=== PATIENT | male | born 1945 | race Caucasian/White ===

== ENCOUNTER → 2016-05-20 | Outpatient (CLI) | payer MEDICARE, OTHER ==
[2016-03-27 17:46] VITALS: BP 183/106
[~2016-05-20] MED LIST: ATOR10TA PO; CARV12.5 PO; CARV12.52 PO; CARV6.252 PO; CHOL10003 PO; DICL100G7 TP; FINA5TAB4 PO; FURO40TA4 PO; GADOBUTROL 10 MMOL/10 ML VIAL IV ONE; GARL5000 PO; HYDR-963 PO; KRIL1CAP5 PO; LIDO700A4 TD; LOSA50TA6 PO; MONT10TA6 PO; MONT10TA9 PO; MULT1TAB52 PO; OMEG1CAP6 PO; OMEG500C PO; OXYC-323 PO; POTA10TA10 PO; TAMS0.4C2 PO; TIZA4TAB PO; WARF1TAB PO; WARF3TAB7 PO; WARF5TAB PO; WARF7.5T6 PO
--- NOTE | 2016-05-20 11:17 | KCIC ---
PROCEDURE MRI left wrist without contrast dated 05/20/2016. HISTORY Left wrist pain. History of rheumatoid arthritis. TECHNIQUE Routine multiplanar multisequence MR imaging of left wrist performed. The study was initially scheduled as a with and without contrast exam, however the patient refused administration of IV contrast. COMPARISON None. FINDINGS Small radiocarpal and midcarpal joint effusions with thickening and increased signal of the joint capsule. Suspect small loose bodies or debris at the radiocarpal joint space. Nodular focus inferior to the pisiform bone measures 5 millimeters. Mild degenerate changes at the proximal and mid carpal row. Moderate degenerate change of the 1st carpometacarpal joint and scaphoid trapezial joint. Thinning and surface irregularity of the articular cartilage. Probable full-thickness cartilage loss of the scaphotrapezial joint and 1st carpal metacarpal joint with near full-thickness cartilage loss at the radioscaphoid articulation. Mild subchondral edema at the distal pole of the scaphoid possible small erosion at the distal pole of the scaphoid with blunting of the ulnar styloid. Mild degenerative change of the pisotriquetral joint. There is no significant scapholunate dissociation. The volar band scapholunate ligament attachment is ill-defined. Dorsal band appears to be intact. Lunotriquetral ligament is grossly intact. There is deficiency of the central articular disc of the TFC complex with ulnar plus variance and ulnar-lunate abutment. The dorsal and volar radial ulnar ligament attachments are grossly intact. Foveal and styloid attachments are ill-defined. There is increased signal of the extensor carpi ulnaris tendon at the level of the ulnar groove. No tendon sheath fluid. Flexor and extensor tendons are otherwise intact. There is mild increased signal of the flexor tendons proximal to the carpal tunnel with mild edema in the peritendon soft tissues. Ulnar tunnel grossly intact. IMPRESSION - Thickening and increased signal of the joint capsule with small radiocarpal and midcarpal joint effusions. This is nonspecific but could be related to infectious or inflammatory synovitis, possibly related to known rheumatoid arthritis. - Proximal flexor tendinosis with mild tendinosis of the extensor carpi ulnaris. - Ill definition of the volar attachment of the scapholunate ligament complex, degeneration versus tear. There is no significant scapholunate dissociation. - Degeneration and/or tear of the TFC articular disc with ulnar-lunate abutment. There is also degeneration or tear of the foveal and styloid attachments. - Degenerative changes and chondromalacia at the carpus. There is also possible subtle erosive changes of the distal pole of the scaphoid bone and the ulnar-styloid, possibly related to inflammatory arthropathy. Electronically signed by: Fan Damian (May 20, 2016 11:15:40)
== END | disposition home or self-care (01) ==
LOC: KCIC MRI 09:10
PROVIDERS: ATTEND Plastic Surgery
DX: M25.531 Pain in right wrist (principal); M25.532 Pain in left wrist
CPT/HCPCS: 73221

== ENCOUNTER 2016-05-25 14:57 | Inpatient (IN) | payer MEDICARE, OTHER ==
[~2016-05-25] VITALS: Ht 180.3 cm; Wt 94.3 kg
[~2016-05-25 14:57] MED LIST changes: -CHOL10003 PO; -GADOBUTROL 10 MMOL/10 ML VIAL IV ONE; -WARF1TAB PO
--- NOTE | 2016-05-25 15:26 | RAD ---
EXAM: Chest one view. HISTORY: Chest pain. COMPARISON: 03/09/2016. FINDINGS: A frontal view of the chest is obtained. There are no confluent infiltrates. The lungs are expanded to the 11th posterior ribs. There is no pneumothorax or pleural effusion. The heart is not enlarged. IMPRESSION: 1. Hyperinflation. Correlate for air trapping. No confluent infiltrates.
[2016-05-25 15:57] LABS: BASO % 0 % (0-3); EOS % 1 % (0-3); HEMATOCRIT 37.8 % (39.0-53.0); HEMOGLOBIN 12.4 g/dL (13.0-17.5); LYMPH # 1.4 x10^3/uL (1.0-4.8); LYMPH % 13 % (24-48); MEAN CORPUSCULAR HEMOGLOBIN 29 pg (25-35); MEAN CORPUSCULAR HGB CONC 33 g/dL (31-37); MEAN CORPUSCULAR VOLUME 87 fL (79-100); MONO % 10 % (0-9); NEUT % 76 % (31-73); PLATELET COUNT 268 x10^3/uL (140-400); RED BLOOD COUNT 4.32 x10^6/uL (4.30-5.70); RED CELL DISTRIBUTION WIDTH 14.8 % (11.5-14.5); WHITE BLOOD COUNT 10.5 x10^3/uL (4.0-11.0)
[2016-05-25] MEDS ORDERED: LIDO:MAALOX:DONNATAL 1:1:1 15 ML SINGLE DOSE SWSW ONE (16:00)
[2016-05-25] MEDS ORDERED: IV NORMAL SALINE 1000ML BAG 1,000 ML IV SCH (16:06)
[2016-05-25 16:07] LABS: INR 2.4 (0.8-1.1); PROTHROMBIN TIME PATIENT 24.4 SEC (11.7-14.0)
[2016-05-25] MEDS ORDERED: ACETAMINOPHEN 325 MG TABLET. PO PRN (16:15)
[2016-05-25] MEDS ORDERED: NITROGLYCERIN SUBLINGUAL 0.4 MG BOTTLE OF 25. SL PRN (16:15)
[2016-05-25] MEDS ORDERED: ONDANSETRON PF 4 MG/2 ML VIAL. IV PRN (16:15)
[2016-05-25 16:18] LABS: ALBUMIN 3.4 g/dL (3.4-5.0); CALCIUM 9.3 mg/dL (8.5-10.1); CREATININE 0.8 mg/dL (0.7-1.3); DIRECT BILIRUBIN 0.4 mg/dL (0.0-0.2); GFR 95.3; POTASSIUM 3.9 mmol/L (3.5-5.1); TOTAL BILIRUBIN 0.9 mg/dL (0.2-1.0); TOTAL PROTEIN 7.8 g/dL (6.4-8.2)
--- NOTE | 2016-05-25 16:59 | RAD ---
EXAM: Right upper quadrant ultrasound. HISTORY: Right upper quadrant pain. COMPARISON: None. FINDINGS: Sonographic evaluation of the right upper quadrant was performed. The liver appears normal in parenchymal echotexture. There are no focal lesions. There is a gallstone within the gallbladder. There is no pericholecystic fluid or wall thickening. The bus monitor notes tenderness on scanning over the gallbladder. The common duct measures 10 mm. No distal obstructing lesion is identified. The visualized portions of the head and body of the pancreas reveal no abnormality. The right kidney measures 13.3 cm. Cortical thickness and echogenicity are preserved. There is no hydronephrosis. A large cyst at the right renal upper pole measures 8.5 x 7.6 cm. The inferior vena cava appears somewhat dilated in its hepatic portion. The abdominal aorta is not well seen, but no aneurysm is identified. IMPRESSION: 1. Cholelithiasis. There is no clear sonographic evidence of acute cholecystitis, but the bus monitor notes tenderness over the gallbladder. Correlate with other data to exclude acute cholecystitis. 2. Mild extrahepatic biliary dilatation without a clear distal obstructing lesion. Correlate for cholestasis. CT or MRI could further assess for obstruction if there is persistent concern. 3. Prominent inferior vena cava. Correlate for volume overload or right heart failure. 4. Large benign cyst at the right renal upper pole measuring 8.5 cm.
[2016-05-25] MEDS ORDERED: HYDROMORPHONE 2 MG/ML VIAL. IV ONE (17:15)
--- NOTE | 2016-05-25 18:37 | PHYS DOC ---
Past Medical History Past Medical History: A-Fib, Arthritis, Hypertension, Other Additional Past Medical Histor: KIDNEY DISEASE Past Surgical History: Knee Replacement, Tonsillectomy, Other Additional Past Surgical Histo: BACK, L HIP Alcohol Use: Occasionally Drug Use: None Adult General Chief Complaint Chief Complaint: GI PROBLEM HPI HPI Patient is a 71 year old gentleman who has no history significant for coronary artery disease presents to the ER today complaining of chest pain. Patient reports the pain started in his abdomen and then moved up to his chest and shoulder. Patient reports he normally goes to his chiropractor for discount discomfort. Patient describes the pain as a tightness in his chest. Patient reports pain is worsened when he sits up in bed. Patient denies any fevers shaking chills nausea vomiting diarrhea. Patient reports she does have some shortness of breath. Denies any diaphoresis. Patient reports he has a history atrial fibrillation and hypertension. Patient denies any diabetes liver or lung problems. Patient reports she has a history of stage II kidney disease. Patient has had not had any surgeries in the past. No prior MIs. Patient had a stress test in February 2016. Patient reports no prior cardiac catheter. Patient does not smoke or drink. Patient's physical exam here in the ED was significant for tenderness to palpation in his right upper quadrant. Patient has no Escalante sign. Patient's lungs were clear. Patient's heart revealed A. fib. Patient's ER workup was significant for normal labs, normal cardiac workup, ultrasound of his right upper quadrant which revealed gallstones and some mildly dilated hepatic ducts. There was no stones within docks. Review of Systems Review of Systems Constitutional: Denies fever or chills [] Eyes: Denies change in visual acuity, redness, or eye pain [] HENT: Denies nasal congestion or sore throat [] All other review of systems are negative except as documented in the history of present illness portion. Current Medications Current Medications Current Medications Medications (Trade) Dose Ordered Sig/Loretta Start Time Stop Time Status Last Admin Dose Admin Multi-Ingredient Mouthwash/Gargle (Gi Cocktail Single Dose) 15 ml 1X ONCE 05/25/16 16:00 05/25/16 16:01 DC 05/25/16 16:08 15 ML Allergies Allergies Allergies Coded Allergies Type Severity Reaction Last Updated Verified No Known Drug Allergies 03/17/16 No Physical Exam Physical Exam Constitutional: Well developed, well nourished, no acute distress, non-toxic appearance. [] HENT: Normocephalic, atraumatic, bilateral external ears normal, oropharynx moist, no oral exudates, nose normal. [] Eyes: PERRLA, EOMI, conjunctiva normal, no discharge. [] Neck: Normal range of motion, no tenderness, supple, no stridor. [] Cardiovascular:Heart rate regular rhythm, no murmur [] Lungs & Thorax: Bilateral breath sounds clear to auscultation [] Abdomen: Right upper quadrant tenderness to palpation. No Escalante sign. Skin: Warm, dry, no erythema, no rash. [] Back: No tenderness, no CVA tenderness. [] Extremities: No tenderness, no cyanosis, no clubbing, ROM intact, no edema. [] Neurologic: Alert and oriented X 3, normal motor function, normal sensory function, no focal deficits noted. [] Psychologic: Affect normal, judgement normal, mood normal. [] Current Patient Data Vital Signs Vital Signs Date Time Temp Pulse Resp B/P Pulse Ox O2 Delivery O2 Flow Rate FiO2 05/25/16 16:00 78 18 127/61 98 Room Air 05/25/16 15:07 97.8 97.8 Lab Values Laboratory Tests Test 05/25/16 15:37 White Blood Count 10.5x10^3/uL (4.0-11.0) Red Blood Count 4.32x10^6/uL (4.30-5.70) Hemoglobin 12.4g/dL (13.0-17.5) L Hematocrit 37.8% (39.0-53.0) L Mean Corpuscular Volume 87fL (79-100) Mean Corpuscular Hemoglobin 29pg (25-35) Mean Corpuscular Hemoglobin Concent 33g/dL (31-37) Red Cell Distribution Width 14.8% (11.5-14.5) H Platelet Count 268x10^3/uL (140-400) Neutrophils (%) (Auto) 76% (31-73) H Lymphocytes (%) (Auto) 13% (24-48) L Monocytes (%) (Auto) 10% (0-9) H Eosinophils (%) (Auto) 1% (0-3) Basophils (%) (Auto) 0% (0-3) Neutrophils # (Auto) 7.9x10^3uL (1.8-7.7) H Lymphocytes # (Auto) 1.4x10^3/uL (1.0-4.8) Monocytes # (Auto) 1.0x10^3/uL (0.0-1.1) Eosinophils # (Auto) 0.1x10^3/uL (0.0-0.7) Basophils # (Auto) 0.0x10^3/uL (0.0-0.2) Prothrombin Time 24.4SEC (11.7-14.0) H Prothrombin Time INR 2.4 (0.8-1.1) H Sodium Level 138mmol/L (136-145) Potassium Level 3.9mmol/L (3.5-5.1) Chloride Level 101mmol/L (98-107) Carbon Dioxide Level 30mmol/L (21-32) Anion Gap 7 (6-14) Blood Urea Nitrogen 19mg/dL (8-26) Creatinine 0.8mg/dL (0.7-1.3) Estimated GFR (Cockcroft-Gault) 95.3 Glucose Level 103mg/dL (70-99) H Calcium Level 9.3mg/dL (8.5-10.1) Total Bilirubin 0.9mg/dL (0.2-1.0) Direct Bilirubin 0.4mg/dL (0.0-0.2) H Aspartate Amino Transferase (AST) 206U/L (15-37) H Alanine Aminotransferase (ALT) 137U/L (16-63) H Alkaline Phosphatase 130U/L (46-116) H Troponin I Quantitative < 0.017ng/mL (0.000-0.055) QI-Phx-F-Type Natriuretic Peptide 851pg/mL (0-124) H Total Protein 7.8g/dL (6.4-8.2) Albumin 3.4g/dL (3.4-5.0) Lipase 168U/L (73-393) Laboratory Tests 05/25/16 15:37 Laboratory Tests 05/25/16 15:37 EKG EKG [] Radiology/Procedures Radiology/Procedures [] Course & Med Decision Making Course & Med Decision Making Pertinent Labs and Imaging studies reviewed. (See chart for details) [] Dragon Disclaimer Dragon Disclaimer This electronic medical record was generated, in whole or in part, using a voice recognition dictation system. Departure Departure Impression: Primary Impression: Atrial fibrillation Additional Impressions: Chest pain Angina pectoris Cholelithiasis Abdominal pain Disposition: ADMITTED INPATIENT Admitting Physician: Bassam Smith Condition: GUARDED Referrals: BASSAM SMITH MD (PCP) Problem Qualifiers KENDALL REYES MD May 25, 2016 18:36
[2016-05-25 19:30] VITALS: BP 152/81
[2016-05-25] MEDS ORDERED: CHOL10003 PO (19:33)
[2016-05-25] MEDS ORDERED: ATORVASTATIN CALCIUM 10 MG TABLET. PO SCH (21:00)
[2016-05-25] MEDS: TAMSULOSIN 0.4 MG CAP.ER.24H. PO SCH (21:19)
[2016-05-25] MEDS: MONTELUKAST SODIUM 10 MG TABLET. PO SCH (21:19)
[2016-05-25] MEDS: FINASTERIDE 5 MG TABLET PO SCH (21:19)
[2016-05-25] MEDS: OXYCODONE/APAP 5/325 TABLET. PO PRN (21:20)
[2016-05-25] MEDS: LOSARTAN POTASSIUM 50 MG TABLET. PO SCH (21:20)
[2016-05-25] MEDS: IV NORMAL SALINE 1000ML BAG 1,000 ML IV SCH (21:21)
[2016-05-25 22:38] VITALS: BP 151/89
[2016-05-25 23:40] VITALS: BP 147/70
[2016-05-26] VITALS (21 sets, daily range): BP systolic 151–182; BP diastolic 74–113
[2016-05-26] MEDS: OXYCODONE/APAP 5/325 TABLET. PO PRN ×5 (01:52→22:10)
[2016-05-26 03:45] LABS: HEMATOCRIT 33.7 % (39.0-53.0); RED BLOOD COUNT 3.85 x10^6/uL (4.30-5.70); RED CELL DISTRIBUTION WIDTH 14.2 % (11.5-14.5); WHITE BLOOD COUNT 5.5 x10^3/uL (4.0-11.0)
[2016-05-26 03:55] LABS: INR 1.9 (0.8-1.1); PROTHROMBIN TIME PATIENT 20.7 SEC (11.7-14.0)
[2016-05-26 04:04] LABS: ALBUMIN 3.3 g/dL (3.4-5.0); CREATININE 0.7 mg/dL (0.7-1.3); GFR 111.2; POTASSIUM 3.7 mmol/L (3.5-5.1); TOTAL BILIRUBIN 1.4 mg/dL (0.2-1.0); TOTAL PROTEIN 6.6 g/dL (6.4-8.2)
[2016-05-26] MEDS: FENTANYL PF 100 MCG/2 ML VIAL. IV PRN ×2 (04:44→08:31)
--- NOTE | 2016-05-26 06:36 | EKG ---
[facility] [address] [place] [address] Test Date: 2016-05-25 Test Time: 15:09:10 Pat Name: SHAUNA ARRIAZA Department: Room: 206 1 Gender: M Entry Specialist: : 1945 Requested By: KENDALL REYES Order Number: [id number] Reading MD: Naye Lara Measurements Intervals [place] Rate: 92 P: MS: QRS: 34 QRSD: 88 T: 37 QT: 352 QTc: 440 Interpretive Statements ATRIAL FIBRILLATION LOW LIMB LEAD VOLTAGE QRS(T) CONTOUR ABNORMALITY CONSIDER ANTEROLATERAL MYOCARDIAL DAMAGE ABNORMAL ECG RI6.01 No previous ECG available for comparison Electronically Signed On 05-30-2016 19:29:52 [employer] by Naye Lara
[2016-05-26] MEDS ORDERED: ACETAMINOPHEN 325 MG TABLET. PO PRN (07:45)
[2016-05-26] MEDS ORDERED: LORAZEPAM 0.5 MG TABLET. PO PRN (08:00)
--- NOTE | 2016-05-26 08:08 | PDOC1 ---
SLICK RUTHERFORD GEOMAGNETICIAN 05/26/16 0807: HISTORY AND PHYSICAL Chief Complaint Chief Complaint This 71 year old male has been admitted with a chief complaint of chest pain starting in RUQ abdomen, racdiating into chest and into shoulder. The chest pain is tightness that worsened when he tried to set up. He denies palpitations, rapid heart rate, and shortness of breath. He underwent MPI lexiscan in Feb 2016 with low probability for cardiac event. He has been on warfarin post TKR. His EKG in ED was SR and CE troponin negative. He underwent sonogram of the RUQ with tenderness, + cholelithiasis without signs acute cholecystitis. There was mild extrahepatic biliary dilatation without a clear distal obstructing lesion. His LFTs were significantly elevated. He has been admitted for further evaluation and treatment. Problem List Problems Medical Problems: (1) Abdominal pain Status: Acute (2) Angina pectoris Status: Acute (3) Atrial fibrillation Status: Acute (4) Chest pain Status: Acute (5) Cholelithiasis Status: Acute Past Medical History Cardiovascular: HTN, Hyperlipidemia Psych: Anxiety Musculoskeletal: low back pain (DDD LS mild spinal canal stenosis L3-L4), Osteoarthritis (R hip ), Other (bilateral wrist pain/weakness, L shoulder pain with reduced ROM) Renal/: Benign prostatic enlarg. (wiith obstructive symptoms ) Past Surgical History PSH hemilaminectomy L4-L5 Past Surgical History: Total knee replacement (Right Mar 2016), Tonsillectomy Past Family History PFH Non contributory Past Social History PSH , negative tobacco, occasion ETOH, negative illicit drugs. Review of Symptoms Review of Symptoms A 14 point ROS was completed with the following noted as positive: per HPI Other systems reviewed and negative. Medications Medications reviewed and reconciled Allergy Allergies Coded Allergies Type Severity Reaction Last Updated Verified No Known Drug Allergies 03/17/16 No Physical Exam Physical Exam General appearance - alert, anxious crying. in mod distress Mental Status - alert, oriented to person, place, and time, anxious Head - normal Chest - clear to auscultation, no wheezes, rales or rhonchi, symmetric air entry Heart - S1 and S2 normal Abdomen - soft, + tender RUQ, BS +, obese Neurological - no acute focal neurological deficit noted Musculoskeletal - R hip pain with movement, pain bilateral wrist, Pain with decreased ROM L shoulder Extremities - no pedal edema Skin - warm and dry VTE Prophylaxis Ordered VTE Prophylaxis Devices: Yes VTE Pharmacological Prophylaxi: No (currently on warfarin ) Assessment Labs Laboratory Tests Test 05/25/16 15:37 05/25/16 21:20 05/26/16 03:17 White Blood Count 10.5x10^3/uL (4.0-11.0) 5.5x10^3/uL (4.0-11.0) Red Blood Count 4.32x10^6/uL (4.30-5.70) 3.85x10^6/uL (4.30-5.70) Hemoglobin 12.4g/dL (13.0-17.5) 11.0g/dL (13.0-17.5) Hematocrit 37.8% (39.0-53.0) 33.7% (39.0-53.0) Mean Corpuscular Volume 87fL (79-100) 87fL (79-100) Mean Corpuscular Hemoglobin 29pg (25-35) 29pg (25-35) Mean Corpuscular Hemoglobin Concent 33g/dL (31-37) 33g/dL (31-37) Red Cell Distribution Width 14.8% (11.5-14.5) 14.2% (11.5-14.5) Platelet Count 268x10^3/uL (140-400) 204x10^3/uL (140-400) Neutrophils (%) (Auto) 76% (31-73) Lymphocytes (%) (Auto) 13% (24-48) Monocytes (%) (Auto) 10% (0-9) Eosinophils (%) (Auto) 1% (0-3) Basophils (%) (Auto) 0% (0-3) Neutrophils # (Auto) 7.9x10^3uL (1.8-7.7) Lymphocytes # (Auto) 1.4x10^3/uL (1.0-4.8) Monocytes # (Auto) 1.0x10^3/uL (0.0-1.1) Eosinophils # (Auto) 0.1x10^3/uL (0.0-0.7) Basophils # (Auto) 0.0x10^3/uL (0.0-0.2) Prothrombin Time 24.4SEC (11.7-14.0) 20.7SEC (11.7-14.0) Prothromb Time International Ratio 2.4 (0.8-1.1) 1.9 (0.8-1.1) Sodium Level 138mmol/L (136-145) 143mmol/L (136-145) Potassium Level 3.9mmol/L (3.5-5.1) 3.7mmol/L (3.5-5.1) Chloride Level 101mmol/L (98-107) 103mmol/L (98-107) Carbon Dioxide Level 30mmol/L (21-32) 32mmol/L (21-32) Anion Gap 7 (6-14) 8 (6-14) Blood Urea Nitrogen 19mg/dL (8-26) 19mg/dL (8-26) Creatinine 0.8mg/dL (0.7-1.3) 0.7mg/dL (0.7-1.3) Estimated GFR (Cockcroft-Gault) 95.3 111.2 Glucose Level 103mg/dL (70-99) 92mg/dL (70-99) Calcium Level 9.3mg/dL (8.5-10.1) 9.0mg/dL (8.5-10.1) Total Bilirubin 0.9mg/dL (0.2-1.0) 1.4mg/dL (0.2-1.0) Direct Bilirubin 0.4mg/dL (0.0-0.2) Aspartate Amino Transf (AST/SGOT) 206U/L (15-37) 426U/L (15-37) Alanine Aminotransferase (ALT/SGPT) 137U/L (16-63) 398U/L (16-63) Alkaline Phosphatase 130U/L (46-116) 182U/L (46-116) Troponin I Quantitative < 0.017ng/mL (0.000-0.055) < 0.017ng/mL (0.000-0.055) < 0.017ng/mL (0.000-0.055) HH-Wgc-V-Type Natriuretic Peptide 851pg/mL (0-124) Total Protein 7.8g/dL (6.4-8.2) 6.6g/dL (6.4-8.2) Albumin 3.4g/dL (3.4-5.0) 3.3g/dL (3.4-5.0) Lipase 168U/L (73-393) BUN/Creatinine Ratio 27 (6-20) Albumin/Globulin Ratio 1.0 (1.0-1.7) Laboratory Tests Test 05/25/16 15:37 05/25/16 21:20 05/26/16 03:17 White Blood Count 10.5x10^3/uL (4.0-11.0) 5.5x10^3/uL (4.0-11.0) Red Blood Count 4.32x10^6/uL (4.30-5.70) 3.85x10^6/uL (4.30-5.70) Hemoglobin 12.4g/dL (13.0-17.5) 11.0g/dL (13.0-17.5) Hematocrit 37.8% (39.0-53.0) 33.7% (39.0-53.0) Mean Corpuscular Volume 87fL (79-100) 87fL (79-100) Mean Corpuscular Hemoglobin 29pg (25-35) 29pg (25-35) Mean Corpuscular Hemoglobin Concent 33g/dL (31-37) 33g/dL (31-37) Red Cell Distribution Width 14.8% (11.5-14.5) 14.2% (11.5-14.5) Platelet Count 268x10^3/uL (140-400) 204x10^3/uL (140-400) Neutrophils (%) (Auto) 76% (31-73) Lymphocytes (%) (Auto) 13% (24-48) Monocytes (%) (Auto) 10% (0-9) Eosinophils (%) (Auto) 1% (0-3) Basophils (%) (Auto) 0% (0-3) Neutrophils # (Auto) 7.9x10^3uL (1.8-7.7) Lymphocytes # (Auto) 1.4x10^3/uL (1.0-4.8) Monocytes # (Auto) 1.0x10^3/uL (0.0-1.1) Eosinophils # (Auto) 0.1x10^3/uL (0.0-0.7) Basophils # (Auto) 0.0x10^3/uL (0.0-0.2) Prothrombin Time 24.4SEC (11.7-14.0) 20.7SEC (11.7-14.0) Prothromb Time International Ratio 2.4 (0.8-1.1) 1.9 (0.8-1.1) Sodium Level 138mmol/L (136-145) 143mmol/L (136-145) Potassium Level 3.9mmol/L (3.5-5.1) 3.7mmol/L (3.5-5.1) Chloride Level 101mmol/L (98-107) 103mmol/L (98-107) Carbon Dioxide Level 30mmol/L (21-32) 32mmol/L (21-32) Anion Gap 7 (6-14) 8 (6-14) Blood Urea Nitrogen 19mg/dL (8-26) 19mg/dL (8-26) Creatinine 0.8mg/dL (0.7-1.3) 0.7mg/dL (0.7-1.3) Estimated GFR (Cockcroft-Gault) 95.3 111.2 Glucose Level 103mg/dL (70-99) 92mg/dL (70-99) Calcium Level 9.3mg/dL (8.5-10.1) 9.0mg/dL (8.5-10.1) Total Bilirubin 0.9mg/dL (0.2-1.0) 1.4mg/dL (0.2-1.0) Direct Bilirubin 0.4mg/dL (0.0-0.2) Aspartate Amino Transf (AST/SGOT) 206U/L (15-37) 426U/L (15-37) Alanine Aminotransferase (ALT/SGPT) 137U/L (16-63) 398U/L (16-63) Alkaline Phosphatase 130U/L (46-116) 182U/L (46-116) Troponin I Quantitative < 0.017ng/mL (0.000-0.055) < 0.017ng/mL (0.000-0.055) < 0.017ng/mL (0.000-0.055) MZ-Kdy-H-Type Natriuretic Peptide 851pg/mL (0-124) Total Protein 7.8g/dL (6.4-8.2) 6.6g/dL (6.4-8.2) Albumin 3.4g/dL (3.4-5.0) 3.3g/dL (3.4-5.0) Lipase 168U/L (73-393) BUN/Creatinine Ratio 27 (6-20) Albumin/Globulin Ratio 1.0 (1.0-1.7) Plan Plan IMPRESSION: 1. acute RUQ abdominal pain cholelithiasis with transaminitis 2. chest pain r/t RUQ pain 3. malignant HTN 4. anxiety 5. hyperlipidemia 6. chronic LBP with h/o DDD LS 7. anemia chronic disease 8. anticoagulation therapy post R TKR 9. bilateral wrist pain with weakness 10. R hip pain OA 11. obstructive BPH PLAN: chest pain Rowena scan MPI 02/2016 low prob cardiac event CE negative cardiology consult secondary to cholelithiasis RUQ pain/cholelithiasis surgical consult GI consult transaminitis Admit AST 206 05/26 426 ALT 130 398 AP 130 185 Direct bili 1.4 IV NS 75cc/hr anticoagulation post TKR Admit INR 2.4 05/26 1.9 pharmacy to manage post op malignant HTN give oral meds this morning with sip water treat anxiety-Ativan 0.5mg IV q6hr prn hydralazine 10mg IV prn q6hr obstructive BPH will need resumption medications -sx are severe w/o meds DVT/GI prophylaxis SCD/Estuardo Pepcid For more details regarding further plans, please refer to the orders. BASSAM SMITH MD 05/26/16 1117: HISTORY AND PHYSICAL Plan Plan Chest pain is noncardiac. He is very anxious.D/w patient ,his and staff. INR 1.7. May need more FFP. Has some swelling of wrists.MRI d/w him. IV Ativan. LFts elevated. The patient was seen and examined by me. Chart reviewed and plan of care formulated. Discussed with, reviewed and agree with PYTHON DEVELOPER's notes, plan of care and orders with modifications as necessary. For more details regarding further plans, please refer to the orders. SLICK RUTHERFORD APRN May 26, 2016 08:07 BASSAM SMITH MD May 26, 2016 11:17
[2016-05-26] MEDS: CARVEDILOL 12.5 MG TABLET PO SCH (08:23)
[2016-05-26] MEDS: CHOLECALCIFEROL (VITAMIN D3) 1,000 UNIT TABLET PO SCH (08:34)
[2016-05-26] MEDS: MULTIVITAMIN with MINERAL TABLET. PO SCH (08:34)
[2016-05-26] MEDS ORDERED: EPA PO SCH (09:00)
[2016-05-26] MEDS ORDERED: [UNRECOGNIZED DRUG - OTHER] PO SCH (09:00)
[2016-05-26] MEDS ORDERED: ASTX PO SCH (09:00)
[2016-05-26] MEDS ORDERED: LIP PO SCH (09:00)
[2016-05-26] MEDS ORDERED: DHA PO SCH (09:00)
[2016-05-26] MEDS ORDERED: KRILL PO SCH (09:00)
[2016-05-26] MEDS ORDERED: GARLIC PO SCH (09:00)
[2016-05-26 09:02] LABS: INR 1.7 (0.8-1.1); PROTHROMBIN TIME PATIENT 18.7 SEC (11.7-14.0)
[2016-05-26] MEDS: IV NORMAL SALINE 1000ML BAG 1,000 ML IV SCH ×2 (09:07→23:55)
[2016-05-26] MEDS ORDERED: SINCALIDE 2 MCG in IV NORMAL SALINE 50ML 30 ML IV ONE (09:30)
--- NOTE | 2016-05-26 09:30 | PDOC2 ---
DIANE BUCHANAN FACULTY RESEARCH PHYSICIAN 05/26/16 0930: CARDIAC CONSULT DATE OF CONSULT Date of Consult DATE: 05/26/16 TIME: 09:23 REASON FOR CONSULT Reason for Consult: Chest pain REFERRING PHYSICIAN Referring Physician: Jovanna SOURCE Source: Chart review, Patient HISTORY OF PRESENT ILLNESS HISTORY OF PRESENT ILLNESS This is a pleasant gentleman admitted for complains of abdominal pain. Reports that this occurred yesterday afternoon after going to the bathroom. Started having diffuse abdominal pain which then went midchest then to right shoulder momentarily then dissipated and lasted about 20 minutes but her abdominal pain lingered. Denies any nausea, SOA, palpitations. He is compliant with his cardiac medications. Upon admission he was then noted with gallstones and biliary duct dilatation. Currently he is doing better. He recently had TKA on 03/2016 and also had stress test prior to that and he did very well. Denies any activity intolerance and no exertional SOA. PAST MEDICAL HISTORY Cardiovascular: AFIB, HTN, Hyperlipidemia Pulmonary: Asthma Heme/Onc: Other (chronic anticoagulation) Psych: Anxiety Musculoskeletal: low back pain (lumbar stenosis), Osteoarthritis Renal/: Chronic renal insuff (CKD2), Benign prostatic enlarg. PAST SURGICAL HISTORY Past Surgical History: Total hip replacement (left), Total knee replacement ( right (03/2016)), Tonsillectomy, Other (back surgery) FAMILY HISTORY Family History: Diabetes (father) SOCIAL HISTORY Smoke: No (quit) ALCOHOL: none Drugs: None Lives: with Family CURRENT MEDICATIONS CURRENT MEDICATIONS Current Medications Medications (Trade) Dose Ordered Sig/Loretta Route PRN Reason Start Time Stop Time Status Last Admin Dose Admin Multi-Ingredient Mouthwash/Gargle (Gi Cocktail Single Dose) 15 ml 1X ONCE SWSW 05/25/16 16:00 05/25/16 16:01 DC 05/25/16 16:08 Fentanyl Citrate (Fentanyl 2ml Vial) 50 mcg PRN Q2HR PRN IV PAIN 05/25/16 16:15 05/26/16 16:14 05/26/16 08:31 Hydromorphone HCl (Dilaudid) 1 mg 1X ONCE IV 05/25/16 17:15 05/25/16 17:16 DC 05/25/16 17:22 Atorvastatin Calcium (Lipitor) 10 mg QHS PO 05/25/16 21:00 05/26/16 07:46 DC 05/25/16 21:20 Carvedilol (Coreg) 12.5 mg DAILYWBKFT PO 05/26/16 08:00 05/26/16 08:23 Finasteride (Proscar) 5 mg QHS PO 05/25/16 21:00 05/25/16 21:19 Losartan Potassium (Cozaar) 50 mg QHS PO 05/25/16 21:00 05/25/16 21:20 Montelukast Sodium (Singulair) 10 mg HS PO 05/25/16 21:00 05/25/16 21:19 Oxycodone/ Acetaminophen (Percocet 5/325) 1 tab PRN Q4HRS PRN PO SEVERE PAIN 05/25/16 21:00 05/26/16 06:17 Tamsulosin HCl 0.8 mg 0.8 mg QHS PO 05/25/16 21:00 05/25/16 21:19 Sodium Chloride (Iv Sodium Chloride 0.9% 1000ml Bag) 1,000 ml @ 75 mls/hr [id number] IV 05/25/16 21:15 05/26/16 09:07 Lorazepam (Ativan) 0.5 mg PRN Q6HRS PRN PO ANXIETY / AGITATION 05/26/16 08:00 05/26/16 08:27 DC 05/26/16 08:22 ALLERGIES ALLERGIES: Coded Allergies: No Known Drug Allergies (Unverified , 03/17/16) ROS Review of System 14 point ROS evaluated with pertinent positives noted per HPI PHYSICAL EXAM General: Alert, Oriented X3, Cooperative, No acute distress HEENT: Atraumatic, Mucous membr. moist/pink Lungs: Other (faint bibasilar crackles) Heart: Normal S1, Normal S2, Other (AFIB; 2/6 systolic murmur to LLS border) Abdomen: Soft, No tenderness Extremities: No cyanosis, No edema Skin: No breakdown, No significant lesion Neuro: Normal speech, Sensation intact Psych/Mental Status: Mental status NL, Mood NL MUSCULOSKELETAL: Osteoarthritic changes both hands VITALS VITALS Vital Signs Date Time Temp Pulse Resp B/P Pulse Ox O2 Delivery O2 Flow Rate FiO2 05/26/16 09:04 18 99 Room Air 05/26/16 08:23 69 173/99 2/21/17 06:45 97.5 97.5 LABS Lab: Laboratory Tests Test 05/25/16 15:37 05/25/16 21:20 05/26/16 03:17 05/26/16 08:38 White Blood Count 10.5x10^3/uL (4.0-11.0) 5.5x10^3/uL (4.0-11.0) Red Blood Count 4.32x10^6/uL (4.30-5.70) 3.85x10^6/uL (4.30-5.70) Hemoglobin 12.4g/dL (13.0-17.5) 11.0g/dL (13.0-17.5) Hematocrit 37.8% (39.0-53.0) 33.7% (39.0-53.0) Mean Corpuscular Volume 87fL (79-100) 87fL (79-100) Mean Corpuscular Hemoglobin 29pg (25-35) 29pg (25-35) Mean Corpuscular Hemoglobin Concent 33g/dL (31-37) 33g/dL (31-37) Red Cell Distribution Width 14.8% (11.5-14.5) 14.2% (11.5-14.5) Platelet Count 268x10^3/uL (140-400) 204x10^3/uL (140-400) Neutrophils (%) (Auto) 76% (31-73) Lymphocytes (%) (Auto) 13% (24-48) Monocytes (%) (Auto) 10% (0-9) Eosinophils (%) (Auto) 1% (0-3) Basophils (%) (Auto) 0% (0-3) Neutrophils # (Auto) 7.9x10^3uL (1.8-7.7) Lymphocytes # (Auto) 1.4x10^3/uL (1.0-4.8) Monocytes # (Auto) 1.0x10^3/uL (0.0-1.1) Eosinophils # (Auto) 0.1x10^3/uL (0.0-0.7) Basophils # (Auto) 0.0x10^3/uL (0.0-0.2) Prothrombin Time 24.4SEC (11.7-14.0) 20.7SEC (11.7-14.0) 18.7SEC (11.7-14.0) Prothromb Time International Ratio 2.4 (0.8-1.1) 1.9 (0.8-1.1) 1.7 (0.8-1.1) Sodium Level 138mmol/L (136-145) 143mmol/L (136-145) Potassium Level 3.9mmol/L (3.5-5.1) 3.7mmol/L (3.5-5.1) Chloride Level 101mmol/L (98-107) 103mmol/L (98-107) Carbon Dioxide Level 30mmol/L (21-32) 32mmol/L (21-32) Anion Gap 7 (6-14) 8 (6-14) Blood Urea Nitrogen 19mg/dL (8-26) 19mg/dL (8-26) Creatinine 0.8mg/dL (0.7-1.3) 0.7mg/dL (0.7-1.3) Estimated GFR (Cockcroft-Gault) 95.3 111.2 Glucose Level 103mg/dL (70-99) 92mg/dL (70-99) Calcium Level 9.3mg/dL (8.5-10.1) 9.0mg/dL (8.5-10.1) Total Bilirubin 0.9mg/dL (0.2-1.0) 1.4mg/dL (0.2-1.0) Direct Bilirubin 0.4mg/dL (0.0-0.2) Aspartate Amino Transf (AST/SGOT) 206U/L (15-37) 426U/L (15-37) Alanine Aminotransferase (ALT/SGPT) 137U/L (16-63) 398U/L (16-63) Alkaline Phosphatase 130U/L (46-116) 182U/L (46-116) Troponin I Quantitative < 0.017ng/mL (0.000-0.055) < 0.017ng/mL (0.000-0.055) < 0.017ng/mL (0.000-0.055) XX-Epi-L-Type Natriuretic Peptide 851pg/mL (0-124) Total Protein 7.8g/dL (6.4-8.2) 6.6g/dL (6.4-8.2) Albumin 3.4g/dL (3.4-5.0) 3.3g/dL (3.4-5.0) Lipase 168U/L (73-393) BUN/Creatinine Ratio 27 (6-20) Albumin/Globulin Ratio 1.0 (1.0-1.7) ECHOCARDIOGRAM ECHOCARDIOGRAM <Conclusion> Normal LV systolic function and wall motion. EF 65% No significant valvular abnormalities. DATE: 12/19/14 1541 STRESS TEST STRESS TEST Conclusion 1. Regadenoson cardioisotope stress test showed diaphragmatic attenuation artifact without any evidence of ischemia or infarct. 2. Normal left ventricular systolic function with ejection fraction calculated at 69%. 3. Low risk for cardiac events. DATE: 02/21/16 1325 ASSESSMENT/PLAN ASSESSMENT/PLAN 1. Atypical CP: noncardiac. 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 Recent normal MPI 2. New finding Cholelithiasis/transaminitis/mild extrahepatic biliary dilation 3. Permanent AFIB 4. HLP/HTN Recommendations 1. General surgery following 2. Continue with coreg/losartan, start on ECASA while off warfarin 3. Coumadin on hold in anticipation of surgery, resume postop when ok with general surgery 4. Hold statin for now. Problems: UNIQUE MARQUEZ MD 05/27/16 0036: CARDIAC CONSULT ALLERGIES ALLERGIES: Coded Allergies: No Known Drug Allergies (Unverified , 03/17/16) ASSESSMENT/PLAN ASSESSMENT/PLAN Pt. seen and examined. Agree with above MANAGER FRONT note. Late entry for 05/26/2016 71 yo male well known to our practice presenting with non-cardiac cp normal cardiac exam except for irr hr labs/meds reviewed agree with above recs will follow along peripherally. Problems: DIANE BUCHANAN APRN May 26, 2016 09:30 UNIQUE MARQUEZ MD May 27, 2016 00:36
--- NOTE | 2016-05-26 11:47 | RAD ---
EXAM: Nuclear hepatobiliary scan with ejection fraction. HISTORY: Abdominal pain/nausea. TECHNIQUE: Serial static images are obtained of the liver and biliary system in a frontal projection following IV administration of 5.4 mCi of technetium-99m Choletec. After filling of the gallbladder, 2.0 mcg of sincalide were infused over 30 minutes and dynamic imaging continued over this period. The gallbladder ejection fraction was calculated. FINDINGS: There is prompt hepatic clearance of tracer from the blood pool. There is homogeneous distribution throughout the liver. There is normal filling of the gallbladder and normal emptying into the biliary system and small bowel. The gallbladder ejection fraction is 25% (normal >35%). IMPRESSION: 1. Decreased gallbladder ejection fraction suggesting biliary dyskinesia.
--- NOTE | 2016-05-26 11:48 | ACF ---
Admission Forms Criteria ATRIAL FIBRILLATION Clinical Indications for Admission to Inpatient Care (Place 'X' for any and all applicable criteria): Admission indicated for ANY ONE of the following(1)(2)(3)(4)(5) : [ ]I. Myocardial ischemia [X]II. Dyspnea or hypoxemia [ ]III. Hemodynamic instability [ ]IV. Heart failure (e.g., pulmonary edema) (7) [ ]V. New-onset (less than 48 hours) atrial fibrillation with high risk for causing complications secondary to comorbidities (eg, symptomatic heart failure ) [ ]. Altered mental status [ ]VII. Syncope [ ]VIII. Patient has implantable cardioverter defibrillator that has fired more than once within past 24hr or needs immediate adjustment of settings that cannot be done other than in inpatient setting. (8) [ ]IX. Suspected accessory pathway (e.g., Rjart-Rbxsjnrno-Wkwdc syndrome) on ECG [ ]X. Recent systemic thromboembolism (eg, stroke) [ ]XI. Medication toxicity (e.g., digitalis) causing arrhythmia(9) [ ]XII. Underlying medical condition that necessitates inpatient care (e.g., thyrotoxicosis, pneumonia) (10) [ ]XIII. Continuous ECG monitoring is required for condition causing arrhythmia (e.g., severe hyperkalemia, hypokalemia, acid-base disturbance).(11)(12)(13) [ ]XIV. Initiation of antiarrhythmic drug therapy is needed in patient at high risk of adverse effects as indicated by ANY ONE of the following: [ ]a) Significant structural heart disease (e.g., reduced ejection fraction, congenital heart disease, valvular heart disease) [ ]b) Prolonged QT interval [ ]c) Underlying sinus node or atrioventricular conduction disturbances [ ]d) Need for treatment with antiarrhythmic drugs that have significant proarrhythmic potential (e.g., dofetilide, sotalol, procainamide) [ ]e) Patient whose sinus rhythm has never been observed on ECG [ ]XV. Intolerable symptoms despite optimal outpatient treatment [ ]XVI. Elective or urgent cardioversion that cannot be performed on outpatient basis or during observation care. [A] (Use also Atrial Fibrillation: Observation Care ) as appropriate.(14) [ ]XVII.Contraindications and/or Inappropriate clinical situations for Observational Care in patients with Atrial Fibrillation, when ANY ONE of the following is required: [ ]a) Patient with High risk of cardiac embolism (e.g, patients with previous cardiac embolism, LVEF < 40%, age >75 and patients with prosthetic valve) 18 [ ]b) Patient with Moderate risk including DM patient, CAD and patient aged 65-75 18 [ ]c) Patient with any change in cardiac biomarker especially troponin should be managed as high risk in an inpatient setting 19 [ ]d) Physician judgement irrespective of ECG and other diagnostic findings 20 [ ]XVIII.General contraindications and/or Inappropriate clinical situations for Observational Care in patients with Atrial Fibrillation, when ANY ONE of the following is required: [ ]a) Prediction of prolongation of LOS based on ANY ONE of the following may be considered as a contraindication for observational care 2, 3, 4, 5, 6, 7, 8, 9, 10, 11 [ ]i) Age > 65 yrs. [ ]ii) Patient arriving by ambulance [ ]iii) Patient with high acuity [ ]iv) Patient requiring vital sign monitoring [ ]v) Patient on IV medication [ ]b) Systolic blood pressures 180mmHg 3,12 [ ]c) Patient with altered mental status including delirium and other alteration of consciousness3 [ ]d) Patient whose discharge disposition will be to a long-term home or rehabilitation home should not be managed in Emergency Department Observation Unit. CMS rule requires 3 days hospital stay before such placement.3,13 [ ]e) Patient with failure to thrive due to broad array of etiologies 3,16,17 [ ]f) Inability to ambulate 3,14 Extended stay beyond goal length of stay may be needed for (1)(25)(26): [ ]a) Unstable comorbidities [ ]b) Persistently uncontrolled atrial fibrillation or other arrhythmias [ ]c) Acute thromboembolic event (e.g., stroke, limb ischemia) [ ]d) Need for inpatient attainment of full anticoagulation The original [employer] content created by [employer] has been revised. The portions of the content which have been revised are identified through the use of italic text or in bold, and [facility] [employer] has neither reviewed nor approved the modified material. All other unmodified content is copyright [employer]. Please see references footnoted in the original [facility] [employer] edition 2016 Admission Criteria Met?: Yes IGNACIO BILLS May 26, 2016 11:48
--- NOTE | 2016-05-26 11:58 | PDOC2 ---
AGGIE PALENCIA [employer] 05/26/16 1158: CONSULT Date of Consult Date of Consult DATE: 05/26/16 TIME: 11:53 Reason for Consult Reason for Consult: abdominal pain Referring Physician Referring Physician: ER Identification/Chief Complaint Chief Complaint abdominal pain Source Source: Chart review, Patient History of Present Illness Reason for Visit: Acute onset of RUQ pain/epigastric that radiated up chest and into back. No nausea or emesis. Not aggravated by eating. No similar pain in past. Slight cramping pain with Kinevac injection, currently no pain and hungry Past Medical History Cardiovascular: AFIB, HTN, Hyperlipidemia Pulmonary: Asthma Heme/Onc: Other (chronic anticoagulation) Psych: Anxiety Musculoskeletal: low back pain (lumbar stenosis), Osteoarthritis Renal/: Chronic renal insuff, Benign prostatic enlarg. Past Surgical History Past Surgical History: Total hip replacement (left), Total knee replacement ( right (03/2016)), Tonsillectomy, Other (back surgery) Social History Quit ALCOHOL: occassional Drugs: None Lives: with Family Current Problem List Problem List Problems Medical Problems: (1) Abdominal pain Status: Acute (2) Angina pectoris Status: Acute (3) Atrial fibrillation Status: Acute (4) Chest pain Status: Acute (5) Cholelithiasis Status: Acute Current Medications Current Medications Current Medications Multi-Ingredient Mouthwash/Gargle (Gi Cocktail Single Dose) 15 ml 1X ONCE SWSW Last administered on 05/25/16 16:08; Start 05/25/16 at 16:00; Stop 05/25/16 at 16:01; Status DC Ondansetron HCl (Zofran) 4 mg PRN Q8HRS PRN IV NAUSEA/VOMITING; Start 05/25/16 at 16:15; Stop 05/26/16 at 16:14 Fentanyl Citrate 50 mcg 50 mcg PRN Q2HR PRN IV PAIN Last administered on 08:31; Start 05/25/16 at 16:15; Stop 05/26/16 at 16:14 Sodium Chloride (Iv Sodium Chloride 0.9% 1000ml Bag) 1,000 ml @ 100 mls/hr Q10H IV ; Start 05/25/16 at 16:06; Stop 05/25/16 at 21:08; Status DC Acetaminophen (Tylenol) 650 mg PRN Q4HRS PRN PO FEVER; Start 05/25/16 at 16:15 ; Stop 05/26/16 at 07:46; Status DC Nitroglycerin (Nitrostat) 0.4 mg PRN Q5MIN PRN SL CHEST PAIN; Start 05/25/16 at 16:15; Stop 05/26/16 at 16:14 Hydromorphone HCl (Dilaudid) 1 mg 1X ONCE IV Last administered on 05/25/16 17 :22; Start 05/25/16 at 17:15; Stop 05/25/16 at 17:16; Status DC Atorvastatin Calcium (Lipitor) 10 mg QHS PO Last administered on 05/25/16 21: 20; Start 05/25/16 at 21:00; Stop 05/26/16 at 07:46; Status DC Carvedilol (Coreg) 12.5 mg DAILYWBKFT PO Last administered on 05/26/16 08:23; Start 05/26/16 at 08:00 Vitamin D (Vitamin D3) 1,000 unit DAILY PO ; Start 05/26/16 at 09:00 Finasteride (Proscar) 5 mg QHS PO Last administered on 05/25/16 21:19; Start 05/25/16 at 21:00 Losartan Potassium (Cozaar) 50 mg QHS PO Last administered on 05/25/16 21:20; Start 05/25/16 at 21:00 Montelukast Sodium (Singulair) 10 mg HS PO Last administered on 05/25/16 21:19 ; Start 05/25/16 at 21:00 Oxycodone/ Acetaminophen (Percocet 5/325) 1 tab PRN Q4HRS PRN PO SEVERE PAIN Last administered on 05/26/16 11:20; Start 05/25/16 at 21:00 Tamsulosin HCl (Flomax) 0.8 mg QHS PO Last administered on 05/25/16 21:19; Start 05/25/16 at 21:00 Non-Formulary Medication 5,000 mcg DAILY PO ; Start 05/26/16 at 09:00; Status UNV Non-Formulary Medication 1 each DAILY PO ; Start 05/26/16 at 09:00; Status UNV Multivitamins/ Calcium 1 tab 1 tab DAILY PO ; Start 2/21/17 at 09:00 Sodium Chloride (Iv Sodium Chloride 0.9% 1000ml Bag) 1,000 ml @ 75 mls/hr [id number] IV Last administered on 05/26/16 09:07; Start 05/25/16 at 21:15 Acetaminophen (Tylenol) 650 mg PRN Q6HRS PRN PO FEVER; Start 05/26/16 at 07:45 Lorazepam (Ativan) 0.5 mg PRN Q6HRS PRN PO ANXIETY / AGITATION Last administered on 05/26/16 08:22; Start 05/26/16 at 08:00; Stop 05/26/16 at 08:27 ; Status DC Hydralazine HCl (Apresoline) 10 mg PRN Q4HRS PRN IVP ELEVATED BP, SEE COMMENTS ; Start 05/26/16 at 08:00 Lorazepam 0.5 mg 0.5 mg PRN Q6HRS PRN IV ANXIETY / AGITATION; Start 05/26/16 at 08:30 Sincalide/Sodium Chloride (Kinevac/Iv Sodium Chloride 0.9% 50ml) 30 ml @ 120 mls/hr 1X ONCE IV Last administered on 05/26/16 10:44; Start 05/26/16 at 09: 30; Stop 05/26/16 at 09:44; Status DC Active Scripts Active Reported Vitamin D3 (Cholecalciferol (Vitamin D3)) 1,000 Unit Tablet 1 Tab PO DAILY Percocet 5-325 Mg Tablet (Oxycodone/Acetaminophen) 1 Each Tablet 1-2 Tab PO Q4- 6HRS Garlique (Garlic) 5,000 Mcg Tablet 5,000 Mcg PO DAILY Multivitamins (Multivitamin) 1 Each Tablet 1 Tab PO DAILY Krill Oil 1,000 Mg Softgel (Krill/Om3/Dha/Epa/Om6/Lip/Astx) 1 Each Capsule 1 Each PO DAILY Lipitor (Atorvastatin Calcium) 10 Mg Tablet 1 Tab PO QHS Montelukast Sodium Tablet (Montelukast Sodium) 10 Mg Tablet 1 Tab PO HS Finasteride 5 Mg Tablet 2 Tab PO QHS Losartan Potassium 50 Mg Tablet 50 Mg PO QHS Coreg (Carvedilol) 12.5 Mg Tablet 1 Tab PO DAILY Tamsulosin Hcl 0.4 Mg Cap.er.24h 0.8 Mg PO QHS Warfarin Sodium 7.5 Mg Tablet 7.5 Mg PO HS Allergies Allergies: Coded Allergies: No Known Drug Allergies (Unverified , 03/17/16) ROS General: No: Chills, Other (fevers) PSYCHOLOGICAL ROS: No: Anxiety, Depression Eyes: No Blurry vision, No Double vision HEENT: No: Heacaches, Sore Throat Hematological and Lymphatic: YES: Bleeding Problems, No: Blood Clots Respiratory: No: Cough, Shortness of breath Cardiovascular: yes Chest Pain, No Palpitations Gastrointestinal: Yes Other (see hpi) Genitourinary: YES Retention, No Dysuria Musculoskeletal: Yes Joint Pain, Yes Joint Swelling (knee) Neurological: No Confusion, No Numbness/Tingling Skin: No Pruritus, No Rash Physical Exam General: Alert, Oriented X3, Cooperative, No acute distress HEENT: PERRLA, Mucous membr. moist/pink Lungs: Clear to auscultation, Normal air movement Heart: Regular rate, Normal S1, Normal S2, No murmurs Abdomen: Normal bowel sounds, Soft, No tenderness Extremities: No clubbing, No cyanosis Skin: No rashes, No breakdown Neuro: Normal speech, Sensation intact Psych/Mental Status: Mental status NL, Mood NL MUSCULOSKELETAL: No deformity Vitals VITALS Vital Signs Date Time Temp Pulse Resp B/P Pulse Ox O2 Delivery O2 Flow Rate FiO2 05/26/16 11:20 18 99 Room Air 05/26/16 11:00 97.5 82 157/81 97.5 Labs Labs Laboratory Tests Test 05/25/16 15:37 05/25/16 21:20 05/26/16 03:17 05/26/16 08:38 White Blood Count 10.5x10^3/uL (4.0-11.0) 5.5x10^3/uL (4.0-11.0) Red Blood Count 4.32x10^6/uL (4.30-5.70) 3.85x10^6/uL (4.30-5.70) Hemoglobin 12.4g/dL (13.0-17.5) 11.0g/dL (13.0-17.5) Hematocrit 37.8% (39.0-53.0) 33.7% (39.0-53.0) Mean Corpuscular Volume 87fL (79-100) 87fL (79-100) Mean Corpuscular Hemoglobin 29pg (25-35) 29pg (25-35) Mean Corpuscular Hemoglobin Concent 33g/dL (31-37) 33g/dL (31-37) Red Cell Distribution Width 14.8% (11.5-14.5) 14.2% (11.5-14.5) Platelet Count 268x10^3/uL (140-400) 204x10^3/uL (140-400) Neutrophils (%) (Auto) 76% (31-73) Lymphocytes (%) (Auto) 13% (24-48) Monocytes (%) (Auto) 10% (0-9) Eosinophils (%) (Auto) 1% (0-3) Basophils (%) (Auto) 0% (0-3) Neutrophils # (Auto) 7.9x10^3uL (1.8-7.7) Lymphocytes # (Auto) 1.4x10^3/uL (1.0-4.8) Monocytes # (Auto) 1.0x10^3/uL (0.0-1.1) Eosinophils # (Auto) 0.1x10^3/uL (0.0-0.7) Basophils # (Auto) 0.0x10^3/uL (0.0-0.2) Prothrombin Time 24.4SEC (11.7-14.0) 20.7SEC (11.7-14.0) 18.7SEC (11.7-14.0) Prothromb Time International Ratio 2.4 (0.8-1.1) 1.9 (0.8-1.1) 1.7 (0.8-1.1) Sodium Level 138mmol/L (136-145) 143mmol/L (136-145) Potassium Level 3.9mmol/L (3.5-5.1) 3.7mmol/L (3.5-5.1) Chloride Level 101mmol/L (98-107) 103mmol/L (98-107) Carbon Dioxide Level 30mmol/L (21-32) 32mmol/L (21-32) Anion Gap 7 (6-14) 8 (6-14) Blood Urea Nitrogen 19mg/dL (8-26) 19mg/dL (8-26) Creatinine 0.8mg/dL (0.7-1.3) 0.7mg/dL (0.7-1.3) Estimated GFR (Cockcroft-Gault) 95.3 111.2 Glucose Level 103mg/dL (70-99) 92mg/dL (70-99) Calcium Level 9.3mg/dL (8.5-10.1) 9.0mg/dL (8.5-10.1) Total Bilirubin 0.9mg/dL (0.2-1.0) 1.4mg/dL (0.2-1.0) Direct Bilirubin 0.4mg/dL (0.0-0.2) Aspartate Amino Transf (AST/SGOT) 206U/L (15-37) 426U/L (15-37) Alanine Aminotransferase (ALT/SGPT) 137U/L (16-63) 398U/L (16-63) Alkaline Phosphatase 130U/L (46-116) 182U/L (46-116) Troponin I Quantitative < 0.017ng/mL (0.000-0.055) < 0.017ng/mL (0.000-0.055) < 0.017ng/mL (0.000-0.055) ZO-Lxb-E-Type Natriuretic Peptide 851pg/mL (0-124) Total Protein 7.8g/dL (6.4-8.2) 6.6g/dL (6.4-8.2) Albumin 3.4g/dL (3.4-5.0) 3.3g/dL (3.4-5.0) Lipase 168U/L (73-393) BUN/Creatinine Ratio 27 (6-20) Albumin/Globulin Ratio 1.0 (1.0-1.7) Laboratory Tests Test 05/25/16 15:37 05/25/16 21:20 05/26/16 03:17 05/26/16 08:38 White Blood Count 10.5x10^3/uL (4.0-11.0) 5.5x10^3/uL (4.0-11.0) Red Blood Count 4.32x10^6/uL (4.30-5.70) 3.85x10^6/uL (4.30-5.70) Hemoglobin 12.4g/dL (13.0-17.5) 11.0g/dL (13.0-17.5) Hematocrit 37.8% (39.0-53.0) 33.7% (39.0-53.0) Mean Corpuscular Volume 87fL (79-100) 87fL (79-100) Mean Corpuscular Hemoglobin 29pg (25-35) 29pg (25-35) Mean Corpuscular Hemoglobin Concent 33g/dL (31-37) 33g/dL (31-37) Red Cell Distribution Width 14.8% (11.5-14.5) 14.2% (11.5-14.5) Platelet Count 268x10^3/uL (140-400) 204x10^3/uL (140-400) Neutrophils (%) (Auto) 76% (31-73) Lymphocytes (%) (Auto) 13% (24-48) Monocytes (%) (Auto) 10% (0-9) Eosinophils (%) (Auto) 1% (0-3) Basophils (%) (Auto) 0% (0-3) Neutrophils # (Auto) 7.9x10^3uL (1.8-7.7) Lymphocytes # (Auto) 1.4x10^3/uL (1.0-4.8) Monocytes # (Auto) 1.0x10^3/uL (0.0-1.1) Eosinophils # (Auto) 0.1x10^3/uL (0.0-0.7) Basophils # (Auto) 0.0x10^3/uL (0.0-0.2) Prothrombin Time 24.4SEC (11.7-14.0) 20.7SEC (11.7-14.0) 18.7SEC (11.7-14.0) Prothromb Time International Ratio 2.4 (0.8-1.1) 1.9 (0.8-1.1) 1.7 (0.8-1.1) Sodium Level 138mmol/L (136-145) 143mmol/L (136-145) Potassium Level 3.9mmol/L (3.5-5.1) 3.7mmol/L (3.5-5.1) Chloride Level 101mmol/L (98-107) 103mmol/L (98-107) Carbon Dioxide Level 30mmol/L (21-32) 32mmol/L (21-32) Anion Gap 7 (6-14) 8 (6-14) Blood Urea Nitrogen 19mg/dL (8-26) 19mg/dL (8-26) Creatinine 0.8mg/dL (0.7-1.3) 0.7mg/dL (0.7-1.3) Estimated GFR (Cockcroft-Gault) 95.3 111.2 Glucose Level 103mg/dL (70-99) 92mg/dL (70-99) Calcium Level 9.3mg/dL (8.5-10.1) 9.0mg/dL (8.5-10.1) Total Bilirubin 0.9mg/dL (0.2-1.0) 1.4mg/dL (0.2-1.0) Direct Bilirubin 0.4mg/dL (0.0-0.2) Aspartate Amino Transf (AST/SGOT) 206U/L (15-37) 426U/L (15-37) Alanine Aminotransferase (ALT/SGPT) 137U/L (16-63) 398U/L (16-63) Alkaline Phosphatase 130U/L (46-116) 182U/L (46-116) Troponin I Quantitative < 0.017ng/mL (0.000-0.055) < 0.017ng/mL (0.000-0.055) < 0.017ng/mL (0.000-0.055) PQ-Syr-V-Type Natriuretic Peptide 851pg/mL (0-124) Total Protein 7.8g/dL (6.4-8.2) 6.6g/dL (6.4-8.2) Albumin 3.4g/dL (3.4-5.0) 3.3g/dL (3.4-5.0) Lipase 168U/L (73-393) BUN/Creatinine Ratio 27 (6-20) Albumin/Globulin Ratio 1.0 (1.0-1.7) Assessment/Plan Assessment/Plan abdominal pain, atypical chest pain biliary dyskinesia on HIDA, normal filling of biliary system into small bowel coagulopathy, INR now 1.7--needs to be closer to 1 LFTS and bili up today--GI consulted will review with AYAAN Thompson MD 05/26/16 2398: CONSULT Allergies Allergies: Coded Allergies: No Known Drug Allergies (Unverified , 03/17/16) Assessment/Plan Assessment/Plan Pt seen and examined independently by myself; 71 year old male who reported the the hospital due to upper abdominal and lower chest pain. The pain radiated to the RUQ with associated nausea. His initial ER evaluation showed some increase in his LFTs and gallstones. He has a history of Afib and takes coumadin. PMH/PSH/SH/ROS as above, exam: alert, oriented, cooperative, no acute distress, no scleral icterus, lungs clear, heart RR and R, abdomen soft, states he's nontender with palpation currently, prior pain in RUQ, no masses, ext neg for edema or deformity. Sono/PIPIDA reviewed. A/P) Abdominal pain, gallstones, no cystic obstruction, but low EF and abnormal LFTs. Discussed with Dr Reagan; will plan for lap lisset in AM with grams. AGGIE PALENCIA APRN May 26, 2016 11:58 AYAAN HOU MD May 26, 2016 16:25
--- NOTE | 2016-05-26 12:23 | PDOC2 ---
GI CONSULT Reason For Consult: Abd pain, elevated LFTs HPI: HPI: 71 y/o male who reports sudden onset of periumbilical pain yesterday at 1:30 p.m. w/o precipitating events. Pain gradually spread to upper abdomen and chest , prompting ER eval. Lab significant for Hgb 12.4 (now 11), INR 2.4 (now 1.9), bili 0.9 (now 1.4), AST 206 (now 426), ALT 137 (now 398), Alk Phos 130 (now 182) , BNP 851, lipase 168, negative troponins. Abd US showed cholelithiasis w/ tenderness over gallbladder and mild extrahepatic biliary dilatation without a clear distal obstructing lesion. HIDA showed normal filling/emptying w/ EF of 25 %; he had pain w/ Kinevac. Currently, he is pain free. He ate dinner last night w/o issue. No n/v, diarrhea, hematochezia, melena. Some constipation attributed to pain meds w/ recent surgeries; uses Miralax and Dulcolax PRN. H/ o heartburn now only occasionally bothersome, but previously (before retired) was bothersome daily. Perhaps previous EGD years ago. Has had three colonoscopies w/ polyps, says he was due for screening exam in 11/2015. He has a lot of questions. Followed by surgery and cardiology. PMH: PMH: A Fib, CKD, HTN, HLD, GERD, colon polyps, arthritis, BPH, anxiety/depression, right knee surgery, left hip surgery, back surgery, tonsillectomy FH: Family History: Cancer (pancreatic cancer - uncle), DM Social History: Smoke: Quit ALCOHOL: occassional Drugs: None ROS: GEN: Denies fevers, chills, sweats HEENT: Denies blurred vision, sore throat CV: chest pain (resolved) RESP: Denies shortness of air, cough GI: Per HPI : Denies hematuria, dysuria ENDO: Denies weight changes NEURO: Denies confusion, dizziness MSK: left shoulder pain SKIN: Denies jaundice, pruritus VItals: Vitals: Vital Signs Date Time Temp Pulse Resp B/P Pulse Ox O2 Delivery O2 Flow Rate FiO2 05/26/16 11:20 18 99 Room Air 05/26/16 11:00 97.5 82 157/81 97.5 Labs: Labs: Laboratory Tests Test 05/25/16 15:37 05/25/16 21:20 05/26/16 03:17 05/26/16 08:38 White Blood Count 10.5x10^3/uL (4.0-11.0) 5.5x10^3/uL (4.0-11.0) Red Blood Count 4.32x10^6/uL (4.30-5.70) 3.85x10^6/uL (4.30-5.70) Hemoglobin 12.4g/dL (13.0-17.5) 11.0g/dL (13.0-17.5) Hematocrit 37.8% (39.0-53.0) 33.7% (39.0-53.0) Mean Corpuscular Volume 87fL (79-100) 87fL (79-100) Mean Corpuscular Hemoglobin 29pg (25-35) 29pg (25-35) Mean Corpuscular Hemoglobin Concent 33g/dL (31-37) 33g/dL (31-37) Red Cell Distribution Width 14.8% (11.5-14.5) 14.2% (11.5-14.5) Platelet Count 268x10^3/uL (140-400) 204x10^3/uL (140-400) Neutrophils (%) (Auto) 76% (31-73) Lymphocytes (%) (Auto) 13% (24-48) Monocytes (%) (Auto) 10% (0-9) Eosinophils (%) (Auto) 1% (0-3) Basophils (%) (Auto) 0% (0-3) Neutrophils # (Auto) 7.9x10^3uL (1.8-7.7) Lymphocytes # (Auto) 1.4x10^3/uL (1.0-4.8) Monocytes # (Auto) 1.0x10^3/uL (0.0-1.1) Eosinophils # (Auto) 0.1x10^3/uL (0.0-0.7) Basophils # (Auto) 0.0x10^3/uL (0.0-0.2) Prothrombin Time 24.4SEC (11.7-14.0) 20.7SEC (11.7-14.0) 18.7SEC (11.7-14.0) Prothromb Time International Ratio 2.4 (0.8-1.1) 1.9 (0.8-1.1) 1.7 (0.8-1.1) Sodium Level 138mmol/L (136-145) 143mmol/L (136-145) Potassium Level 3.9mmol/L (3.5-5.1) 3.7mmol/L (3.5-5.1) Chloride Level 101mmol/L (98-107) 103mmol/L (98-107) Carbon Dioxide Level 30mmol/L (21-32) 32mmol/L (21-32) Anion Gap 7 (6-14) 8 (6-14) Blood Urea Nitrogen 19mg/dL (8-26) 19mg/dL (8-26) Creatinine 0.8mg/dL (0.7-1.3) 0.7mg/dL (0.7-1.3) Estimated GFR (Cockcroft-Gault) 95.3 111.2 Glucose Level 103mg/dL (70-99) 92mg/dL (70-99) Calcium Level 9.3mg/dL (8.5-10.1) 9.0mg/dL (8.5-10.1) Total Bilirubin 0.9mg/dL (0.2-1.0) 1.4mg/dL (0.2-1.0) Direct Bilirubin 0.4mg/dL (0.0-0.2) Aspartate Amino Transf (AST/SGOT) 206U/L (15-37) 426U/L (15-37) Alanine Aminotransferase (ALT/SGPT) 137U/L (16-63) 398U/L (16-63) Alkaline Phosphatase 130U/L (46-116) 182U/L (46-116) Troponin I Quantitative < 0.017ng/mL (0.000-0.055) < 0.017ng/mL (0.000-0.055) < 0.017ng/mL (0.000-0.055) DV-Gki-F-Type Natriuretic Peptide 851pg/mL (0-124) Total Protein 7.8g/dL (6.4-8.2) 6.6g/dL (6.4-8.2) Albumin 3.4g/dL (3.4-5.0) 3.3g/dL (3.4-5.0) Lipase 168U/L (73-393) BUN/Creatinine Ratio 27 (6-20) Albumin/Globulin Ratio 1.0 (1.0-1.7) Allergies: Coded Allergies: No Known Drug Allergies (Unverified , 03/17/16) Medications: Current Medications Medications (Trade) Dose Ordered Sig/Loertta Route PRN Reason Start Time Stop Time Status Last Admin Dose Admin Multi-Ingredient Mouthwash/Gargle (Gi Cocktail Single Dose) 15 ml 1X ONCE SWSW 05/25/16 16:00 05/25/16 16:01 DC 05/25/16 16:08 Fentanyl Citrate (Fentanyl 2ml Vial) 50 mcg PRN Q2HR PRN IV PAIN 05/25/16 16:15 05/26/16 16:14 05/26/16 08:31 Hydromorphone HCl (Dilaudid) 1 mg 1X ONCE IV 05/25/16 17:15 05/25/16 17:16 DC 05/25/16 17:22 Atorvastatin Calcium (Lipitor) 10 mg QHS PO 05/25/16 21:00 05/26/16 07:46 DC 05/25/16 21:20 Carvedilol (Coreg) 12.5 mg DAILYWBKFT PO 05/26/16 08:00 05/26/16 08:23 Finasteride (Proscar) 5 mg QHS PO 05/25/16 21:00 05/25/16 21:19 Losartan Potassium (Cozaar) 50 mg QHS PO 05/25/16 21:00 05/25/16 21:20 Montelukast Sodium (Singulair) 10 mg HS PO 05/25/16 21:00 05/25/16 21:19 Oxycodone/ Acetaminophen (Percocet 5/325) 1 tab PRN Q4HRS PRN PO SEVERE PAIN 05/25/16 21:00 05/26/16 11:20 Tamsulosin HCl 0.8 mg 0.8 mg QHS PO 05/25/16 21:00 05/25/16 21:19 Sodium Chloride (Iv Sodium Chloride 0.9% 1000ml Bag) 1,000 ml @ 75 mls/hr [id number] IV 05/25/16 21:15 05/26/16 09:07 Lorazepam 0.5 mg 0.5 mg PRN Q6HRS PRN PO ANXIETY / AGITATION 05/26/16 08:00 05/26/16 08:27 DC 05/26/16 08:22 Sincalide/Sodium Chloride (Kinevac/Iv Sodium Chloride 0.9% 50ml) 30 ml @ 120 mls/hr 1X ONCE IV 05/26/16 09:30 05/26/16 09:44 DC 05/26/16 10:44 Imaging: Imaging: CXR IMPRESSION: 1. Hyperinflation. Correlate for air trapping. No confluent infiltrates. Abd US IMPRESSION: 1. Cholelithiasis. There is no clear sonographic evidence of acute cholecystitis , but the corporate analyst notes tenderness over the gallbladder.Correlate with other data to exclude acute cholecystitis. 2. Mild extrahepatic biliary dilatation without a clear distal obstructing lesion. Correlate for cholestasis. CT or MRI could further assess for obstruction if there is persistent concern. 3. Prominent inferior vena cava. Correlate for volume overload or right heart failure. 4. Large benign cyst at the right renal upper pole measuring 8.5 cm. HIDA FINDINGS: There is prompt hepatic clearance of tracer from the blood pool. There is homogeneous distribution throughout the liver. There is normal filling of the gallbladder and normal emptying into the biliary system and small bowel. The gallbladder ejection fraction is 25% (normal >35%). IMPRESSION: 1. Decreased gallbladder ejection fraction suggesting biliary dyskinesia. PE: GEN: NAD, up to chair HEENT: Atraumatic, PERRL LUNGS: CTAB anteriorly HEART: irregularly irregular ABD: NABS, S/ND/NT EXTREMITY: No edema SKIN: No rashes, no jaundice NEURO/PSYCH: A & O 3, anxious OTHER: present A/P: A/P: Abdominal pain - resolved -yesterday; periumbilical spreading upwards to chest Cholelithiasis, extrahepatic biliary ductal dilation -US and HIDA as above Elevated LFTs - worse Heartburn -previously much more bothersome, now occasional symptoms, perhaps EGD years ago CRC screen, h/o colon polyps -reports overdue for screening A Fib on Warfarin -INR 1.7 -- Will check MRCP. JOHNNIE MCKEON May 26, 2016 12:23
[2016-05-26] MEDS: ASPIRIN ENTERIC COATED 81 MG TABLET.DR. PO SCH (13:00)
[2016-05-26] MEDS: LORAZEPAM 2 MG/ML VIAL IV PRN ×2 (14:02→22:10)
[2016-05-26] MEDS: LOSARTAN POTASSIUM 50 MG TABLET. PO SCH (20:10)
[2016-05-26] MEDS: TAMSULOSIN 0.4 MG CAP.ER.24H. PO SCH (20:11)
[2016-05-26] MEDS: FINASTERIDE 5 MG TABLET PO SCH (20:11)
[2016-05-26] MEDS: MONTELUKAST SODIUM 10 MG TABLET. PO SCH (20:11)
[2016-05-26] MEDS: hydrALAZINE 20 MG/ML VIAL. IVP PRN (22:54)
[2016-05-27] VITALS (15 sets, daily range): BP systolic 103–180; BP diastolic 58–107
[2016-05-27 00:46] LABS: INR 1.7 (0.8-1.1); PROTHROMBIN TIME PATIENT 18.9 SEC (11.7-14.0)
[2016-05-27] MEDS ORDERED: PHYTONADIONE 10 MG/ML AMPUL. SQ ONE (01:30)
[2016-05-27] MEDS: OXYCODONE/APAP 5/325 TABLET. PO PRN ×5 (03:47→21:43)
[2016-05-27] MEDS: hydrALAZINE 20 MG/ML VIAL. IVP PRN (04:31)
[2016-05-27] MEDS: LORAZEPAM 2 MG/ML VIAL IV PRN (04:31)
[2016-05-27 06:40] LABS: BASO % 0 % (0-3); EOS % 1 % (0-3); HEMOGLOBIN 11.5 g/dL (13.0-17.5); LYMPH # 0.8 x10^3/uL (1.0-4.8); LYMPH % 12 % (24-48); MEAN CORPUSCULAR HEMOGLOBIN 28 pg (25-35); MEAN CORPUSCULAR HGB CONC 33 g/dL (31-37); MEAN CORPUSCULAR VOLUME 87 fL (79-100); MONO % 8 % (0-9); NEUT % 79 % (31-73); PLATELET COUNT 215 x10^3/uL (140-400); RED BLOOD COUNT 4.03 x10^6/uL (4.30-5.70); RED CELL DISTRIBUTION WIDTH 14.2 % (11.5-14.5); WHITE BLOOD COUNT 7.2 x10^3/uL (4.0-11.0)
[2016-05-27] MEDS ORDERED: ONDANSETRON PF 4 MG/2 ML VIAL. IV PRN (07:00)
[2016-05-27] MEDS ORDERED: HYDROMORPHONE 2 MG/ML VIAL. IV PRN (07:00)
[2016-05-27] MEDS ORDERED: IV RINGERS,LACTATED 1000ML 1,000 ML IV SCH (07:00)
[2016-05-27] MEDS ORDERED: FENTANYL PF 100 MCG/2 ML VIAL. IV PRN ×2 (07:00)
[2016-05-27] MEDS ORDERED: LIDOCAINE 1% 1 ML SYRINGE. ID PRN (07:00)
[2016-05-27] MEDS ORDERED: PROCHLORPERAZINE 10 MG/2 ML VIAL. IV PRN (07:00)
[2016-05-27 07:02] LABS: INR 1.5 (0.8-1.1); PROTHROMBIN TIME PATIENT 17.3 SEC (11.7-14.0)
[2016-05-27] MEDS ORDERED: BUPIVAC MPF-EPI 0.5%-1:200000 30 ML VIAL. ONE (07:14)
[2016-05-27] MEDS ORDERED: SURGICEL HEMOSTAT 4X8 EACH. ONE (07:14)
[2016-05-27] MEDS ORDERED: CEFAZOLIN 2GM PREMIX 50 ML IV ONE ×2 (07:15→07:48)
[2016-05-27] MEDS ORDERED: IOHEXOL 300 MG/ML 50 ML VIAL. ONE (07:15)
[2016-05-27 07:25] LABS: ALBUMIN 3.5 g/dL (3.4-5.0); ALBUMIN/GLOBULIN RATIO 0.7 (1.0-1.7); CALCIUM 9.3 mg/dL (8.5-10.1); CREATININE 0.6 mg/dL (0.7-1.3); GFR 132.8; POTASSIUM 3.4 mmol/L (3.5-5.1); TOTAL BILIRUBIN 1.1 mg/dL (0.2-1.0); TOTAL PROTEIN 8.5 g/dL (6.4-8.2)
[2016-05-27] MEDS ORDERED: DESFLURANE 61 TO 120 MINUTES IH ONE (07:36)
[2016-05-27] MEDS ORDERED: FENTANYL PF 100 MCG/2 ML VIAL. ONE ×2 (07:37→09:10)
[2016-05-27] MEDS ORDERED: NEOSTIGMINE METHYLSULFATE 5 MG/5 ML SYRINGE. ONE (07:37)
[2016-05-27] MEDS ORDERED: MIDAZOLAM HCL 2 MG/2 ML VIAL. ONE ×2 (07:37→09:43)
[2016-05-27] MEDS ORDERED: GLYCOPYRROLATE 1 MG/5 ML VIAL. ONE (07:37)
[2016-05-27] MEDS ORDERED: ONDANSETRON PF 4 MG/2 ML VIAL. ONE (07:38)
[2016-05-27] MEDS ORDERED: ROCURONIUM 50 MG/5 ML VIAL. ONE (07:38)
[2016-05-27] MEDS ORDERED: DEXAMETHASONE SOD PHOS 20 MG/5 ML VIAL. ONE (07:38)
[2016-05-27] MEDS: CARVEDILOL 12.5 MG TABLET PO SCH (07:38)
[2016-05-27] MEDS ORDERED: LIDOCAINE 2% 100 MG/5 ML DISP.SYRIN. ONE (07:38)
[2016-05-27] MEDS ORDERED: PROPOFOL 20 ML IV ONE (07:38)
--- NOTE | 2016-05-27 07:54 | PDOC ---
[employer]AF[employer]ERICASL[employer]ER 05/27/16 0754: IM PROGRESS NOTES- Subjective Subjective in pre op holding Objective Objective no distress, anxious Vitals Vital Signs Date Time Temp Pulse Resp B/P Pulse Ox O2 Delivery O2 Flow Rate FiO2 05/27/16 07:38 102 170/98 05/27/16 07:24 98.2 18 96 Room Air 98.2 Input & Output Intake and Output 05/27/16 07:00 Intake Total 979 ml Output Total 650 ml Balance 329 ml Intake Oral 660 ml Blood Product IV Normal Saline Flush 319 ml Output Urine Total 650 ml # Voids 1 Physical Exam Physical Exam General appearance - alert, anxious, in mild distress Mental Status - alert, oriented to person, place, and time, anxious Head - normal Chest - clear to auscultation, no wheezes, rales or rhonchi, symmetric air entry Heart - S1 and S2 normal Abdomen - soft, + tender RUQ, BS +, obese Neurological - no acute focal neurological deficit noted Musculoskeletal - R hip pain with movement, pain bilateral wrist, Pain with decreased ROM L shoulder Extremities - no pedal edema Skin - warm and dry Labs Laboratory Tests Test 05/25/16 15:37 05/25/16 21:20 05/26/16 03:17 05/26/16 08:38 White Blood Count 10.5x10^3/uL (4.0-11.0) 5.5x10^3/uL (4.0-11.0) Red Blood Count 4.32x10^6/uL (4.30-5.70) 3.85x10^6/uL (4.30-5.70) Hemoglobin 12.4g/dL (13.0-17.5) 11.0g/dL (13.0-17.5) Hematocrit 37.8% (39.0-53.0) 33.7% (39.0-53.0) Mean Corpuscular Volume 87fL (79-100) 87fL (79-100) Mean Corpuscular Hemoglobin 29pg (25-35) 29pg (25-35) Mean Corpuscular Hemoglobin Concent 33g/dL (31-37) 33g/dL (31-37) Red Cell Distribution Width 14.8% (11.5-14.5) 14.2% (11.5-14.5) Platelet Count 268x10^3/uL (140-400) 204x10^3/uL (140-400) Neutrophils (%) (Auto) 76% (31-73) Lymphocytes (%) (Auto) 13% (24-48) Monocytes (%) (Auto) 10% (0-9) Eosinophils (%) (Auto) 1% (0-3) Basophils (%) (Auto) 0% (0-3) Neutrophils # (Auto) 7.9x10^3uL (1.8-7.7) Lymphocytes # (Auto) 1.4x10^3/uL (1.0-4.8) Monocytes # (Auto) 1.0x10^3/uL (0.0-1.1) Eosinophils # (Auto) 0.1x10^3/uL (0.0-0.7) Basophils # (Auto) 0.0x10^3/uL (0.0-0.2) Prothrombin Time 24.4SEC (11.7-14.0) 20.7SEC (11.7-14.0) 18.7SEC (11.7-14.0) Prothromb Time International Ratio 2.4 (0.8-1.1) 1.9 (0.8-1.1) 1.7 (0.8-1.1) Sodium Level 138mmol/L (136-145) 143mmol/L (136-145) Potassium Level 3.9mmol/L (3.5-5.1) 3.7mmol/L (3.5-5.1) Chloride Level 101mmol/L (98-107) 103mmol/L (98-107) Carbon Dioxide Level 30mmol/L (21-32) 32mmol/L (21-32) Anion Gap 7 (6-14) 8 (6-14) Blood Urea Nitrogen 19mg/dL (8-26) 19mg/dL (8-26) Creatinine 0.8mg/dL (0.7-1.3) 0.7mg/dL (0.7-1.3) Estimated GFR (Cockcroft-Gault) 95.3 111.2 Glucose Level 103mg/dL (70-99) 92mg/dL (70-99) Calcium Level 9.3mg/dL (8.5-10.1) 9.0mg/dL (8.5-10.1) Total Bilirubin 0.9mg/dL (0.2-1.0) 1.4mg/dL (0.2-1.0) Direct Bilirubin 0.4mg/dL (0.0-0.2) Aspartate Amino Transf (AST/SGOT) 206U/L (15-37) 426U/L (15-37) Alanine Aminotransferase (ALT/SGPT) 137U/L (16-63) 398U/L (16-63) Alkaline Phosphatase 130U/L (46-116) 182U/L (46-116) Troponin I Quantitative < 0.017ng/mL (0.000-0.055) < 0.017ng/mL (0.000-0.055) < 0.017ng/mL (0.000-0.055) ZX-[id number]-C-Type Natriuretic Peptide 851pg/mL (0-124) Total Protein 7.8g/dL (6.4-8.2) 6.6g/dL (6.4-8.2) Albumin 3.4g/dL (3.4-5.0) 3.3g/dL (3.4-5.0) Lipase 168U/L (73-393) BUN/Creatinine Ratio 27 (6-20) Albumin/Globulin Ratio 1.0 (1.0-1.7) Test 05/27/16 00:01 05/27/16 06:25 Prothrombin Time 18.9SEC (11.7-14.0) 17.3SEC (11.7-14.0) Prothromb Time International Ratio 1.7 (0.8-1.1) 1.5 (0.8-1.1) White Blood Count 7.2x10^3/uL (4.0-11.0) Red Blood Count 4.03x10^6/uL (4.30-5.70) Hemoglobin 11.5g/dL (13.0-17.5) Hematocrit 35.0% (39.0-53.0) Mean Corpuscular Volume 87fL (79-100) Mean Corpuscular Hemoglobin 28pg (25-35) Mean Corpuscular Hemoglobin Concent 33g/dL (31-37) Red Cell Distribution Width 14.2% (11.5-14.5) Platelet Count 215x10^3/uL (140-400) Neutrophils (%) (Auto) 79% (31-73) Lymphocytes (%) (Auto) 12% (24-48) Monocytes (%) (Auto) 8% (0-9) Eosinophils (%) (Auto) 1% (0-3) Basophils (%) (Auto) 0% (0-3) Neutrophils # (Auto) 5.7x10^3uL (1.8-7.7) Lymphocytes # (Auto) 0.8x10^3/uL (1.0-4.8) Monocytes # (Auto) 0.6x10^3/uL (0.0-1.1) Eosinophils # (Auto) 0.1x10^3/uL (0.0-0.7) Basophils # (Auto) 0.0x10^3/uL (0.0-0.2) Sodium Level 139mmol/L (136-145) Potassium Level 3.4mmol/L (3.5-5.1) Chloride Level 101mmol/L (98-107) Carbon Dioxide Level 27mmol/L (21-32) Anion Gap 11 (6-14) Blood Urea Nitrogen 12mg/dL (8-26) Creatinine 0.6mg/dL (0.7-1.3) Estimated GFR (Cockcroft-Gault) 132.8 BUN/Creatinine Ratio 20 (6-20) Glucose Level 96mg/dL (70-99) Calcium Level 9.3mg/dL (8.5-10.1) Total Bilirubin 1.1mg/dL (0.2-1.0) Aspartate Amino Transf (AST/SGOT) 133U/L (15-37) Alanine Aminotransferase (ALT/SGPT) 237U/L (16-63) Alkaline Phosphatase 151U/L (46-116) Total Protein 8.5g/dL (6.4-8.2) Albumin 3.5g/dL (3.4-5.0) Albumin/Globulin Ratio 0.7 (1.0-1.7) Laboratory Tests Test 05/26/16 08:38 05/27/16 00:01 05/27/16 06:25 Prothrombin Time 18.7SEC (11.7-14.0) 18.9SEC (11.7-14.0) 17.3SEC (11.7-14.0) Prothromb Time International Ratio 1.7 (0.8-1.1) 1.7 (0.8-1.1) 1.5 (0.8-1.1) White Blood Count 7.2x10^3/uL (4.0-11.0) Red Blood Count 4.03x10^6/uL (4.30-5.70) Hemoglobin 11.5g/dL (13.0-17.5) Hematocrit 35.0% (39.0-53.0) Mean Corpuscular Volume 87fL (79-100) Mean Corpuscular Hemoglobin 28pg (25-35) Mean Corpuscular Hemoglobin Concent 33g/dL (31-37) Red Cell Distribution Width 14.2% (11.5-14.5) Platelet Count 215x10^3/uL (140-400) Neutrophils (%) (Auto) 79% (31-73) Lymphocytes (%) (Auto) 12% (24-48) Monocytes (%) (Auto) 8% (0-9) Eosinophils (%) (Auto) 1% (0-3) Basophils (%) (Auto) 0% (0-3) Neutrophils # (Auto) 5.7x10^3uL (1.8-7.7) Lymphocytes # (Auto) 0.8x10^3/uL (1.0-4.8) Monocytes # (Auto) 0.6x10^3/uL (0.0-1.1) Eosinophils # (Auto) 0.1x10^3/uL (0.0-0.7) Basophils # (Auto) 0.0x10^3/uL (0.0-0.2) Sodium Level 139mmol/L (136-145) Potassium Level 3.4mmol/L (3.5-5.1) Chloride Level 101mmol/L (98-107) Carbon Dioxide Level 27mmol/L (21-32) Anion Gap 11 (6-14) Blood Urea Nitrogen 12mg/dL (8-26) Creatinine 0.6mg/dL (0.7-1.3) Estimated GFR (Cockcroft-Gault) 132.8 BUN/Creatinine Ratio 20 (6-20) Glucose Level 96mg/dL (70-99) Calcium Level 9.3mg/dL (8.5-10.1) Total Bilirubin 1.1mg/dL (0.2-1.0) Aspartate Amino Transf (AST/SGOT) 133U/L (15-37) Alanine Aminotransferase (ALT/SGPT) 237U/L (16-63) Alkaline Phosphatase 151U/L (46-116) Total Protein 8.5g/dL (6.4-8.2) Albumin 3.5g/dL (3.4-5.0) Albumin/Globulin Ratio 0.7 (1.0-1.7) Meds Current Medications Aspirin (Ecotrin) 81 mg DAILYWBKFT PO ; Start 05/26/16 at 13:00 Bupivacaine HCl/ Epinephrine Bitart (Sensorcain-Mpf Epi 0.5%-1:[id number]) 30 ml STK -MED ONCE .ROUTE ; Start 05/27/16 at 07:14; Stop 05/27/16 at 07:15; Status DC Carvedilol (Coreg) 12.5 mg DAILYWBKFT PO Last administered on 05/27/16t 07:38; Start 05/26/16 at 08:00 Cellulose 1 each STK-MED ONCE .ROUTE ; Start 05/27/16 at 07:14; Stop 05/27/16 at 07:15; Status DC Desflurane (Suprane) 60 ml STK-MED ONCE IH ; Start 05/27/16 at 07:36; Stop 05/27 at 07:37; Status DC Dexamethasone Sodium Phosphate (Decadron) 20 mg STK-MED ONCE .ROUTE ; Start at 07:38; Stop 05/27/16 at 07:39; Status DC Fentanyl Citrate (Fentanyl 2ml Vial) 25 mcg PRN Q5MIN PRN IV MILD PAIN; Start 05/27/16 at 07:00; Stop 05/28/16 at 06:59 Fentanyl Citrate (Fentanyl 2ml Vial) 50 mcg PRN Q5MIN PRN IV MODERATE PAIN; Start 05/27/16 at 07:00; Stop 05/28/16 at 06:59 Fentanyl Citrate (Fentanyl 2ml Vial) 100 mcg STK-MED ONCE .ROUTE ; Start at 07:37; Stop 05/27/16 at 07:38; Status DC Glycopyrrolate (Robinul) 1 mg STK-MED ONCE .ROUTE ; Start 05/27/16 at 07:37; Stop 05/27/16 at 07:38; Status DC Hydralazine HCl (Apresoline) 10 mg PRN Q4HRS PRN IVP ELEVATED BP, SEE COMMENTS Last administered on 05/27/16 04:31; Start 05/26/16 at 08:00 Hydromorphone HCl (Dilaudid) 0.5 mg PRN Q10MIN PRN IV SEVERE PAIN, Second choice; Start 05/27/16 at 07:00; Stop 05/28/16 at 06:59 Iohexol (Omnipaque 300 Mg/ml) 50 ml STK-MED ONCE .ROUTE ; Start 05/27/16 at 07: 15; Stop 05/27/16 at 07:16; Status DC Lactated Ringer's (Iv Lactated Ringers) 1,000 ml @ 30 mls/hr Q24H IV ; Start at 07:00; Stop 05/27/16 at 18:59 Lidocaine HCl 2 ml 1X PRN PRN ID IV START; Start 05/27/16 at 07:00; Stop at 06:59 Lidocaine HCl 100 mg STK-MED ONCE .ROUTE ; Start 05/27/16 at 07:38; Stop at 07:39; Status DC Lorazepam (Ativan) 0.5 mg PRN Q6HRS PRN PO ANXIETY / AGITATION Last administered on 05/26/16 08:22; Start 05/26/16 at 08:00; Stop 05/26/16 at 08:27 ; Status DC Lorazepam 0.5 mg 0.5 mg PRN Q6HRS PRN IV ANXIETY / AGITATION Last administered on 05/27/16 04:31; Start 05/26/16 at 08:30 Midazolam HCl (Versed) 2 mg STK-MED ONCE .ROUTE ; Start 05/27/16 at 07:37; Stop 05/27/16 at 07:38; Status DC Morphine Sulfate 1 mg 1 mg PRN Q10MIN PRN IV SEVERE PAIN; Start 05/27/16 at 07: 00; Stop 05/28/16 at 06:59 Multivitamins/ Calcium (Thera M Plus) 1 tab DAILY PO ; Start 05/26/16 at 09:00 Neostigmine Methylsulfate 5 mg STK-MED ONCE .ROUTE ; Start 05/27/16 at 07:37; Stop 05/27/16 at 07:38; Status DC Non-Formulary Medication 1 each DAILY PO ; Start 05/26/16 at 09:00; Status UNV Non-Formulary Medication 5,000 mcg DAILY PO ; Start 05/26/16 at 09:00; Status UNV Ondansetron HCl (Zofran) 4 mg PRN Q6HRS PRN IV Nausea; Start 05/27/16 at 07:00 ; Stop 05/28/16 at 06:59 Ondansetron HCl (Zofran) 4 mg STK-MED ONCE .ROUTE ; Start 05/27/16 at 07:38; Stop 05/27/16 at 07:39; Status DC Phytonadione (Vitamin K) 10 mg 1X ONCE SQ Last administered on 05/27/16t 01:48 ; Start 05/27/16 at 01:30; Stop 05/27/16 at 01:31; Status DC Prochlorperazine Edisylate (Compazine) 5 mg PACU PRN PRN IV NAUSEA; Start 05/27 at 07:00; Stop 05/28/16 at 06:59 Propofol (Diprivan) 20 ml @ As Directed STK-MED ONCE IV ; Start 05/27/16 at 07: 38; Stop 05/27/16 at 07:39; Status DC Rocuronium Attapulgus 50 mg 50 mg STK-MED ONCE .ROUTE ; Start 05/27/16 at 07:38; Stop 05/27/16 at 07:39; Status DC Sincalide/Sodium Chloride (Kinevac/Iv Sodium Chloride 0.9% 50ml) 30 ml @ 120 mls/hr 1X ONCE IV Last administered on 05/26/16t 10:44; Start 05/26/16 at 09: 30; Stop 05/26/16 at 09:44; Status DC Vitamin D (Vitamin D3) 1,000 unit DAILY PO ; Start 05/26/16 at 09:00 Assessment Assessment IMPRESSION: 1. acute RUQ abdominal pain cholelithiasis with transaminitis 2. chest pain r/t RUQ pain 3. malignant HTN 4. anxiety 5. hyperlipidemia 6. chronic LBP with h/o DDD LS 7. anemia chronic disease 8. anticoagulation therapy post R TKR 9. bilateral wrist pain with weakness 10. R hip pain OA 11. obstructive BPH PLAN: chest pain Rowena scan MPI 02/2016 low prob cardiac event CE negative cardiology consult secondary to cholelithiasis/GB disease RUQ pain/cholelithiasis surgical consult GI consult HIDA low ejection fraction lap choley 05/27 transaminitis Admit AST 206 05/27 133 ALT 130 237 AP 130 151 Direct bili 1.1 IV NS 75cc/hr improving anticoagulation post TKR Admit INR 2.4 05/27 1.7 vitamin K 10mg, FFP x 2, repeat INR 1.5 pharmacy to manage post op malignant HTN give oral meds this morning with sip water treat anxiety-Ativan 0.5mg IV q6hr prn hydralazine 10mg IV prn q6hr improving obstructive BPH will need resumption medications -sx are severe w/o meds DVT/GI prophylaxis SCD/Estuardo Pepcid hypokalemia 05/27 K3.4-in pre op holding recheck in am 05/28 For further plan of care, please refer to the orders. Plan Plan For more details regarding further plans, please refer to the orders. BASSAM SMITH MD 05/27/16 0950: IM PROGRESS NOTES- Assessment Assessment Seen in recovery room. Confused.Trying to get out of bed. D/w . The patient was seen and examined by me. Chart reviewed and plan of care formulated. Discussed with, reviewed and agree with [facility]'s notes, plan of care and orders with modifications as necessary. For more details regarding further plans, please refer to the orders. SLICK RUTHERFORD APRN May 27, 2016 07:54 BASSAM SMITH MD May 27, 2016 09:50
[2016-05-27] MEDS: ASPIRIN ENTERIC COATED 81 MG TABLET.DR. PO SCH (08:00)
[2016-05-27] MEDS ORDERED: PHENYLEPHRINE in 0.9% NACL PF 1 MG/10 ML DISP.SYRIN. IV ONE (08:17)
[2016-05-27] MEDS ORDERED: EPHEDRINE PF IN SALINE 50 MG/5 ML DISP.SYRIN. IV ONE (08:23)
[2016-05-27] MEDS ORDERED: GLUCAGON,HUMAN RECOMBINANT 1 MG/ML VIAL. ONE (08:42)
[2016-05-27] MEDS: CHOLECALCIFEROL (VITAMIN D3) 1,000 UNIT TABLET PO SCH (09:00)
[2016-05-27] MEDS: FAMOTIDINE 20 MG/2 ML VIAL IVP SCH ×2 (09:00→21:38)
[2016-05-27] MEDS: MULTIVITAMIN with MINERAL TABLET. PO SCH (09:00)
--- NOTE | 2016-05-27 09:03 | RAD ---
Intraoperative cholangiogram, 05/27/2016: History: Cholecystectomy 5 spot films from surgery are presented for review. Contrast has been injected into the cystic duct remnant. 16 seconds of fluoroscopy time was utilized. There is a filling defect in the cystic duct remnant. No definite filling defect is seen in the common bile duct, although the distal duct at the ampulla is not completely opacified. Contrast extension into the duodenum is not evident. The incompletely opacified intrahepatic ducts are unremarkable. IMPRESSION: 1. Filling defect in the cystic duct remnant suggesting a retained calculus or debris versus an air bubble. 2. Lack of extension of contrast into the duodenum may be due to ampullary spasm, although a stricture or occult calculus cannot be excluded.
[2016-05-27] MEDS: MORPHINE SULFATE 2 MG/ML DISP.SYRIN. IV PRN ×2 (09:45→09:58)
--- NOTE | 2016-05-27 09:49 | PDOC4 ---
Operative Note Operative Note Operative Note: Preoperative Diagnosis: Calculous cholecystitis Postoperative Diagnosis: Same Procedure: Laparoscopic cholecystectomy with intraoperative cholangiogram Surgeons: Jimenez Asst: Jeanette WEBSTER Anesthesia: Gen. Estimated Blood Loss: 20 mL Specimen: Gallbladder to pathology Drains: 19 Fr GIOVANNA Complications: None Indications: The patient is a 71year old male who is been experiencing upper abdominal pain. His evaluation showed gallstones and concern for potential choledocholithiasis. Surgical treatment was offered by means of a laparoscopic cholecystectomy. The risks of surgery were discussed which include bleeding, infection, bile duct injury, bile leak, pain, the potential for additional surgeries or procedures. The patient understands and would like to proceed. Description: The patient was taken to the operating room and laid supine on the operating table. General anesthesia was performed. The abdomen was prepped with ChloraPrep and draped in a standard surgical fashion. A small infraumbilical incision was made with a scalpel. The Veress needle was then inserted and a pneumoperitoneum was then created. A 5 mm trocar was then inserted and the laparoscope was introduced. In the upper midabdomen a 5 mm trocar was inserted and in the right upper quadrant two 2.3 mm mini lap graspers were inserted. The gallbladder was retracted cephalad. The cystic duct was dissected free from surrounding tissues. One clip was placed on the duct near the gallbladder junction. An opening was made in the duct and a cholangiocatheter placed within and secured with a clip. Using contrast dye and fluoroscopy an intraoperative cholangiogram was performed. The main bile ducts generally appeared normal. However there was minimal passage of contrast into the duodenum. 1mg of glucagon was administered and allowed to circulate. Despite this there continued to be minimal contrast passage. The appearance seemed consistent with potential sphincter spasm vs a very small stone or debris. However a clear filling defect was not easily seen. The clip and catheter were then withdrawn. Three clips were placed on the cystic duct and it was divided. The cystic artery was then identified, dissected free, doubly clipped and divided as well. The gallbladder was then mobilized away from the liver with cautery. The umbilical 5 millimeter trocar was exchanged for an 11 millimeter trocar. One of the 2.3 mm graspers was also exchanged for a 5 mm trocar. A 19 Fr round drain was placed in the gallbladder fossa and exited at the 5 mm right lateral abdomen trocar site. This was secured to the skin with a 2-0 silk suture. The gallbladder was then placed in an endoscopic bag and extracted at the umbilical trocar site. The fascia there was closed with 0 Vicryl sutures. All blood and irrigation fluid was suctioned and hemostasis was good. The remaining ports were removed and the pneumoperitoneum was relieved. The skin incisions were injected with half percent Marcaine with epinephrine, and all were closed using 4-0 Monocryl suture. Steri-Strips and dressings were then applied. The patient tolerated the procedure well and was sent to the recovery room in stable condition. At the end of the case all counts were correct. AYAAN HOU MD May 27, 2016 09:49
[2016-05-27] MEDS ORDERED: HYDROMORPHONE 2 MG/ML VIAL. IV ONE (10:00)
[2016-05-27] MEDS ORDERED: MIDAZOLAM HCL 2 MG/2 ML VIAL. IV ONE (10:00)
--- NOTE | 2016-05-27 10:39 | PDOC ---
G I PROGRESS NOTE Subjective Not seen. Not out of PACU yet. Objective Case discussed with Dr. Gaona. Physical Exam No PE. Review of Relevant I have reviewed the following items shawn (where applicable) has been applied. Labs Laboratory Tests Test 05/25/16 15:37 05/25/16 21:20 05/26/16 03:17 05/26/16 08:38 White Blood Count 10.5x10^3/uL (4.0-11.0) 5.5x10^3/uL (4.0-11.0) Red Blood Count 4.32x10^6/uL (4.30-5.70) 3.85x10^6/uL (4.30-5.70) Hemoglobin 12.4g/dL (13.0-17.5) 11.0g/dL (13.0-17.5) Hematocrit 37.8% (39.0-53.0) 33.7% (39.0-53.0) Mean Corpuscular Volume 87fL (79-100) 87fL (79-100) Mean Corpuscular Hemoglobin 29pg (25-35) 29pg (25-35) Mean Corpuscular Hemoglobin Concent 33g/dL (31-37) 33g/dL (31-37) Red Cell Distribution Width 14.8% (11.5-14.5) 14.2% (11.5-14.5) Platelet Count 268x10^3/uL (140-400) 204x10^3/uL (140-400) Neutrophils (%) (Auto) 76% (31-73) Lymphocytes (%) (Auto) 13% (24-48) Monocytes (%) (Auto) 10% (0-9) Eosinophils (%) (Auto) 1% (0-3) Basophils (%) (Auto) 0% (0-3) Neutrophils # (Auto) 7.9x10^3uL (1.8-7.7) Lymphocytes # (Auto) 1.4x10^3/uL (1.0-4.8) Monocytes # (Auto) 1.0x10^3/uL (0.0-1.1) Eosinophils # (Auto) 0.1x10^3/uL (0.0-0.7) Basophils # (Auto) 0.0x10^3/uL (0.0-0.2) Prothrombin Time 24.4SEC (11.7-14.0) 20.7SEC (11.7-14.0) 18.7SEC (11.7-14.0) Prothromb Time International Ratio 2.4 (0.8-1.1) 1.9 (0.8-1.1) 1.7 (0.8-1.1) Sodium Level 138mmol/L (136-145) 143mmol/L (136-145) Potassium Level 3.9mmol/L (3.5-5.1) 3.7mmol/L (3.5-5.1) Chloride Level 101mmol/L (98-107) 103mmol/L (98-107) Carbon Dioxide Level 30mmol/L (21-32) 32mmol/L (21-32) Anion Gap 7 (6-14) 8 (6-14) Blood Urea Nitrogen 19mg/dL (8-26) 19mg/dL (8-26) Creatinine 0.8mg/dL (0.7-1.3) 0.7mg/dL (0.7-1.3) Estimated GFR (Cockcroft-Gault) 95.3 111.2 Glucose Level 103mg/dL (70-99) 92mg/dL (70-99) Calcium Level 9.3mg/dL (8.5-10.1) 9.0mg/dL (8.5-10.1) Total Bilirubin 0.9mg/dL (0.2-1.0) 1.4mg/dL (0.2-1.0) Direct Bilirubin 0.4mg/dL (0.0-0.2) Aspartate Amino Transf (AST/SGOT) 206U/L (15-37) 426U/L (15-37) Alanine Aminotransferase (ALT/SGPT) 137U/L (16-63) 398U/L (16-63) Alkaline Phosphatase 130U/L (46-116) 182U/L (46-116) Troponin I Quantitative < 0.017ng/mL (0.000-0.055) < 0.017ng/mL (0.000-0.055) < 0.017ng/mL (0.000-0.055) GJ-Oga-F-Type Natriuretic Peptide 851pg/mL (0-124) Total Protein 7.8g/dL (6.4-8.2) 6.6g/dL (6.4-8.2) Albumin 3.4g/dL (3.4-5.0) 3.3g/dL (3.4-5.0) Lipase 168U/L (73-393) BUN/Creatinine Ratio 27 (6-20) Albumin/Globulin Ratio 1.0 (1.0-1.7) Test 05/27/16 00:01 05/27/16 06:25 Prothrombin Time 18.9SEC (11.7-14.0) 17.3SEC (11.7-14.0) Prothromb Time International Ratio 1.7 (0.8-1.1) 1.5 (0.8-1.1) White Blood Count 7.2x10^3/uL (4.0-11.0) Red Blood Count 4.03x10^6/uL (4.30-5.70) Hemoglobin 11.5g/dL (13.0-17.5) Hematocrit 35.0% (39.0-53.0) Mean Corpuscular Volume 87fL (79-100) Mean Corpuscular Hemoglobin 28pg (25-35) Mean Corpuscular Hemoglobin Concent 33g/dL (31-37) Red Cell Distribution Width 14.2% (11.5-14.5) Platelet Count 215x10^3/uL (140-400) Neutrophils (%) (Auto) 79% (31-73) Lymphocytes (%) (Auto) 12% (24-48) Monocytes (%) (Auto) 8% (0-9) Eosinophils (%) (Auto) 1% (0-3) Basophils (%) (Auto) 0% (0-3) Neutrophils # (Auto) 5.7x10^3uL (1.8-7.7) Lymphocytes # (Auto) 0.8x10^3/uL (1.0-4.8) Monocytes # (Auto) 0.6x10^3/uL (0.0-1.1) Eosinophils # (Auto) 0.1x10^3/uL (0.0-0.7) Basophils # (Auto) 0.0x10^3/uL (0.0-0.2) Sodium Level 139mmol/L (136-145) Potassium Level 3.4mmol/L (3.5-5.1) Chloride Level 101mmol/L (98-107) Carbon Dioxide Level 27mmol/L (21-32) Anion Gap 11 (6-14) Blood Urea Nitrogen 12mg/dL (8-26) Creatinine 0.6mg/dL (0.7-1.3) Estimated GFR (Cockcroft-Gault) 132.8 BUN/Creatinine Ratio 20 (6-20) Glucose Level 96mg/dL (70-99) Calcium Level 9.3mg/dL (8.5-10.1) Total Bilirubin 1.1mg/dL (0.2-1.0) Aspartate Amino Transf (AST/SGOT) 133U/L (15-37) Alanine Aminotransferase (ALT/SGPT) 237U/L (16-63) Alkaline Phosphatase 151U/L (46-116) Total Protein 8.5g/dL (6.4-8.2) Albumin 3.5g/dL (3.4-5.0) Albumin/Globulin Ratio 0.7 (1.0-1.7) Laboratory Tests Test 05/27/16 00:01 05/27/16 06:25 Prothrombin Time 18.9SEC (11.7-14.0) 17.3SEC (11.7-14.0) Prothromb Time International Ratio 1.7 (0.8-1.1) 1.5 (0.8-1.1) White Blood Count 7.2x10^3/uL (4.0-11.0) Red Blood Count 4.03x10^6/uL (4.30-5.70) Hemoglobin 11.5g/dL (13.0-17.5) Hematocrit 35.0% (39.0-53.0) Mean Corpuscular Volume 87fL (79-100) Mean Corpuscular Hemoglobin 28pg (25-35) Mean Corpuscular Hemoglobin Concent 33g/dL (31-37) Red Cell Distribution Width 14.2% (11.5-14.5) Platelet Count 215x10^3/uL (140-400) Neutrophils (%) (Auto) 79% (31-73) Lymphocytes (%) (Auto) 12% (24-48) Monocytes (%) (Auto) 8% (0-9) Eosinophils (%) (Auto) 1% (0-3) Basophils (%) (Auto) 0% (0-3) Neutrophils # (Auto) 5.7x10^3uL (1.8-7.7) Lymphocytes # (Auto) 0.8x10^3/uL (1.0-4.8) Monocytes # (Auto) 0.6x10^3/uL (0.0-1.1) Eosinophils # (Auto) 0.1x10^3/uL (0.0-0.7) Basophils # (Auto) 0.0x10^3/uL (0.0-0.2) Sodium Level 139mmol/L (136-145) Potassium Level 3.4mmol/L (3.5-5.1) Chloride Level 101mmol/L (98-107) Carbon Dioxide Level 27mmol/L (21-32) Anion Gap 11 (6-14) Blood Urea Nitrogen 12mg/dL (8-26) Creatinine 0.6mg/dL (0.7-1.3) Estimated GFR (Cockcroft-Gault) 132.8 BUN/Creatinine Ratio 20 (6-20) Glucose Level 96mg/dL (70-99) Calcium Level 9.3mg/dL (8.5-10.1) Total Bilirubin 1.1mg/dL (0.2-1.0) Aspartate Amino Transf (AST/SGOT) 133U/L (15-37) Alanine Aminotransferase (ALT/SGPT) 237U/L (16-63) Alkaline Phosphatase 151U/L (46-116) Total Protein 8.5g/dL (6.4-8.2) Albumin 3.5g/dL (3.4-5.0) Albumin/Globulin Ratio 0.7 (1.0-1.7) LFT's better this morning. Medications Current Medications Multi-Ingredient Mouthwash/Gargle (Gi Cocktail Single Dose) 15 ml 1X ONCE SWSW Last administered on 05/25/16t 16:08; Start 05/25/16 at 16:00; Stop 05/25/16 at 16:01; Status DC Ondansetron HCl (Zofran) 4 mg PRN Q8HRS PRN IV NAUSEA/VOMITING; Start 05/25/16 at 16:15; Stop 05/26/16 at 16:14; Status DC Fentanyl Citrate 50 mcg 50 mcg PRN Q2HR PRN IV PAIN Last administered on 08:31; Start 05/25/16 at 16:15; Stop 05/26/16 at 16:14; Status DC Sodium Chloride (Iv Sodium Chloride 0.9% 1000ml Bag) 1,000 ml @ 100 mls/hr Q10H IV ; Start 05/25/16 at 16:06; Stop 05/25/16 at 21:08; Status DC Acetaminophen (Tylenol) 650 mg PRN Q4HRS PRN PO FEVER; Start 05/25/16 at 16:15 ; Stop 05/26/16 at 07:46; Status DC Nitroglycerin (Nitrostat) 0.4 mg PRN Q5MIN PRN SL CHEST PAIN; Start 05/25/16 at 16:15; Stop 05/26/16 at 16:14; Status DC Hydromorphone HCl (Dilaudid) 1 mg 1X ONCE IV Last administered on 05/25/16 17 :22; Start 05/25/16 at 17:15; Stop 05/25/16 at 17:16; Status DC Atorvastatin Calcium (Lipitor) 10 mg QHS PO Last administered on 05/25/16 21: 20; Start 05/25/16 at 21:00; Stop 05/26/16 at 07:46; Status DC Carvedilol (Coreg) 12.5 mg DAILYWBKFT PO Last administered on 05/27/16 07:38; Start 05/26/16 at 08:00 Vitamin D (Vitamin D3) 1,000 unit DAILY PO ; Start 05/26/16 at 09:00 Finasteride (Proscar) 5 mg QHS PO Last administered on 05/26/16 20:11; Start 05/25/16 at 21:00 Losartan Potassium (Cozaar) 50 mg QHS PO Last administered on 05/26/16 20:10; Start 05/25/16 at 21:00 Montelukast Sodium (Singulair) 10 mg HS PO Last administered on 05/26/16 20:11 ; Start 05/25/16 at 21:00 Oxycodone/ Acetaminophen (Percocet 5/325) 1 tab PRN Q4HRS PRN PO SEVERE PAIN Last administered on 05/27/16 03:47; Start 05/25/16 at 21:00; Stop 05/27/16 at 09:43; Status DC Tamsulosin HCl (Flomax) 0.8 mg QHS PO Last administered on 05/26/16 20:11; Start 05/25/16 at 21:00 Non-Formulary Medication 5,000 mcg DAILY PO ; Start 05/26/16 at 09:00; Status UNV Non-Formulary Medication 1 each DAILY PO ; Start 05/26/16 at 09:00; Status UNV Multivitamins/ Calcium 1 tab 1 tab DAILY PO ; Start 05/26/16 at 09:00 Sodium Chloride (Iv Sodium Chloride 0.9% 1000ml Bag) 1,000 ml @ 75 mls/hr [id number] IV Last administered on 05/26/16 09:07; Start 05/25/16 at 21:15 Acetaminophen (Tylenol) 650 mg PRN Q6HRS PRN PO FEVER; Start 05/26/16 at 07:45 Lorazepam (Ativan) 0.5 mg PRN Q6HRS PRN PO ANXIETY / AGITATION Last administered on 05/26/16 08:22; Start 05/26/16 at 08:00; Stop 05/26/16 at 08:27 ; Status DC Hydralazine HCl (Apresoline) 10 mg PRN Q4HRS PRN IVP ELEVATED BP, SEE COMMENTS Last administered on 05/27/16 04:31; Start 05/26/16 at 08:00 Lorazepam 0.5 mg 0.5 mg PRN Q6HRS PRN IV ANXIETY / AGITATION Last administered on 05/27/16 04:31; Start 05/26/16 at 08:30 Sincalide/Sodium Chloride (Kinevac/Iv Sodium Chloride 0.9% 50ml) 30 ml @ 120 mls/hr 1X ONCE IV Last administered on 05/26/16 10:44; Start 05/26/16 at 09: 30; Stop 05/26/16 at 09:44; Status DC Aspirin (Ecotrin) 81 mg DAILYWBKFT PO ; Start 05/26/16 at 13:00 Ondansetron HCl (Zofran) 4 mg PRN Q6HRS PRN IV Nausea; Start 05/27/16 at 07:00 ; Stop 05/28/16 at 06:59 Fentanyl Citrate (Fentanyl 2ml Vial) 25 mcg PRN Q5MIN PRN IV MILD PAIN; Start 05/27/16 at 07:00; Stop 05/28/16 at 06:59 Fentanyl Citrate (Fentanyl 2ml Vial) 50 mcg PRN Q5MIN PRN IV MODERATE PAIN; Start 05/27/16 at 07:00; Stop 05/28/16 at 06:59 Morphine Sulfate 1 mg 1 mg PRN Q10MIN PRN IV SEVERE PAIN Last administered on 09:58; Start 05/27/16 at 07:00; Stop 05/28/16 at 06:59 Lactated Ringer's (Iv Lactated Ringers) 1,000 ml @ 30 mls/hr Q24H IV Last administered on 05/27/16 07:00; Start 05/27/16 at 07:00; Stop 05/27/16 at 18:59 Lidocaine HCl 2 ml 1X PRN PRN ID IV START; Start 05/27/16 at 07:00; Stop at 06:59 Hydromorphone HCl (Dilaudid) 0.5 mg PRN Q10MIN PRN IV SEVERE PAIN, Second choice Last administered on 05/27/16 09:46; Start 05/27/16 at 07:00; Stop 05/28 at 06:59 Prochlorperazine Edisylate (Compazine) 5 mg PACU PRN PRN IV NAUSEA; Start 05/27 at 07:00; Stop 05/28/16 at 06:59 Phytonadione (Vitamin K) 10 mg 1X ONCE SQ Last administered on 05/27/16 01:48 ; Start 05/27/16 at 01:30; Stop 05/27/16 at 01:31; Status DC Cellulose 1 each STK-MED ONCE .ROUTE ; Start 05/27/16 at 07:14; Stop 05/27/16 at 07:15; Status DC Bupivacaine HCl/ Epinephrine Bitart (Sensorcain-Mpf Epi 0.5%-[id number]) 30 ml STK -MED ONCE .ROUTE Last administered on 05/27/16 08:25; Start 05/27/16 at 07:14 ; Stop 05/27/16 at 07:15; Status DC Iohexol (Omnipaque 300 Mg/ml) 50 ml STK-MED ONCE .ROUTE Last administered on 08:25; Start 05/27/16 at 07:15; Stop 05/27/16 at 07:16; Status DC Desflurane (Suprane) 60 ml STK-MED ONCE IH ; Start 05/27/16 at 07:36; Stop 05/27 at 07:37; Status DC Midazolam HCl (Versed) 2 mg STK-MED ONCE .ROUTE ; Start 05/27/16 at 07:37; Stop 05/27/16 at 07:38; Status DC Fentanyl Citrate (Fentanyl 2ml Vial) 100 mcg STK-MED ONCE .ROUTE ; Start at 07:37; Stop 05/27/16 at 07:38; Status DC Glycopyrrolate (Robinul) 1 mg STK-MED ONCE .ROUTE ; Start 05/27/16 at 07:37; Stop 05/27/16 at 07:38; Status DC Neostigmine Methylsulfate 5 mg STK-MED ONCE .ROUTE ; Start 05/27/16 at 07:37; Stop 05/27/16 at 07:38; Status DC Rocuronium Kirby 50 mg 50 mg STK-MED ONCE .ROUTE ; Start 05/27/16 at 07:38; Stop 05/27/16 at 07:39; Status DC Propofol (Diprivan) 20 ml @ As Directed STK-MED ONCE IV ; Start 05/27/16 at 07: 38; Stop 05/27/16 at 07:39; Status DC Dexamethasone Sodium Phosphate (Decadron) 20 mg STK-MED ONCE .ROUTE ; Start at 07:38; Stop 05/27/16 at 07:39; Status DC Ondansetron HCl (Zofran) 4 mg STK-MED ONCE .ROUTE ; Start 05/27/16 at 07:38; Stop 05/27/16 at 07:39; Status DC Lidocaine HCl 100 mg 100 mg STK-MED ONCE .ROUTE ; Start 05/27/16 at 07:38; Stop 05/27/16 at 07:39; Status DC Cefazolin Sodium/ Dextrose (Ancef 2gm Premix) 50 ml @ As Directed STK-MED ONCE IV ; Start 05/27/16 at 07:48; Stop 05/27/16 at 07:49; Status DC Famotidine (Pepcid) 20 mg BID IVP ; Start 05/27/16 at 09:00 Phenylephrine HCl 1 mg STK-MED ONCE IV ; Start 05/27/16 at 08:17; Stop 05/27/16 at 08:18; Status DC Ephedrine Sulfate 50 mg STK-MED ONCE IV ; Start 05/27/16 at 08:23; Stop at 08:24; Status DC Glucagon (Glucagen) 1 mg STK-MED ONCE .ROUTE ; Start 05/27/16 at 08:42; Stop at 08:43; Status DC Fentanyl Citrate (Fentanyl 2ml Vial) 100 mcg STK-MED ONCE .ROUTE ; Start at 09:10; Stop 05/27/16 at 09:11; Status DC Oxycodone/ Acetaminophen (Percocet 5/325) 1 tab PRN Q4HRS PRN PO PAIN; Start at 09:45 Midazolam HCl (Versed) 2 mg STK-MED ONCE .ROUTE ; Start 05/27/16 at 09:43; Stop 05/27/16 at 09:44; Status DC Oxycodone/ Acetaminophen (Percocet 5/325) 2 tab PRN Q4HRS PRN PO PAIN; Start at 09:45 Midazolam HCl (Versed) 2 mg 1X ONCE IV Last administered on 05/27/16t 09:50; Start 05/27/16 at 10:00; Stop 05/27/16 at 10:01; Status DC Hydromorphone HCl 1.5 mg 1.5 mg 1X ONCE IV Last administered on 05/27/16t 09: 35; Start 05/27/16 at 10:00; Stop 05/27/16 at 10:01; Status DC Cefazolin Sodium/ Dextrose (Ancef 2gm Premix) 50 ml @ 100 mls/hr 1X ONCE IV Last administered on 05/27/16t 08:08; Start 05/27/16 at 07:15; Stop 05/27/16 at 10:16; Status DC Active Scripts Active Reported Vitamin D3 (Cholecalciferol (Vitamin D3)) 1,000 Unit Tablet 1 Tab PO DAILY Percocet 5-325 Mg Tablet (Oxycodone/Acetaminophen) 1 Each Tablet 1-2 Tab PO Q4- 6HRS Garlique (Garlic) 5,000 Mcg Tablet 5,000 Mcg PO DAILY Multivitamins (Multivitamin) 1 Each Tablet 1 Tab PO DAILY Krill Oil 1,000 Mg Softgel (Krill/Om3/Dha/Epa/Om6/Lip/Astx) 1 Each Capsule 1 Each PO DAILY Lipitor (Atorvastatin Calcium) 10 Mg Tablet 1 Tab PO QHS Montelukast Sodium Tablet (Montelukast Sodium) 10 Mg Tablet 1 Tab PO HS Finasteride 5 Mg Tablet 2 Tab PO QHS Losartan Potassium 50 Mg Tablet 50 Mg PO QHS Coreg (Carvedilol) 12.5 Mg Tablet 1 Tab PO DAILY Tamsulosin Hcl 0.4 Mg Cap.er.24h 0.8 Mg PO QHS Warfarin Sodium 7.5 Mg Tablet 7.5 Mg PO HS Vitals/I & O Vital Sign - Last 24 Hours 05/26/16 05/26/16 05/26/16 05/26/16 11:00 11:20 12:20 14:56 Temp 97.5 97.6 97.5 97.6 Pulse 82 79 Resp 16 18 16 B/P 157/81 154/77 Pulse Ox 98 99 99 98 O2 Delivery Room Air Room Air Room Air Room Air 05/26/16 05/26/16 05/26/16 05/26/16 15:56 16:10 16:28 16:41 Temp 97.5 97.6 97.8 97.9 97.5 97.6 97.8 97.9 Pulse 74 79 68 84 Resp 18 18 18 18 B/P 171/93 152/74 166/90 159/87 05/26/16 05/26/16 05/26/16 05/26/16 18:03 19:00 19:50 20:00 Temp 97.6 97.6 97.6 97.6 Pulse 69 69 Resp 18 18 B/P 156/104 156/104 Pulse Ox 98 98 O2 Delivery Room Air Room Air Room Air 05/26/16 05/26/16 05/26/16 05/26/16 20:05 20:10 21:05 22:10 Temp 97.6 98.1 97.6 98.1 Pulse 65 69 80 Resp 18 18 18 B/P 157/84 156/104 164/83 O2 Delivery Room Air 05/26/16 05/26/16 05/26/16 05/27/16 22:10 22:15 22:54 00:20 Temp 98.1 98.1 98.1 98.1 Pulse 98 98 81 Resp 18 18 18 B/P 182/113 182/113 163/82 Pulse Ox 96 O2 Delivery Room Air 05/27/16 05/27/16 05/27/16 05/27/16 02:36 02:58 03:15 03:47 Temp 97.9 97.7 97.9 97.7 Pulse 98 95 Resp 18 18 16 B/P 135/78 168/86 O2 Delivery Room Air Room Air 05/27/16 05/27/16 05/27/16 05/27/16 04:10 04:31 04:33 04:48 Temp 98.3 98.4 97.9 98.3 98.4 97.9 Pulse 95 95 92 91 Resp 16 18 B/P 180/101 180/101 172/94 150/86 05/27/16 05/27/16 05/27/16 05/27/16 05:48 07:24 07:38 09:25 Temp 97.6 98.2 99.2 97.6 98.2 99.2 Pulse 97 99 102 88 Resp 18 15 B/P 172/90 170/98 170/98 136/70 Pulse Ox 96 97 O2 Delivery Room Air Simple Mask O2 Flow Rate 10 05/27/16 05/27/16 05/27/16 05/27/16 09:25 09:35 09:40 09:45 Temp 99.2 99.2 Pulse 83 Resp 15 15 B/P 116/81 Pulse Ox 100 97 97 O2 Delivery Mask Simple Mask Simple Mask Room Air O2 Flow Rate 10 10.0 10 10.0 05/27/16 05/27/16 05/27/16 05/27/16 09:46 09:55 09:58 10:10 Temp 99.2 99.2 99.2 99.2 Pulse 90 85 Resp 15 15 15 15 B/P 113/63 115/56 Pulse Ox 97 99 100 94 O2 Delivery Room Air Simple Mask Simple Mask Room Air O2 Flow Rate 10.0 10 10.0 Intake and Output 05/26/16 05/26/16 05/27/16 15:00 23:00 07:00 Intake Total 10 ml 969 ml 0 ml Output Total 200 ml 450 ml Balance 10 ml 769 ml -450 ml Images On IOC: IMPRESSION: 1. Filling defect in the cystic duct remnant suggesting a retained calculus or debris versus an air bubble. 2. Lack of extension of contrast into the duodenum may be due to ampullary spasm, although a stricture or occult calculus cannot be excluded. --have reviewed study and agree. Ampullary spasm may contribute. Problem List Problems Medical Problems: (1) Abdominal pain Status: Acute (2) Angina pectoris Status: Acute (3) Atrial fibrillation Status: Acute (4) Chest pain Status: Acute (5) Cholelithiasis Status: Acute Assessment Cholelithiasis, s/p lap lisset. Plan of Care Note Continue post-op care. Follow LFT's. BAUTISTA LEVINE MD May 27, 2016 10:39
[2016-05-27] MEDS: IV NORMAL SALINE 1000ML BAG 1,000 ML IV SCH (13:15)
[2016-05-27] MEDS: MONTELUKAST SODIUM 10 MG TABLET. PO SCH (21:37)
[2016-05-27] MEDS: FINASTERIDE 5 MG TABLET PO SCH (21:37)
[2016-05-27] MEDS: TAMSULOSIN 0.4 MG CAP.ER.24H. PO SCH (21:37)
[2016-05-27] MEDS: LOSARTAN POTASSIUM 50 MG TABLET. PO SCH (21:38)
[2016-05-28] MEDS: IV NORMAL SALINE 1000ML BAG 1,000 ML IV SCH ×2 (02:35→15:55)
[2016-05-28 03:11] VITALS: BP 152/87
[2016-05-28] MEDS: OXYCODONE/APAP 5/325 TABLET. PO PRN ×4 (05:23→22:17)
[2016-05-28 05:41] LABS: BASO % 0 % (0-3); EOS % 0 % (0-3); HEMATOCRIT 32.9 % (39.0-53.0); HEMOGLOBIN 11.1 g/dL (13.0-17.5); LYMPH % 10 % (24-48); MEAN CORPUSCULAR HEMOGLOBIN 29 pg (25-35); MEAN CORPUSCULAR HGB CONC 34 g/dL (31-37); MEAN CORPUSCULAR VOLUME 85 fL (79-100); MONO % 10 % (0-9); NEUT % 80 % (31-73); PLATELET COUNT 233 x10^3/uL (140-400); RED BLOOD COUNT 3.87 x10^6/uL (4.30-5.70); RED CELL DISTRIBUTION WIDTH 14.3 % (11.5-14.5); WHITE BLOOD COUNT 10.2 x10^3/uL (4.0-11.0)
[2016-05-28 06:34] LABS: ALBUMIN 3.2 g/dL (3.4-5.0); ALBUMIN/GLOBULIN RATIO 0.8 (1.0-1.7); CALCIUM 9.4 mg/dL (8.5-10.1); CREATININE 0.7 mg/dL (0.7-1.3); DIRECT BILIRUBIN 0.2 mg/dL (0.0-0.2); GFR 111.2; POTASSIUM 3.8 mmol/L (3.5-5.1); TOTAL BILIRUBIN 0.7 mg/dL (0.2-1.0)
[2016-05-28 07:00] VITALS: BP 153/85
--- NOTE | 2016-05-28 08:09 | PDOC ---
[employer] 05/28/16 0809: IM PROGRESS NOTES- Subjective Subjective ambulating, post op pain, minimal rectal flatus Objective Objective no distress Vitals Vital Signs Date Time Temp Pulse Resp B/P Pulse Ox O2 Delivery O2 Flow Rate FiO2 05/28/16 06:23 18 Room Air 05/28/16 03:11 97.9 90 152/87 93 97.9 05/27/16 09:58 10.0 Input & Output Intake and Output 05/28/16 07:00 Intake Total 1100 ml Balance 1100 ml Intake Oral 500 ml IV Total 600 ml # Voids 6 Physical Exam Physical Exam General appearance - alert, no distress Mental Status - alert, oriented to person, place, and time, anxious Head - normal Chest - clear to auscultation, no wheezes, rales or rhonchi, symmetric air entry Heart - S1 and S2 normal Abdomen - soft, tender r/t surgery, BS hypoactive, mild distention Neurological - no acute focal neurological deficit noted Musculoskeletal -chronic pain controlled Extremities - no pedal edema Skin - warm and dry Labs Laboratory Tests Test 05/26/16 08:38 05/27/16 00:01 05/27/16 06:25 05/28/16 05:15 Prothrombin Time 18.7SEC (11.7-14.0) 18.9SEC (11.7-14.0) 17.3SEC (11.7-14.0) Prothromb Time International Ratio 1.7 (0.8-1.1) 1.7 (0.8-1.1) 1.5 (0.8-1.1) White Blood Count 7.2x10^3/uL (4.0-11.0) 10.2x10^3/uL (4.0-11.0) Red Blood Count 4.03x10^6/uL (4.30-5.70) 3.87x10^6/uL (4.30-5.70) Hemoglobin 11.5g/dL (13.0-17.5) 11.1g/dL (13.0-17.5) Hematocrit 35.0% (39.0-53.0) 32.9% (39.0-53.0) Mean Corpuscular Volume 87fL (79-100) 85fL (79-100) Mean Corpuscular Hemoglobin 28pg (25-35) 29pg (25-35) Mean Corpuscular Hemoglobin Concent 33g/dL (31-37) 34g/dL (31-37) Red Cell Distribution Width 14.2% (11.5-14.5) 14.3% (11.5-14.5) Platelet Count 215x10^3/uL (140-400) 233x10^3/uL (140-400) Neutrophils (%) (Auto) 79% (31-73) 80% (31-73) Lymphocytes (%) (Auto) 12% (24-48) 10% (24-48) Monocytes (%) (Auto) 8% (0-9) 10% (0-9) Eosinophils (%) (Auto) 1% (0-3) 0% (0-3) Basophils (%) (Auto) 0% (0-3) 0% (0-3) Neutrophils # (Auto) 5.7x10^3uL (1.8-7.7) 8.2x10^3uL (1.8-7.7) Lymphocytes # (Auto) 0.8x10^3/uL (1.0-4.8) 1.0x10^3/uL (1.0-4.8) Monocytes # (Auto) 0.6x10^3/uL (0.0-1.1) 1.0x10^3/uL (0.0-1.1) Eosinophils # (Auto) 0.1x10^3/uL (0.0-0.7) 0.0x10^3/uL (0.0-0.7) Basophils # (Auto) 0.0x10^3/uL (0.0-0.2) 0.0x10^3/uL (0.0-0.2) Sodium Level 139mmol/L (136-145) 140mmol/L (136-145) Potassium Level 3.4mmol/L (3.5-5.1) 3.8mmol/L (3.5-5.1) Chloride Level 101mmol/L (98-107) 104mmol/L (98-107) Carbon Dioxide Level 27mmol/L (21-32) 26mmol/L (21-32) Anion Gap 11 (6-14) 10 (6-14) Blood Urea Nitrogen 12mg/dL (8-26) 17mg/dL (8-26) Creatinine 0.6mg/dL (0.7-1.3) 0.7mg/dL (0.7-1.3) Estimated GFR (Cockcroft-Gault) 132.8 111.2 BUN/Creatinine Ratio 20 (6-20) 24 (6-20) Glucose Level 96mg/dL (70-99) 112mg/dL (70-99) Calcium Level 9.3mg/dL (8.5-10.1) 9.4mg/dL (8.5-10.1) Total Bilirubin 1.1mg/dL (0.2-1.0) 0.7mg/dL (0.2-1.0) Aspartate Amino Transf (AST/SGOT) 133U/L (15-37) 70U/L (15-37) Alanine Aminotransferase (ALT/SGPT) 237U/L (16-63) 181U/L (16-63) Alkaline Phosphatase 151U/L (46-116) 129U/L (46-116) Total Protein 8.5g/dL (6.4-8.2) 7.0g/dL (6.4-8.2) Albumin 3.5g/dL (3.4-5.0) 3.2g/dL (3.4-5.0) Albumin/Globulin Ratio 0.7 (1.0-1.7) 0.8 (1.0-1.7) Direct Bilirubin 0.2mg/dL (0.0-0.2) Laboratory Tests Test 05/28/16 05:15 White Blood Count 10.2x10^3/uL (4.0-11.0) Red Blood Count 3.87x10^6/uL (4.30-5.70) Hemoglobin 11.1g/dL (13.0-17.5) Hematocrit 32.9% (39.0-53.0) Mean Corpuscular Volume 85fL (79-100) Mean Corpuscular Hemoglobin 29pg (25-35) Mean Corpuscular Hemoglobin Concent 34g/dL (31-37) Red Cell Distribution Width 14.3% (11.5-14.5) Platelet Count 233x10^3/uL (140-400) Neutrophils (%) (Auto) 80% (31-73) Lymphocytes (%) (Auto) 10% (24-48) Monocytes (%) (Auto) 10% (0-9) Eosinophils (%) (Auto) 0% (0-3) Basophils (%) (Auto) 0% (0-3) Neutrophils # (Auto) 8.2x10^3uL (1.8-7.7) Lymphocytes # (Auto) 1.0x10^3/uL (1.0-4.8) Monocytes # (Auto) 1.0x10^3/uL (0.0-1.1) Eosinophils # (Auto) 0.0x10^3/uL (0.0-0.7) Basophils # (Auto) 0.0x10^3/uL (0.0-0.2) Sodium Level 140mmol/L (136-145) Potassium Level 3.8mmol/L (3.5-5.1) Chloride Level 104mmol/L (98-107) Carbon Dioxide Level 26mmol/L (21-32) Anion Gap 10 (6-14) Blood Urea Nitrogen 17mg/dL (8-26) Creatinine 0.7mg/dL (0.7-1.3) Estimated GFR (Cockcroft-Gault) 111.2 BUN/Creatinine Ratio 24 (6-20) Glucose Level 112mg/dL (70-99) Calcium Level 9.4mg/dL (8.5-10.1) Total Bilirubin 0.7mg/dL (0.2-1.0) Direct Bilirubin 0.2mg/dL (0.0-0.2) Aspartate Amino Transf (AST/SGOT) 70U/L (15-37) Alanine Aminotransferase (ALT/SGPT) 181U/L (16-63) Alkaline Phosphatase 129U/L (46-116) Total Protein 7.0g/dL (6.4-8.2) Albumin 3.2g/dL (3.4-5.0) Albumin/Globulin Ratio 0.8 (1.0-1.7) Meds Current Medications Ephedrine Sulfate 50 mg STK-MED ONCE IV ; Start 05/27/16 at 08:23; Stop at 08:24; Status DC Famotidine (Pepcid) 20 mg BID IVP Last administered on 05/27/16 21:38; Start 05/27/16 at 09:00 Fentanyl Citrate (Fentanyl 2ml Vial) 100 mcg STK-MED ONCE .ROUTE ; Start at 09:10; Stop 05/27/16 at 09:11; Status DC Glucagon (Glucagen) 1 mg STK-MED ONCE .ROUTE ; Start 05/27/16 at 08:42; Stop at 08:43; Status DC Hydromorphone HCl (Dilaudid) 1.5 mg 1X ONCE IV Last administered on 05/27/16 09:35; Start 05/27/16 at 10:00; Stop 05/27/16 at 10:01; Status DC Midazolam HCl (Versed) 2 mg 1X ONCE IV Last administered on 05/27/16 09:50; Start 05/27/16 at 10:00; Stop 05/27/16 at 10:01; Status DC Midazolam HCl (Versed) 2 mg STK-MED ONCE .ROUTE ; Start 05/27/16 at 09:43; Stop 05/27/16 at 09:44; Status DC Oxycodone/ Acetaminophen (Percocet 5/325) 1 tab PRN Q4HRS PRN PO PAIN Last administered on 05/28/16 05:23; Start 05/27/16 at 09:45 Oxycodone/ Acetaminophen (Percocet 5/325) 2 tab PRN Q4HRS PRN PO PAIN Last administered on 05/27/16 11:19; Start 05/27/16 at 09:45 Phenylephrine HCl 1 mg STK-MED ONCE IV ; Start 05/27/16 at 08:17; Stop 05/27/16 at 08:18; Status DC Assessment Assessment Assessment IMPRESSION: 1. acute RUQ abdominal pain cholelithiasis with transaminitis 2. chest pain r/t RUQ pain 3. malignant HTN 4. anxiety 5. hyperlipidemia 6. chronic LBP with h/o DDD LS 7. anemia chronic disease 8. anticoagulation therapy post R TKR 9. bilateral wrist pain with weakness 10. R hip pain OA 11. obstructive BPH PLAN: chest pain Rowena scan MPI 02/2016 low prob cardiac event CE negative cardiology consult secondary to cholelithiasis/GB disease RUQ pain/cholelithiasis surgical consult GI consult HIDA low ejection fraction lap choley POD 1 ?ampullary spasm per intraop cholangiogram transaminitis Admit AST 206 05/28 70 ALT 130 181 AP 130 129 IV NS 75cc/hr-stop pre op improving anticoagulation post TKR Admit INR 2.4 05/27 1.7 vitamin K 10mg, FFP x 2, repeat INR 1.5 pharmacy to manage post op malignant HTN give oral meds this morning with sip water treat anxiety-Ativan 0.5mg IV q6hr prn hydralazine 10mg IV prn q6hr improving obstructive BPH will need resumption medications -sx are severe w/o meds DVT/GI prophylaxis SCD/Estuardo Pepcid hypokalemia 05/27 K3.4-in pre op holding recheck 05/28 3.8 For further plan of care, please refer to the orders. DC initiated Home dose warfarin 7mg-advised to restart when Dr. Gaona ok's Has oxycodone/acet RX from Dr. Bolivar last week, does not need rx at discharge. Plan Plan For more details regarding further plans, please refer to the orders. BASSAM SMITH MD 05/28/16 1020: IM PROGRESS NOTES- Assessment Assessment Has constipation,gas,on clear liquids. LFts improving. condition,Rx,options extensively d/w patient. The patient was seen and examined by me. Chart reviewed and plan of care formulated. Discussed with, reviewed and agree with [facility]'s notes, plan of care and orders with modifications as necessary. For more details regarding further plans, please refer to the orders. SLICK RUTHERFORD APRN May 28, 2016 08:09 BASSAM SMITH MD May 28, 2016 10:20
--- NOTE | 2016-05-28 08:11 | DISCH ---
DISCHARGE INSTRUCTIONS Condition on Discharge Condition on Discharge: Stable Activity After Discharge Activity Instructions for Disc: Activity as tolerated Diet after Discharge Diet after Discharge: Cardiac Wound Incision Care Other wound/incision instructi: surgical wound care instructions per Dr. Gaona Contacting the after DC Call your doctor for: Concerns you may have Follow-Up Follow up with: Dr. Darryl Welsh next week Follow Up With: Dr. Gaona per his instructions SLICK RUTHERFORD APRN May 28, 2016 08:10
[2016-05-28] MEDS ORDERED: WARF1TAB PO (08:15)
[2016-05-28] MEDS: FAMOTIDINE 20 MG/2 ML VIAL IVP SCH ×2 (08:53→21:01)
[2016-05-28] MEDS: ASPIRIN ENTERIC COATED 81 MG TABLET.DR. PO SCH (08:54)
[2016-05-28] MEDS: MULTIVITAMIN with MINERAL TABLET. PO SCH (08:54)
[2016-05-28] MEDS: CHOLECALCIFEROL (VITAMIN D3) 1,000 UNIT TABLET PO SCH (08:54)
[2016-05-28] MEDS: CARVEDILOL 12.5 MG TABLET PO SCH (08:55)
--- NOTE | 2016-05-28 09:55 | PDOC ---
Subjective: Subjective: Per pt - passing a little flatus, belching, tolerating clears, lower abd discomfort, wants to go home. Objective: Objective: Per RN - on clears, c/o constipation. Vital Signs: Vital Signs Date Time Temp Pulse Resp B/P Pulse Ox O2 Delivery O2 Flow Rate FiO2 05/28/16 08:55 55 153/85 05/28/16 08:54 Room Air 05/28/16 06:23 18 05/28/16 03:11 97.9 93 97.9 05/27/16 09:58 10.0 Labs: Laboratory Tests Test 05/28/16 05:15 White Blood Count 10.2x10^3/uL Red Blood Count 3.87x10^6/uL Hemoglobin 11.1g/dL Hematocrit 32.9% Mean Corpuscular Volume 85fL Mean Corpuscular Hemoglobin 29pg Mean Corpuscular Hemoglobin Concent 34g/dL Red Cell Distribution Width 14.3% Platelet Count 233x10^3/uL Neutrophils (%) (Auto) 80% Lymphocytes (%) (Auto) 10% Monocytes (%) (Auto) 10% Eosinophils (%) (Auto) 0% Basophils (%) (Auto) 0% Neutrophils # (Auto) 8.2x10^3uL Lymphocytes # (Auto) 1.0x10^3/uL Monocytes # (Auto) 1.0x10^3/uL Eosinophils # (Auto) 0.0x10^3/uL Basophils # (Auto) 0.0x10^3/uL Sodium Level 140mmol/L Potassium Level 3.8mmol/L Chloride Level 104mmol/L Carbon Dioxide Level 26mmol/L Anion Gap 10 Blood Urea Nitrogen 17mg/dL Creatinine 0.7mg/dL Estimated GFR (Cockcroft-Gault) 111.2 BUN/Creatinine Ratio 24 Glucose Level 112mg/dL Calcium Level 9.4mg/dL Total Bilirubin 0.7mg/dL Direct Bilirubin 0.2mg/dL Aspartate Amino Transf (AST/SGOT) 70U/L Alanine Aminotransferase (ALT/SGPT) 181U/L Alkaline Phosphatase 129U/L Total Protein 7.0g/dL Albumin 3.2g/dL Albumin/Globulin Ratio 0.8 Imaging: IOC 05/27/16 IMPRESSION: 1. Filling defect in the cystic duct remnant suggesting a retained calculus or debris versus an air bubble. 2. Lack of extension of contrast into the duodenum may be due to ampullary spasm , although a stricture or occult calculus cannot be excluded. PE: GEN: NAD LUNGS: CTAB HEART: RRR ABD: BS quiet, some LLQ tenderness, also incisional discomfort, drain serosang NEURO/PSYCH: A & O 3 A/P: S/p cholecystectomy 05/27/16 -calculous cholecystitis, IOC as above Elevated LFTs - improved Abd pain Constipation -- Diet per surgery. Will add Miralax. JOHNNIE MCKEON May 28, 2016 09:55
--- NOTE | 2016-05-28 10:42 | PDOC ---
AGGIE PALENCIA FOOT GATHERER 05/28/16 1042: SURGICAL PROGRESS NOTE Subjective tolerating clears no nausea some cramping pain to lower abdomen, feels constipated ambulating Vital Signs Vital Signs Date Time Temp Pulse Resp B/P Pulse Ox O2 Delivery O2 Flow Rate FiO2 05/28/16 08:55 55 153/85 05/28/16 08:54 Room Air 05/28/16 07:00 97.8 18 92 97.8 05/27/16 09:58 10.0 I&O Intake and Output 05/28/16 07:00 Intake Total 1100 ml Balance 1100 ml Intake Oral 500 ml IV Total 600 ml # Voids 6 General: Alert, Oriented X3, Cooperative, No acute distress Abdomen: Soft, Other (eusebia scan serous drainage, lap dressing dry ) Labs Laboratory Tests Test 05/27/16 00:01 05/27/16 06:25 05/28/16 05:15 Prothrombin Time 18.9SEC (11.7-14.0) 17.3SEC (11.7-14.0) Prothromb Time International Ratio 1.7 (0.8-1.1) 1.5 (0.8-1.1) White Blood Count 7.2x10^3/uL (4.0-11.0) 10.2x10^3/uL (4.0-11.0) Red Blood Count 4.03x10^6/uL (4.30-5.70) 3.87x10^6/uL (4.30-5.70) Hemoglobin 11.5g/dL (13.0-17.5) 11.1g/dL (13.0-17.5) Hematocrit 35.0% (39.0-53.0) 32.9% (39.0-53.0) Mean Corpuscular Volume 87fL (79-100) 85fL (79-100) Mean Corpuscular Hemoglobin 28pg (25-35) 29pg (25-35) Mean Corpuscular Hemoglobin Concent 33g/dL (31-37) 34g/dL (31-37) Red Cell Distribution Width 14.2% (11.5-14.5) 14.3% (11.5-14.5) Platelet Count 215x10^3/uL (140-400) 233x10^3/uL (140-400) Neutrophils (%) (Auto) 79% (31-73) 80% (31-73) Lymphocytes (%) (Auto) 12% (24-48) 10% (24-48) Monocytes (%) (Auto) 8% (0-9) 10% (0-9) Eosinophils (%) (Auto) 1% (0-3) 0% (0-3) Basophils (%) (Auto) 0% (0-3) 0% (0-3) Neutrophils # (Auto) 5.7x10^3uL (1.8-7.7) 8.2x10^3uL (1.8-7.7) Lymphocytes # (Auto) 0.8x10^3/uL (1.0-4.8) 1.0x10^3/uL (1.0-4.8) Monocytes # (Auto) 0.6x10^3/uL (0.0-1.1) 1.0x10^3/uL (0.0-1.1) Eosinophils # (Auto) 0.1x10^3/uL (0.0-0.7) 0.0x10^3/uL (0.0-0.7) Basophils # (Auto) 0.0x10^3/uL (0.0-0.2) 0.0x10^3/uL (0.0-0.2) Sodium Level 139mmol/L (136-145) 140mmol/L (136-145) Potassium Level 3.4mmol/L (3.5-5.1) 3.8mmol/L (3.5-5.1) Chloride Level 101mmol/L (98-107) 104mmol/L (98-107) Carbon Dioxide Level 27mmol/L (21-32) 26mmol/L (21-32) Anion Gap 11 (6-14) 10 (6-14) Blood Urea Nitrogen 12mg/dL (8-26) 17mg/dL (8-26) Creatinine 0.6mg/dL (0.7-1.3) 0.7mg/dL (0.7-1.3) Estimated GFR (Cockcroft-Gault) 132.8 111.2 BUN/Creatinine Ratio 20 (6-20) 24 (6-20) Glucose Level 96mg/dL (70-99) 112mg/dL (70-99) Calcium Level 9.3mg/dL (8.5-10.1) 9.4mg/dL (8.5-10.1) Total Bilirubin 1.1mg/dL (0.2-1.0) 0.7mg/dL (0.2-1.0) Aspartate Amino Transf (AST/SGOT) 133U/L (15-37) 70U/L (15-37) Alanine Aminotransferase (ALT/SGPT) 237U/L (16-63) 181U/L (16-63) Alkaline Phosphatase 151U/L (46-116) 129U/L (46-116) Total Protein 8.5g/dL (6.4-8.2) 7.0g/dL (6.4-8.2) Albumin 3.5g/dL (3.4-5.0) 3.2g/dL (3.4-5.0) Albumin/Globulin Ratio 0.7 (1.0-1.7) 0.8 (1.0-1.7) Direct Bilirubin 0.2mg/dL (0.0-0.2) Laboratory Tests Test 05/28/16 05:15 White Blood Count 10.2x10^3/uL (4.0-11.0) Red Blood Count 3.87x10^6/uL (4.30-5.70) Hemoglobin 11.1g/dL (13.0-17.5) Hematocrit 32.9% (39.0-53.0) Mean Corpuscular Volume 85fL (79-100) Mean Corpuscular Hemoglobin 29pg (25-35) Mean Corpuscular Hemoglobin Concent 34g/dL (31-37) Red Cell Distribution Width 14.3% (11.5-14.5) Platelet Count 233x10^3/uL (140-400) Neutrophils (%) (Auto) 80% (31-73) Lymphocytes (%) (Auto) 10% (24-48) Monocytes (%) (Auto) 10% (0-9) Eosinophils (%) (Auto) 0% (0-3) Basophils (%) (Auto) 0% (0-3) Neutrophils # (Auto) 8.2x10^3uL (1.8-7.7) Lymphocytes # (Auto) 1.0x10^3/uL (1.0-4.8) Monocytes # (Auto) 1.0x10^3/uL (0.0-1.1) Eosinophils # (Auto) 0.0x10^3/uL (0.0-0.7) Basophils # (Auto) 0.0x10^3/uL (0.0-0.2) Sodium Level 140mmol/L (136-145) Potassium Level 3.8mmol/L (3.5-5.1) Chloride Level 104mmol/L (98-107) Carbon Dioxide Level 26mmol/L (21-32) Anion Gap 10 (6-14) Blood Urea Nitrogen 17mg/dL (8-26) Creatinine 0.7mg/dL (0.7-1.3) Estimated GFR (Cockcroft-Gault) 111.2 BUN/Creatinine Ratio 24 (6-20) Glucose Level 112mg/dL (70-99) Calcium Level 9.4mg/dL (8.5-10.1) Total Bilirubin 0.7mg/dL (0.2-1.0) Direct Bilirubin 0.2mg/dL (0.0-0.2) Aspartate Amino Transf (AST/SGOT) 70U/L (15-37) Alanine Aminotransferase (ALT/SGPT) 181U/L (16-63) Alkaline Phosphatase 129U/L (46-116) Total Protein 7.0g/dL (6.4-8.2) Albumin 3.2g/dL (3.4-5.0) Albumin/Globulin Ratio 0.8 (1.0-1.7) Problem List Problems Medical Problems: (1) Abdominal pain Status: Acute (2) Angina pectoris Status: Acute (3) Atrial fibrillation Status: Acute (4) Chest pain Status: Acute (5) Cholelithiasis Status: Acute Assessment/Plan s/p lap lisset lfs improved would continue drain, FU in clinic wednesday for removal advance diet ok to resume coumadin Problems: AYAAN HOU MD 05/28/16 4997: SURGICAL PROGRESS NOTE Assessment/Plan Agree with above Problems: AGGIE PALENCIA FOOT GATHERER May 28, 2016 10:42 AYAAN HOU MD May 28, 2016 13:57
[2016-05-28 10:53] LABS: INR 1.4 (0.8-1.1); PROTHROMBIN TIME PATIENT 16.1 SEC (11.7-14.0)
[2016-05-28 11:00] VITALS: BP 143/82
[2016-05-28] MEDS: POLYETHYLENE GLYCOL 3350 17 GM PACKET. PO SCH (12:15)
[2016-05-28 15:00] VITALS: BP 163/84
[2016-05-28] MEDS ORDERED: BISACODYL 10 MG SUPP.RECT PR PRN (16:15)
--- NOTE | 2016-05-28 17:20 | PATHOLOGY ---
PATHOLOGY REPORT * * * * * * * * FINAL DIAGNOSIS: Gallbladder, laparoscopic cholecystectomy: - Cholelithiasis. - Cholesterolosis. - Chronic cholecystitis. COMMENT: There is no evidence of malignancy. (JPM:csd; d/t: 05/28/2016) REPORT ELECTRONICALLY SIGNED BY: Haseeb Shah M.D. DATE/TIME: 05/28/2016 17:20 * * * * * * * * GROSS PATHOLOGY: Received in formalin labeled "Ian Flowers Jr - gallbladder sac with contents," is a 9.3 x 3.8 x 1.4 cm, previously opened/disrupted gallbladder with pink-bolanos, diffusely hemorrhagic, and wrinkled serosal surfaces. Opening the gallbladder reveals bright red to light green and granular mucosa with diffuse yellow streaking and an average wall thickness of 0.1 cm. Two yellow-green, multifaceted, and granular appearing calculi measuring 1.8 and 1.9 cm in greatest dimension are present and no masses are noted grossly. Textile Conservator sections from the body and fundus are submitted along with the proximal margin in cassette A1. (TTL; 05/27/2016) INITIAL CPT CODE(S): A; 01430 Professional services [place] [address] Technical services performed by [facility] at [address] [place] [address], [facility] [address], [place] [address]. SPECIMEN(S) RECEIVED: A.Gallbladder sac with contents CLINICAL HISTORY: Cholelithiasis PATIENT: IAN FLOWERS JR /AGE: 12 1945 (Age: 71) PATIENT #: [id number] ALT CASE #: SPECIMEN COLLECTION DATE: 05/27/2016 SPECIMEN RECEIVED DATE: 05/27/2016 [facility] - [address] [place] [address] - PHONE: [phone] * * * END OF REPORT * * *
[2016-05-28 19:00] VITALS: BP 147/80
[2016-05-28] MEDS: FINASTERIDE 5 MG TABLET PO SCH (21:00)
[2016-05-28] MEDS: MONTELUKAST SODIUM 10 MG TABLET. PO SCH (21:00)
[2016-05-28] MEDS: TAMSULOSIN 0.4 MG CAP.ER.24H. PO SCH (21:00)
[2016-05-28] MEDS: LOSARTAN POTASSIUM 50 MG TABLET. PO SCH (21:01)
[2016-05-28 23:00] VITALS: BP 164/107
[2016-05-29 03:00] VITALS: BP 179/106
[2016-05-29] MEDS: OXYCODONE/APAP 5/325 TABLET. PO PRN ×4 (03:45→16:28)
[2016-05-29 05:03] LABS: BASO % 1 % (0-3); EOS % 1 % (0-3); HEMATOCRIT 34.4 % (39.0-53.0); HEMOGLOBIN 11.2 g/dL (13.0-17.5); LYMPH # 2.1 x10^3/uL (1.0-4.8); LYMPH % 24 % (24-48); MEAN CORPUSCULAR HEMOGLOBIN 28 pg (25-35); MEAN CORPUSCULAR HGB CONC 33 g/dL (31-37); MEAN CORPUSCULAR VOLUME 87 fL (79-100); MONO % 10 % (0-9); NEUT % 65 % (31-73); PLATELET COUNT 235 x10^3/uL (140-400); RED BLOOD COUNT 3.94 x10^6/uL (4.30-5.70); RED CELL DISTRIBUTION WIDTH 14.3 % (11.5-14.5); WHITE BLOOD COUNT 8.8 x10^3/uL (4.0-11.0)
[2016-05-29] MEDS: IV NORMAL SALINE 1000ML BAG 1,000 ML IV SCH (05:15)
[2016-05-29 05:16] LABS: INR 1.3 (0.8-1.1); PROTHROMBIN TIME PATIENT 15.1 SEC (11.7-14.0)
[2016-05-29 05:26] LABS: ALBUMIN 3.2 g/dL (3.4-5.0); ALBUMIN/GLOBULIN RATIO 0.9 (1.0-1.7); CREATININE 0.8 mg/dL (0.7-1.3); GFR 95.3; POTASSIUM 3.7 mmol/L (3.5-5.1); TOTAL BILIRUBIN 0.6 mg/dL (0.2-1.0); TOTAL PROTEIN 6.9 g/dL (6.4-8.2)
[2016-05-29] MEDS: hydrALAZINE 20 MG/ML VIAL. IVP PRN (05:55)
[2016-05-29 07:00] VITALS: BP_SYST 170; BP_SYST 198; BP_DIAS 107; BP_DIAS 88
[2016-05-29] MEDS: ASPIRIN ENTERIC COATED 81 MG TABLET.DR. PO SCH (08:14)
[2016-05-29] MEDS: CHOLECALCIFEROL (VITAMIN D3) 1,000 UNIT TABLET PO SCH (08:14)
[2016-05-29] MEDS: MULTIVITAMIN with MINERAL TABLET. PO SCH (08:14)
[2016-05-29] MEDS: FAMOTIDINE 20 MG/2 ML VIAL IVP SCH (08:15)
[2016-05-29] MEDS: CARVEDILOL 12.5 MG TABLET PO SCH (08:15)
[2016-05-29] MEDS: POLYETHYLENE GLYCOL 3350 17 GM PACKET. PO SCH (08:16)
--- NOTE | 2016-05-29 08:36 | PDOC3 ---
IM DISCHARGE & PROGRESS NOTES Date of Admission Date of Admission Date of Admission: May 25, 2016 at 16:00 Date of Discharge Date of Discharge 02/26/17 Primary Diagnosis Primary Diagnosis IMPRESSION: 1. acute RUQ abdominal pain cholelithiasis with transaminitis s/p lap choley 2. chest pain r/t RUQ pain 3. malignant HTN 4. anxiety 5. hyperlipidemia 6. chronic LBP with h/o DDD LS 7. anemia chronic disease 8. anticoagulation therapy post R TKR 9. bilateral wrist pain with weakness 10. R hip pain OA 11. obstructive BPH 12. constipation Consults Consults Ayaan Hou MD Procedures Procedures Operative Note Operative Note Operative Note: Preoperative Diagnosis: Calculous cholecystitis Postoperative Diagnosis: Same Procedure: Laparoscopic cholecystectomy with intraoperative cholangiogram Surgeons: Jimenez Asst: Jeanette WEBSTER Anesthesia: Gen. Estimated Blood Loss: 20 mL Specimen: Gallbladder to pathology Drains: 19 Fr GIOVANNA Complications: None Indications: The patient is a 71year old male who is been experiencing upper abdominal pain. His evaluation showed gallstones and concern for potential choledocholithiasis. Surgical treatment was offered by means of a laparoscopic cholecystectomy. The risks of surgery were discussed which include bleeding, infection, bile duct injury, bile leak, pain, the potential for additional surgeries or procedures. The patient understands and would like to proceed. Description: The patient was taken to the operating room and laid supine on the operating table. General anesthesia was performed. The abdomen was prepped with ChloraPrep and draped in a standard surgical fashion. A small infraumbilical incision was made with a scalpel. The Veress needle was then inserted and a pneumoperitoneum was then created. A 5 mm trocar was then inserted and the laparoscope was introduced. In the upper midabdomen a 5 mm trocar was inserted and in the right upper quadrant two 2.3 mm mini lap graspers were inserted. The gallbladder was retracted cephalad. The cystic duct was dissected free from surrounding tissues. One clip was placed on the duct near the gallbladder junction. An opening was made in the duct and a cholangiocatheter placed within and secured with a clip. Using contrast dye and fluoroscopy an intraoperative cholangiogram was performed. The main bile ducts generally appeared normal. However there was minimal passage of contrast into the duodenum. 1mg of glucagon was administered and allowed to circulate. Despite this there continued to be minimal contrast passage. The appearance seemed consistent with potential sphincter spasm vs a very small stone or debris. However a clear filling defect was not easily seen. The clip and catheter were then withdrawn. Three clips were placed on the cystic duct and it was divided. The cystic artery was then identified, dissected free, doubly clipped and divided as well. The gallbladder was then mobilized away from the liver with cautery. The umbilical 5 millimeter trocar was exchanged for an 11 millimeter trocar. One of the 2.3 mm graspers was also exchanged for a 5 mm trocar. A 19 Fr round drain was placed in the gallbladder fossa and exited at the 5 mm right lateral abdomen trocar site. This was secured to the skin with a 2-0 silk suture. The gallbladder was then placed in an endoscopic bag and extracted at the umbilical trocar site. The fascia there was closed with 0 Vicryl sutures. All blood and irrigation fluid was suctioned and hemostasis was good. The remaining ports were removed and the pneumoperitoneum was relieved. The skin incisions were injected with half percent Marcaine with epinephrine, and all were closed using 4-0 Monocryl suture. Steri-Strips and dressings were then applied. The patient tolerated the procedure well and was sent to the recovery room in stable condition. At the end of the case all counts were correct. AYAAN HOU MD May 27, 2016 09:49 SIGNED BY: AYAAN HOU MD DATE: 05/27/16 0949 cc: AYAAN HOU MD; BASSAM SMITH MD~ Labs Labs Laboratory Tests Test 05/26/16 08:38 05/27/16 00:01 05/27/16 06:25 05/28/16 05:15 Prothrombin Time 18.7SEC (11.7-14.0) 18.9SEC (11.7-14.0) 17.3SEC (11.7-14.0) Prothromb Time International Ratio 1.7 (0.8-1.1) 1.7 (0.8-1.1) 1.5 (0.8-1.1) White Blood Count 7.2x10^3/uL (4.0-11.0) 10.2x10^3/uL (4.0-11.0) Red Blood Count 4.03x10^6/uL (4.30-5.70) 3.87x10^6/uL (4.30-5.70) Hemoglobin 11.5g/dL (13.0-17.5) 11.1g/dL (13.0-17.5) Hematocrit 35.0% (39.0-53.0) 32.9% (39.0-53.0) Mean Corpuscular Volume 87fL (79-100) 85fL (79-100) Mean Corpuscular Hemoglobin 28pg (25-35) 29pg (25-35) Mean Corpuscular Hemoglobin Concent 33g/dL (31-37) 34g/dL (31-37) Red Cell Distribution Width 14.2% (11.5-14.5) 14.3% (11.5-14.5) Platelet Count 215x10^3/uL (140-400) 233x10^3/uL (140-400) Neutrophils (%) (Auto) 79% (31-73) 80% (31-73) Lymphocytes (%) (Auto) 12% (24-48) 10% (24-48) Monocytes (%) (Auto) 8% (0-9) 10% (0-9) Eosinophils (%) (Auto) 1% (0-3) 0% (0-3) Basophils (%) (Auto) 0% (0-3) 0% (0-3) Neutrophils # (Auto) 5.7x10^3uL (1.8-7.7) 8.2x10^3uL (1.8-7.7) Lymphocytes # (Auto) 0.8x10^3/uL (1.0-4.8) 1.0x10^3/uL (1.0-4.8) Monocytes # (Auto) 0.6x10^3/uL (0.0-1.1) 1.0x10^3/uL (0.0-1.1) Eosinophils # (Auto) 0.1x10^3/uL (0.0-0.7) 0.0x10^3/uL (0.0-0.7) Basophils # (Auto) 0.0x10^3/uL (0.0-0.2) 0.0x10^3/uL (0.0-0.2) Sodium Level 139mmol/L (136-145) 140mmol/L (136-145) Potassium Level 3.4mmol/L (3.5-5.1) 3.8mmol/L (3.5-5.1) Chloride Level 101mmol/L (98-107) 104mmol/L (98-107) Carbon Dioxide Level 27mmol/L (21-32) 26mmol/L (21-32) Anion Gap 11 (6-14) 10 (6-14) Blood Urea Nitrogen 12mg/dL (8-26) 17mg/dL (8-26) Creatinine 0.6mg/dL (0.7-1.3) 0.7mg/dL (0.7-1.3) Estimated GFR (Cockcroft-Gault) 132.8 111.2 BUN/Creatinine Ratio 20 (6-20) 24 (6-20) Glucose Level 96mg/dL (70-99) 112mg/dL (70-99) Calcium Level 9.3mg/dL (8.5-10.1) 9.4mg/dL (8.5-10.1) Total Bilirubin 1.1mg/dL (0.2-1.0) 0.7mg/dL (0.2-1.0) Aspartate Amino Transf (AST/SGOT) 133U/L (15-37) 70U/L (15-37) Alanine Aminotransferase (ALT/SGPT) 237U/L (16-63) 181U/L (16-63) Alkaline Phosphatase 151U/L (46-116) 129U/L (46-116) Total Protein 8.5g/dL (6.4-8.2) 7.0g/dL (6.4-8.2) Albumin 3.5g/dL (3.4-5.0) 3.2g/dL (3.4-5.0) Albumin/Globulin Ratio 0.7 (1.0-1.7) 0.8 (1.0-1.7) Direct Bilirubin 0.2mg/dL (0.0-0.2) Test 05/28/16 10:25 05/29/16 04:20 Prothrombin Time 16.1SEC (11.7-14.0) 15.1SEC (11.7-14.0) Prothromb Time International Ratio 1.4 (0.8-1.1) 1.3 (0.8-1.1) White Blood Count 8.8x10^3/uL (4.0-11.0) Red Blood Count 3.94x10^6/uL (4.30-5.70) Hemoglobin 11.2g/dL (13.0-17.5) Hematocrit 34.4% (39.0-53.0) Mean Corpuscular Volume 87fL (79-100) Mean Corpuscular Hemoglobin 28pg (25-35) Mean Corpuscular Hemoglobin Concent 33g/dL (31-37) Red Cell Distribution Width 14.3% (11.5-14.5) Platelet Count 235x10^3/uL (140-400) Neutrophils (%) (Auto) 65% (31-73) Lymphocytes (%) (Auto) 24% (24-48) Monocytes (%) (Auto) 10% (0-9) Eosinophils (%) (Auto) 1% (0-3) Basophils (%) (Auto) 1% (0-3) Neutrophils # (Auto) 5.7x10^3uL (1.8-7.7) Lymphocytes # (Auto) 2.1x10^3/uL (1.0-4.8) Monocytes # (Auto) 0.9x10^3/uL (0.0-1.1) Eosinophils # (Auto) 0.1x10^3/uL (0.0-0.7) Basophils # (Auto) 0.0x10^3/uL (0.0-0.2) Sodium Level 140mmol/L (136-145) Potassium Level 3.7mmol/L (3.5-5.1) Chloride Level 103mmol/L (98-107) Carbon Dioxide Level 29mmol/L (21-32) Anion Gap 8 (6-14) Blood Urea Nitrogen 19mg/dL (8-26) Creatinine 0.8mg/dL (0.7-1.3) Estimated GFR (Cockcroft-Gault) 95.3 BUN/Creatinine Ratio 24 (6-20) Glucose Level 96mg/dL (70-99) Calcium Level 9.0mg/dL (8.5-10.1) Total Bilirubin 0.6mg/dL (0.2-1.0) Aspartate Amino Transf (AST/SGOT) 42U/L (15-37) Alanine Aminotransferase (ALT/SGPT) 137U/L (16-63) Alkaline Phosphatase 114U/L (46-116) Total Protein 6.9g/dL (6.4-8.2) Albumin 3.2g/dL (3.4-5.0) Albumin/Globulin Ratio 0.9 (1.0-1.7) Medications Medications Medications reviewed and reconciled for discharge. Brief hospital course Brief hospital course This 71 year old male who presented with acute abdominal pain was admitted. The following is a summary of his treatment: chest pain Rowena scan MPI 02/2016 low prob cardiac event CE negative cardiology consult secondary to cholelithiasis/GB disease RUQ pain/cholelithiasis surgical consult GI consult HIDA low ejection fraction lap choley POD 2 ?ampullary spasm per intraop cholangiogram transaminitis Admit AST 206 05/29 42 ALT 130 137 AP 130 114 IV NS 75cc/hr-stop pre op improving anticoagulation post TKR Admit INR 2.4 05/27 1.7 vitamin K 10mg, FFP x 2, repeat INR 1.5 pharmacy to manage post op Coumadin resumed malignant HTN give oral meds this morning with sip water treat anxiety-Ativan 0.5mg IV q6hr prn hydralazine 10mg IV prn q6hr improving obstructive BPH will need resumption medications -sx are severe w/o meds DVT/GI prophylaxis SCD/Estuardo Pepcid hypokalemia 05/27 K3.4-in pre op holding recheck 05/28 3.8 For more details regarding the past history, family history, social history, surgical history and other details, please refer to History and Physical. His post operative course is stable. He will be discharged home. Please refer to discharge orders. Subjective BM x 2 today Objective no distress Vitals Vital Signs Date Time Temp Pulse Resp B/P Pulse Ox O2 Delivery O2 Flow Rate FiO2 05/29/16 08:15 98 198/107 05/29/16 07:00 97.7 20 94 Room Air 97.7 Physical Exam General appearance - alert, no distress Mental Status - alert, oriented to person, place, and time, anxious Head - normal Chest - clear to auscultation, no wheezes, rales or rhonchi, symmetric air entry Heart - S1 and S2 normal Abdomen - soft, tender r/t surgery, BS hypoactive, mild distention Neurological - no acute focal neurological deficit noted Musculoskeletal -chronic pain controlled Extremities - no pedal edema Skin - warm and dry Medications Medications reviewed. Allergy Allergies Coded Allergies Type Severity Reaction Last Updated Verified No Known Drug Allergies 03/17/16 No Follow up Wednesday Disposition: Home Comments Discharge Management - 35 minutes. For other details please refer to discharge instructions SLICK RUTHERFORD APRN May 29, 2016 08:36
[2016-05-29] MEDS ORDERED: POLY255P PO (08:39)
--- NOTE | 2016-05-29 09:26 | PDOC ---
AGGIE PALENCIA [employer]ION[employer] HR MANAGER 05/29/16 0926: SURGICAL PROGRESS NOTE Subjective more pain to LUQ today had some bowel function no nausea or emesis Vital Signs Vital Signs Date Time Temp Pulse Resp B/P Pulse Ox O2 Delivery O2 Flow Rate FiO2 05/29/16 08:15 98 198/107 05/29/16 07:00 97.7 20 94 Room Air 97.7 I&O Intake and Output 05/29/16 07:00 Intake Total 1130 ml Balance 1130 ml Intake Oral 1130 ml # Voids 5 General: Alert, Oriented X3, Cooperative, No acute distress Abdomen: Soft, Other (eusebia serosang, RUQ incisional pain, moderate LUQ pain) Labs Laboratory Tests Test 05/28/16 05:15 05/28/16 10:25 05/29/16 04:20 White Blood Count 10.2x10^3/uL (4.0-11.0) 8.8x10^3/uL (4.0-11.0) Red Blood Count 3.87x10^6/uL (4.30-5.70) 3.94x10^6/uL (4.30-5.70) Hemoglobin 11.1g/dL (13.0-17.5) 11.2g/dL (13.0-17.5) Hematocrit 32.9% (39.0-53.0) 34.4% (39.0-53.0) Mean Corpuscular Volume 85fL (79-100) 87fL (79-100) Mean Corpuscular Hemoglobin 29pg (25-35) 28pg (25-35) Mean Corpuscular Hemoglobin Concent 34g/dL (31-37) 33g/dL (31-37) Red Cell Distribution Width 14.3% (11.5-14.5) 14.3% (11.5-14.5) Platelet Count 233x10^3/uL (140-400) 235x10^3/uL (140-400) Neutrophils (%) (Auto) 80% (31-73) 65% (31-73) Lymphocytes (%) (Auto) 10% (24-48) 24% (24-48) Monocytes (%) (Auto) 10% (0-9) 10% (0-9) Eosinophils (%) (Auto) 0% (0-3) 1% (0-3) Basophils (%) (Auto) 0% (0-3) 1% (0-3) Neutrophils # (Auto) 8.2x10^3uL (1.8-7.7) 5.7x10^3uL (1.8-7.7) Lymphocytes # (Auto) 1.0x10^3/uL (1.0-4.8) 2.1x10^3/uL (1.0-4.8) Monocytes # (Auto) 1.0x10^3/uL (0.0-1.1) 0.9x10^3/uL (0.0-1.1) Eosinophils # (Auto) 0.0x10^3/uL (0.0-0.7) 0.1x10^3/uL (0.0-0.7) Basophils # (Auto) 0.0x10^3/uL (0.0-0.2) 0.0x10^3/uL (0.0-0.2) Sodium Level 140mmol/L (136-145) 140mmol/L (136-145) Potassium Level 3.8mmol/L (3.5-5.1) 3.7mmol/L (3.5-5.1) Chloride Level 104mmol/L (98-107) 103mmol/L (98-107) Carbon Dioxide Level 26mmol/L (21-32) 29mmol/L (21-32) Anion Gap 10 (6-14) 8 (6-14) Blood Urea Nitrogen 17mg/dL (8-26) 19mg/dL (8-26) Creatinine 0.7mg/dL (0.7-1.3) 0.8mg/dL (0.7-1.3) Estimated GFR (Cockcroft-Gault) 111.2 95.3 BUN/Creatinine Ratio 24 (6-20) 24 (6-20) Glucose Level 112mg/dL (70-99) 96mg/dL (70-99) Calcium Level 9.4mg/dL (8.5-10.1) 9.0mg/dL (8.5-10.1) Total Bilirubin 0.7mg/dL (0.2-1.0) 0.6mg/dL (0.2-1.0) Direct Bilirubin 0.2mg/dL (0.0-0.2) Aspartate Amino Transf (AST/SGOT) 70U/L (15-37) 42U/L (15-37) Alanine Aminotransferase (ALT/SGPT) 181U/L (16-63) 137U/L (16-63) Alkaline Phosphatase 129U/L (46-116) 114U/L (46-116) Total Protein 7.0g/dL (6.4-8.2) 6.9g/dL (6.4-8.2) Albumin 3.2g/dL (3.4-5.0) 3.2g/dL (3.4-5.0) Albumin/Globulin Ratio 0.8 (1.0-1.7) 0.9 (1.0-1.7) Prothrombin Time 16.1SEC (11.7-14.0) 15.1SEC (11.7-14.0) Prothromb Time International Ratio 1.4 (0.8-1.1) 1.3 (0.8-1.1) Laboratory Tests Test 05/28/16 10:25 05/29/16 04:20 Prothrombin Time 16.1SEC (11.7-14.0) 15.1SEC (11.7-14.0) Prothromb Time International Ratio 1.4 (0.8-1.1) 1.3 (0.8-1.1) White Blood Count 8.8x10^3/uL (4.0-11.0) Red Blood Count 3.94x10^6/uL (4.30-5.70) Hemoglobin 11.2g/dL (13.0-17.5) Hematocrit 34.4% (39.0-53.0) Mean Corpuscular Volume 87fL (79-100) Mean Corpuscular Hemoglobin 28pg (25-35) Mean Corpuscular Hemoglobin Concent 33g/dL (31-37) Red Cell Distribution Width 14.3% (11.5-14.5) Platelet Count 235x10^3/uL (140-400) Neutrophils (%) (Auto) 65% (31-73) Lymphocytes (%) (Auto) 24% (24-48) Monocytes (%) (Auto) 10% (0-9) Eosinophils (%) (Auto) 1% (0-3) Basophils (%) (Auto) 1% (0-3) Neutrophils # (Auto) 5.7x10^3uL (1.8-7.7) Lymphocytes # (Auto) 2.1x10^3/uL (1.0-4.8) Monocytes # (Auto) 0.9x10^3/uL (0.0-1.1) Eosinophils # (Auto) 0.1x10^3/uL (0.0-0.7) Basophils # (Auto) 0.0x10^3/uL (0.0-0.2) Sodium Level 140mmol/L (136-145) Potassium Level 3.7mmol/L (3.5-5.1) Chloride Level 103mmol/L (98-107) Carbon Dioxide Level 29mmol/L (21-32) Anion Gap 8 (6-14) Blood Urea Nitrogen 19mg/dL (8-26) Creatinine 0.8mg/dL (0.7-1.3) Estimated GFR (Cockcroft-Gault) 95.3 BUN/Creatinine Ratio 24 (6-20) Glucose Level 96mg/dL (70-99) Calcium Level 9.0mg/dL (8.5-10.1) Total Bilirubin 0.6mg/dL (0.2-1.0) Aspartate Amino Transf (AST/SGOT) 42U/L (15-37) Alanine Aminotransferase (ALT/SGPT) 137U/L (16-63) Alkaline Phosphatase 114U/L (46-116) Total Protein 6.9g/dL (6.4-8.2) Albumin 3.2g/dL (3.4-5.0) Albumin/Globulin Ratio 0.9 (1.0-1.7) Problem List Problems Medical Problems: (1) Abdominal pain Status: Acute (2) Angina pectoris Status: Acute (3) Atrial fibrillation Status: Acute (4) Chest pain Status: Acute (5) Cholelithiasis Status: Acute Assessment/Plan s/p lap lisset LFTS improved more pain LUQ--will check lipase Problems: AYAAN HOU MD 05/29/16 1210: SURGICAL PROGRESS NOTE Assessment/Plan Agree with above Problems: AGGIE PALENCIA APRN May 29, 2016 09:26 AYAAN HOU MD May 29, 2016 12:10
[2016-05-29] MEDS ORDERED: CLONIDINE HCL 0.1 MG TABLET PO PRN (09:30)
[2016-05-29 10:30] VITALS: BP 149/87
--- NOTE | 2016-05-29 14:23 | PDOC ---
Subjective: Subjective: Had two small stools. Concerned w/ constipation. Objective: Vital Signs: Vital Signs Date Time Temp Pulse Resp B/P Pulse Ox O2 Delivery O2 Flow Rate FiO2 05/29/16 12:01 Room Air 05/29/16 10:30 97.7 70 20 149/87 95 97.7 Labs: Laboratory Tests Test 05/29/16 04:20 White Blood Count 8.8x10^3/uL Red Blood Count 3.94x10^6/uL Hemoglobin 11.2g/dL Hematocrit 34.4% Mean Corpuscular Volume 87fL Mean Corpuscular Hemoglobin 28pg Mean Corpuscular Hemoglobin Concent 33g/dL Red Cell Distribution Width 14.3% Platelet Count 235x10^3/uL Neutrophils (%) (Auto) 65% Lymphocytes (%) (Auto) 24% Monocytes (%) (Auto) 10% Eosinophils (%) (Auto) 1% Basophils (%) (Auto) 1% Neutrophils # (Auto) 5.7x10^3uL Lymphocytes # (Auto) 2.1x10^3/uL Monocytes # (Auto) 0.9x10^3/uL Eosinophils # (Auto) 0.1x10^3/uL Basophils # (Auto) 0.0x10^3/uL Prothrombin Time 15.1SEC Prothromb Time International Ratio 1.3 Sodium Level 140mmol/L Potassium Level 3.7mmol/L Chloride Level 103mmol/L Carbon Dioxide Level 29mmol/L Anion Gap 8 Blood Urea Nitrogen 19mg/dL Creatinine 0.8mg/dL Estimated GFR (Cockcroft-Gault) 95.3 BUN/Creatinine Ratio 24 Glucose Level 96mg/dL Calcium Level 9.0mg/dL Total Bilirubin 0.6mg/dL Aspartate Amino Transf (AST/SGOT) 42U/L Alanine Aminotransferase (ALT/SGPT) 137U/L Alkaline Phosphatase 114U/L Total Protein 6.9g/dL Albumin 3.2g/dL Albumin/Globulin Ratio 0.9 Lipase 108U/L PE: GEN: NAD, very talkative LUNGS: CTAB HEART: RRR ABD: NABS, diffusely tender - less so than yesterday NEURO/PSYCH: A & O 3 A/P: S/p cholecystectomy 05/27/16 Elevated LFTs - improved Abd pain -note normal lipase Constipation -had two small stools w/ Miralax -- Note DC plans. Again discussed in detail possible treatments for constipation. Since he will be continuing pain meds for hip pain, etc., rec continuing Miralax daily, adjusting dose as needed. Follow-up PRN. JOHNNIE MCKEON May 29, 2016 14:23
[2016-05-29 14:37] VITALS: BP 144/88
[2016-05-29] MEDS ORDERED: WARFARIN 4 MG TABLET. PO SCH (16:00)
[2016-05-29] MEDS ORDERED: WARFARIN 3 MG TABLET. PO SCH (16:00)
[2016-05-29] MEDS ORDERED: FAMOTIDINE 20 MG TABLET. PO SCH (21:00)
== END 2016-05-29 17:00 | disposition home or self-care (01) | DRG 418 ==
LOC: ER 14:57 → 2 NORTH 16:00 → 4 NORTH 05-26 17:11
PROVIDERS: ADMIT Internal Medicine; ATTEND Internal Medicine
PROC: 30233L1 Transfusion of Nonautologous Fresh Plasma into Peripheral Vein, Percutaneous Approach (ICD-10-PCS; 2016-05-25)
PROC: 30233K1 Transfusion of Nonautologous Frozen Plasma into Peripheral Vein, Percutaneous Approach (ICD-10-PCS; 2016-05-25)
PROC: BF101ZZ Fluoroscopy of Bile Ducts using Low Osmolar Contrast (ICD-10-PCS; 2016-05-27)
PROC: 0FT44ZZ Resection of Gallbladder, Percutaneous Endoscopic Approach (ICD-10-PCS; principal; 2016-05-27 08:00)
DX: K80.10 Calculus of gallbladder with chronic cholecystitis without obstruction (principal); N13.8 Other obstructive and reflux uropathy; I12.9 Hypertensive chronic kidney disease with stage 1 through stage 4 chronic kidney disease, or unspecified chronic kidney disease; E87.6 Hypokalemia; E78.5 Hyperlipidemia, unspecified; F32.9 Major depressive disorder, single episode, unspecified; G89.29 Other chronic pain; I48.2 Chronic atrial fibrillation; J45.909 Unspecified asthma, uncomplicated; K21.9 Gastro-esophageal reflux disease without esophagitis; K59.00 Constipation, unspecified; N18.2 Chronic kidney disease, stage 2 (mild); Z96.642 Presence of left artificial hip joint; Z96.651 Presence of right artificial knee joint; M16.11 Unilateral primary osteoarthritis, right hip; M48.06 Spinal stenosis, lumbar region; M54.5 Low back pain; F41.9 Anxiety disorder, unspecified; D63.8 Anemia in other chronic diseases classified elsewhere; M25.532 Pain in left wrist; M25.531 Pain in right wrist; Z79.01 Long term (current) use of anticoagulants; Z80.0 Family history of malignant neoplasm of digestive organs; Z83.3 Family history of diabetes mellitus; Z87.891 Personal history of nicotine dependence; N40.1 Benign prostatic hyperplasia with lower urinary tract symptoms
CPT/HCPCS: 36415; 71010; 74300; 76705; 78226; 80048; 80053; 80076; 82248; 83690; 83880; 84484; 85027; 85610; 86850; 86900; 86901; 86927; 88304; 93005; 96374; 96375; A9537; C1769; C1782; J0360; J0690; J1100; J1170; J1610; J2060; J2250; J2270; J2370; J2405; J2704; J2710; J2805; J3010; J3430; J3490; J7030; J7120; P9017; Q9967; S0028

== ENCOUNTER → 2016-07-24 | Outpatient (CLI) | payer MEDICARE, OTHER ==
[~2016-07-24] MED LIST changes: +CHOL10003 PO; +HYDR200T5 PO; +POLY255P PO; +WARF1TAB PO
[2016-07-24 15:23] LABS: BASO % 1 % (0-3); EOS % 2 % (0-3); HEMATOCRIT 39.1 % (39.0-53.0); HEMOGLOBIN 13.2 g/dL (13.0-17.5); LYMPH # 1.4 x10^3/uL (1.0-4.8); LYMPH % 20 % (24-48); MEAN CORPUSCULAR HEMOGLOBIN 29 pg (25-35); MEAN CORPUSCULAR HGB CONC 34 g/dL (31-37); MEAN CORPUSCULAR VOLUME 85 fL (79-100); MONO % 10 % (0-9); NEUT % 68 % (31-73); PLATELET COUNT 169 x10^3/uL (140-400); RED BLOOD COUNT 4.59 x10^6/uL (4.30-5.70); RED CELL DISTRIBUTION WIDTH 15.8 % (11.5-14.5)
[2016-07-24 15:25] LABS: BILIRUBIN,URINE NEGATIVE (NEG); GLUCOSE,URINE NEGATIVE (NEG); NITRITE,URINE NEGATIVE (NEG); PROTEIN,URINE NEGATIVE (NEG-TRACE); UROBILINOGEN,URINE 0.2 mg/dL (0.2 mg/dL)
[2016-07-24 15:33] LABS: BACTERIA,URINE 0 /HPF (0-FEW); RBC,URINE 0 /HPF (0-2); SQUAMOUS EPITHELIAL CELL,UR OCC /LPF; WBC,URINE RARE /HPF (0-4)
[2016-07-24 15:33] LABS: INR 1.9 (0.8-1.1); PROTHROMBIN TIME PATIENT 20.7 SEC (11.7-14.0)
[2016-07-24 15:42] LABS: ALBUMIN 3.5 g/dL (3.4-5.0); CALCIUM 8.5 mg/dL (8.5-10.1); CREATININE 0.8 mg/dL (0.7-1.3); GFR 95.3; POTASSIUM 3.8 mmol/L (3.5-5.1)
--- NOTE | 2016-07-24 16:06 | RAD ---
Indication anticipated hip surgery. Preprocedure study. PA and lateral views of the chest were obtained. Comparison is made to an examination 05/25/2016. Heart size is at the upper limits of normal but similar. There is mild hyperinflation of the lungs. The pulmonary vasculature is normal. The lungs are clear. A significant change when compared to the previous exam is not seen. IMPRESSION: No acute finding. No significant change
== END | disposition home or self-care (01) ==
LOC: SURGPAT 13:23
PROVIDERS: ATTEND Orthopaedic Surgery
DX: Z01.818 Encounter for other preprocedural examination (principal)
CPT/HCPCS: 36415; 71020; 80048; 81001; 82040; 85027; 85610; 85651; 85730; 87641

== ENCOUNTER 2016-08-04 07:30 | Inpatient (IN) | payer MEDICARE, OTHER ==
[~2016-08-04] VITALS: Ht 180.3 cm; Wt 99.8 kg
[2016-08-04] VITALS (7 sets, daily range): BP systolic 146–179; BP diastolic 72–108
[~2016-08-04 07:30] MED LIST changes: +CELECOXIB 200 MG CAPSULE. PO PRN; +HYDROcodone/APAP 7.5/325MG 1 TAB TABLET PO PRN; +HYDROmorphone 2 MG/ML VIAL IV PRN; +IV RINGERS,LACTATED 1000ML 1,000 ML IV SCH; +LIDOCAINE 1% 1 ML SYRINGE. ID PRN; +MORPHINE SULFATE 2 MG/ML DISP.SYRIN. IV PRN; +MORPHINE SULFATE 5 MG, KETOROLAC TROMETHAMINE 30 MG, ROPIVacaine 0.5% PF 60 ML, EPINEPH... INT ART ONE; +ONDANSETRON PF 4 MG/2 ML VIAL. IV PRN; -POTA10TA10 PO; +POTA10TA12 PO; +PROCHLORPERAZINE 10 MG/2 ML VIAL. IV PRN; +TRANEXAMIC ACID 1,000 MG in IV NORMAL SALINE 50ML 50 ML INJ ONE; +WARF-78 PO; -WARF1TAB PO; +WARF1TAB74 PO; -WARF5TAB PO; +fentaNYL PF VIAL 100 MCG/2 ML VIAL IV PRN
[2016-08-04] MEDS ORDERED: TRANEXAMIC ACID 1,000 MG in IV NORMAL SALINE 50ML 50 ML INJ ONE (08:00)
[2016-08-04] MEDS ORDERED: CELE200C PO (08:38)
[2016-08-04] MEDS ORDERED: ROCURONIUM 50 MG/5 ML VIAL. ONE (08:38)
[2016-08-04] MEDS ORDERED: FAMOTIDINE 20 MG/2 ML VIAL ONE (08:54)
[2016-08-04] MEDS ORDERED: ONDANSETRON PF 4 MG/2 ML VIAL. ONE ×2 (08:54→16:17)
[2016-08-04] MEDS ORDERED: PROPOFOL 20 ML IV ONE ×3 (08:54→14:28)
[2016-08-04] MEDS ORDERED: DEXAMETHASONE SOD PHOS 20 MG/5 ML VIAL. ONE (08:54)
[2016-08-04] MEDS ORDERED: LIDOCAINE 2% 100 MG/5 ML SYRINGE. ONE (08:54)
[2016-08-04] MEDS ORDERED: fentaNYL PF VIAL 100 MCG/2 ML VIAL ONE (08:55)
[2016-08-04] MEDS ORDERED: MIDAZOLAM HCL/PF 2 MG/2 ML VIAL. ONE (09:12)
[2016-08-04 09:17] LABS: INR 1.2 (0.8-1.1); PROTHROMBIN TIME PATIENT 14.6 SEC (11.7-14.0)
[2016-08-04] MEDS ORDERED: BUPIVACAINE MPF 0.5% 30 ML VIAL. ONE (09:18)
[2016-08-04] MEDS ORDERED: SEVOFLURANE > 120 MINUTES. IH ONE ×2 (10:08→16:40)
[2016-08-04] MEDS ORDERED: ePHEDrine PF IN SALINE 50 MG/5 ML DISP.SYRIN IV ONE (10:08)
[2016-08-04] MEDS ORDERED: MORPHINE SULFATE 10 MG/ML VIAL. ONE (10:40)
[2016-08-04] MEDS ORDERED: 0.9 % SODIUM CHLORIDE 50 ML VIAL. IJ ONE (10:40)
--- NOTE | 2016-08-04 12:01 | HP ---
ADMIT DATE: 08/04/2016 HISTORY OF PRESENT ILLNESS: The patient is well known to me from previous total knee arthroplasty. He has been having ongoing right hip pain as well inhibiting his recovery somewhat, but he had a recent fall prior to a late June clinic visit. It hurt his ribs on the right side. Knee is doing well, but his hip is certainly much more aggravated. He is advancing well on his physical therapy. We had previously discussed the possibility of total hip arthroplasty, and he really wants that on a more urgent basis due to the increased pain and limitations in his rehabilitation. PAST SURGICAL HISTORY: Significant for a left total hip arthroplasty many years ago. The only problem there is some trochanteric bursitis which was injected previously with good results. In addition includes back surgery, cardioversion, cholecystectomy in May 2016, and right knee arthroplasty in March 2016. REVIEW OF SYSTEMS: Significant for his right-sided rib pain and increased hip pain. PAST MEDICAL HISTORY: Significant for atrial fibrillation, hypertension, hyperlipidemia, BPH, and asthma. FAMILY HISTORY: Significant for father with diabetes. MEDICATIONS: List is reviewed. His Coumadin was stopped 5 days ago. ALLERGIES: He has no known drug allergies. PHYSICAL EXAMINATION: VITAL SIGNS: Per admission sheet. HEENT: Atraumatic, normocephalic. HEART: Irregularly irregular. LUNGS: Clear to auscultation bilaterally. ABDOMEN: Benign. EXTREMITIES: Examination of the right hip reveals decreased range of motion in all planes, pain on extremes of range of motion. Leg lengths are very nearly equal. Well-healed incision from total knee arthroplasty on the right with good range of motion and stability. Well-healed hip incision from previous hip arthroplasty on the left as well. Minimal tenderness over the trochanteric bursa at present. Intact motor function, distal pulses, sensation, reflexes, and skin in both lower extremities throughout. IMAGING: X-rays of the right hip show [id number] degenerative changes present. IMPRESSION: Degenerative joint disease of right hip and right hip pain. TREATMENT PLAN: I had previously gone over with him the risks, benefits, and postoperative course of the total hip arthroplasty. He is familiar with the process previously. We are going to ____ the difference at this point is an anterior approach to try to hopefully decrease his recovery time and risk for dislocation. He is also familiar with the risks of leg length inequality, infection, nerve or blood vessel damage, medical or other anesthetic complications among others. All of his questions were answered. He wants to proceed with operative evaluation and treatment, which will include [facility] admission to follow. GRCAIA CERVANTES MD DR: ALEJANDRO/berna JOB#: [id number] / [id number]
[2016-08-04] MEDS ORDERED: NEOSTIGMINE METHYLSULFATE 5 MG/5 ML SYRINGE. ONE (12:19)
[2016-08-04] MEDS ORDERED: GLYCOPYRROLATE 1 MG/5 ML VIAL. ONE (12:19)
[2016-08-04] MEDS ORDERED: HYDROcodone/APAP 7.5/325MG 1 TAB TABLET PO PRN (12:45)
[2016-08-04] MEDS ORDERED: ACETAMINOPHEN 325 MG TABLET. PO PRN (12:45)
[2016-08-04] MEDS ORDERED: traMADol 50 MG TABLET PO PRN ×2 (12:45)
[2016-08-04] MEDS ORDERED: diphenhydrAMINE 50 MG/ML VIAL IV PRN (12:45)
[2016-08-04] MEDS ORDERED: DEXTROSE 50% 25 GM / 50ML DISP.SYRIN. IV PRN (12:45)
[2016-08-04] MEDS ORDERED: ZOLPIDEM 5 MG TABLET. PO PRN (12:45)
[2016-08-04] MEDS ORDERED: MORPHINE SULFATE 2 MG/ML DISP.SYRIN. IV PRN (12:45)
[2016-08-04] MEDS ORDERED: HYDROcodone/APAP 10/325 1 TAB TABLET PO PRN (12:45)
[2016-08-04] MEDS ORDERED: CALCIUM CARBONATE 500 MG TAB.CHEW PO PRN (12:45)
[2016-08-04] MEDS ORDERED: fentaNYL PF VIAL 100 MCG/2 ML VIAL IV PRN ×2 (12:45)
[2016-08-04] MEDS ORDERED: MORPHINE SULFATE 4 MG/ML DISP.SYRIN. IV PRN (12:45)
[2016-08-04] MEDS ORDERED: MORPHINE SULFATE 10 MG/ML VIAL. IV PRN (12:45)
[2016-08-04] MEDS ORDERED: 0.9 % SODIUM CHLORIDE 10 ML DISP.SYRIN. IV PRN (12:45)
[2016-08-04] MEDS ORDERED: PROCHLORPERAZINE 10 MG/2 ML VIAL. IV PRN (12:45)
--- NOTE | 2016-08-04 12:51 | PDOC ---
BRIEF OPERATIVE NOTE Date: August 04, 2016 Pre-Op Diagnosis djd right hip Post-Op Diagnosis same Procedure Performed right total hip arthroplasty Surgeon Osmel Barnett Anesthesia Type: General Blood Loss 350cc Specimens Obtained femoral head to pathology Findings above Complications none GRACIA CERVANTES MD August 04, 2016 12:50
[2016-08-04] MEDS: fentaNYL PF VIAL 100 MCG/2 ML VIAL IV PRN ×4 (13:12→17:49)
--- NOTE | 2016-08-04 14:26 | RAD ---
Portable pelvis, 08/04/2016: History: Postop evaluation, right hip arthroplasty Bilateral total hip prostheses are in place. The right hip prosthesis is dislocated. The femoral head component is displaced proximally and laterally relative to the acetabular component. Streaky collections of gas in the soft tissues of the right hip are presumably on a postoperative basis. A surgical drain overlies the right hip. There is no evidence of a retained surgical instrument, needle or radiopaque sponge on this single view. IMPRESSION: Dislocated right total hip prosthesis Note: The findings were called to the patient's nurse in the recovery room at 2:20 PM on 08/04/2016.
[2016-08-04] MEDS ORDERED: VASOPRESSIN 20 UNIT/ML VIAL. ONE (14:53)
[2016-08-04] MEDS: LABETALOL 20 MG/4 ML DISP.SYRIN. IVP PRN ×4 (17:47→18:31)
[2016-08-04] MEDS ORDERED: WARFARIN 7.5 MG TABLET. PO ONE (20:00)
[2016-08-04] MEDS: HYDROXYCHLOROQUINE 200 MG TABLET PO SCH (20:11)
[2016-08-04] MEDS: MONTELUKAST SODIUM 10 MG TABLET. PO SCH (20:11)
[2016-08-04] MEDS: TAMSULOSIN 0.4 MG CAP.ER.24H. PO SCH (20:12)
[2016-08-04] MEDS: CELECOXIB 200 MG CAPSULE. PO SCH (20:12)
[2016-08-04] MEDS: FERROUS SULFATE 325 MG TABLET. PO SCH (20:15)
[2016-08-04] MEDS: ATORVASTATIN CALCIUM 10 MG TABLET. PO SCH (20:15)
[2016-08-04] MEDS: LOSARTAN POTASSIUM 50 MG TABLET. PO SCH (20:15)
[2016-08-04] MEDS: FINASTERIDE 5 MG TABLET. PO SCH (20:26)
[2016-08-04] MEDS: oxyCODONE/APAP 5/325 1 TAB TABLET PO PRN (20:26)
[2016-08-04] MEDS: IV DEXTROSE 5 %-0.45 % NACL 1,000 ML IV SCH ×2 (21:48→22:43)
[2016-08-05 03:07] VITALS: BP 145/88
[2016-08-05] MEDS: oxyCODONE/APAP 5/325 1 TAB TABLET PO PRN ×2 (04:33→22:34)
--- NOTE | 2016-08-05 05:25 | ACF ---
Admission Forms Criteria MUSCULOSKELETAL DISEASE GRG Clinical Indications for Admission to Inpatient Care (Place 'X' for any and all applicable criteria): Hospital admission is needed for appropriate care of the patient because of 1 or more of the following: [ ]I. Fracture, dislocation, or other musculoskeletal injury requiring inpatient care(medical) as indicated by 1 or more of the following(4)(5)(6)(7) [ ]a) Vertebral fracture requiring observation for instability or neurologic compromise (8) [ ]b) Compartment syndrome (proven or cannot be ruled out during observation level of care) (9) [ ]c) Limb-threatening injury [ ]d) Major injury requiring inpatient stabilization such as traction initiation or external fixation before internal fixation or closure of complex or open fracture [ ]e) Major injury requiring inpatient treatment after emergency or observation level care (as appropriate) [ ]f) Severe pain requiring acute inpatient management [ ]g) Injury with suspicion of abuse or neglect (eg., child, dependent elderly) [ ]II. Newly diagnosed or suspected bone, joint, or orthopedic device infection (e.g., osteomyelitis, septic arthritis) needing 1 or more of the following(1)(2)(3) [ ]a) IV antibiotics that cannot be initiated in other than inpatient setting (e.g., patient too unstable or home infusion not available) [ ]b) Device removal or replacement [ ]c) Bone or soft tissue debridement [ ]d) Joint drainage (drain placement or repetitive aspirations) [ ]III. Severe rheumatologic disease (e.g., systemic lupus erythematosus, rheumatoid arthritis) with complications or comorbidities (Also use Optimal Recovery Care Criteria or General Recovery Criteria as appropriate on the basis of predominant condition), including 1 or more of the following( 10)(11)(12)(13) [ ]a) Severe infection (e.g., BAR WELDER infection, sepsis) (14) [ ]b) Respiratory complications, including 1 or more of the following : [ ]i) Pleural effusion with respiratory compromise [ ]ii) Pulmonary hypertension with congestive failure [ ]iii) Respiratory failure [ ]iv) Pulmonary hemorrhage (15) [ ]c) Hematologic disease, including 1 or more of the following: [ ]i) Coagulopathy with bleeding [ ]ii) Thrombosis with hypercoagulable state [ ]iii) Thrombotic thrombocytopenic purpura [ ]d) Cerebritis with seizures, psychosis, or other severe abnormalities [ ]e) Vertebral destruction with monitoring needed for cervical myelopathy& possible respiratory compromise [ ]f) Exacerbation that requires inpatient treatment (e.g., intravenous immunosuppression) (16) [ ]g) Acute renal failure [ ]h) Cerebritis with seizures, psychosis, Altered mental status, or other neurologic abnormalities [ ]i) Pericardial effusion with tamponade [ ]j) Vertebral destruction, with monitoring needed for cervical myelopathy and possible respiratory compromise [ ]IV. Severe vasculitis with complications or comorbidities (Also use Optimal Recovery Care Criteria General Recovery Criteria as appropriate on the basis of predominant condition), including 1 or more of the following(11)(12)(17)(18)(19)(20) [ ]a) Exacerbation that requires inpatient treatment (e.g., intravenous immunosuppression) (19)(21) [ ]b) Pulmonary hemorrhage (15) [ ]c) BAR WELDER vasculitis with seizures, psychosis, Altered mental status that is severe or persistent, or other severe abnormalities (22) [ ]d) Cerebral infarction [ ]e) Gastrointestinal ischemia [ ]f) Gangrene or threatened amputation [ ]g) Renal failure (16) [ ]h) Other significant complications of vasculitis ( eg., tissue or organ ischemia, organ dysfunction ) [ ]V. Severe myopathy as indicated by 1 or more of the following (28)(29) [ ]a) New onset of airway compromise or inability to swallow [ ]b) Respiratory deterioration with observation needed for impending respiratory failure [ ]c) Exacerbation that requires inpatient treatment (e.g., intravenous immunosuppression) [ ]. Severe crystal gout (arthropathy) indicated by 1 or more of the following (23)(24) [ ]a) Severe pain requiring acute inpatient management [ ]b) Exacerbation that requires inpatient treatment (e.g., intravenous treatment) [ ]VII.Rhabdomyolysis and 1 or more of the following (25)(26)(27) [ ]a) Acute renal failure [ ]b) Need for intravenous hydration after emergency or observation level care (as appropriate) [ ]c) Inability to maintain oral hydration [ ]d) Change in mental status [ ]e) Electrolyte abnormality that remains after emergency or observation level care (as appropriate) [ ]VIII Post amputation complication, as indicated by ANY ONE of the following [ ]a) Infection [ ]b) Dehiscence [ ]c) Myodesis failure [X]IX. Severe pain requiring acute inpatient management due to musculoskeletal condition [ ]X. Musculoskeletal Disease and ALL of the following: [ ]a) Symptom or finding for which emergency and observation care have failed or are not considered appropriate (Use General Criteria: Observation Care as appropriate) [ ]b) Presence of ANY ONE of the following [ ]i) A General Admission Criteria [ ]ii) A Pediatric General Admission Criteria The original [facility] [employer] content created by [facility] [employer] has been revised. The portions of the content which have been revised are identified through the use of italic text or in bold, and [facility] has neither reviewed nor approved the modified material. All other unmodified content is copyright [facility]. Please see references footnoted in the original [facility] edition 2016 Admission Criteria Met?: Yes KYARA VARGHESE August 05, 2016 05:25
[2016-08-05] MEDS ORDERED: MAGNESIUM HYDROXIDE 2,400 MG/30 ML ORAL.SUSP. PO PRN (06:00)
[2016-08-05 06:26] LABS: INR 1.3 (0.8-1.1); PROTHROMBIN TIME PATIENT 15.2 SEC (11.7-14.0)
[2016-08-05 06:29] VITALS: BP 159/92
[2016-08-05] MEDS: CHOLECALCIFEROL (VITAMIN D3) 1,000 UNIT TABLET PO SCH (08:11)
[2016-08-05] MEDS: SENNOSIDES/DOCUSATE 8.6/50MG TABLET. PO SCH (08:12)
[2016-08-05] MEDS: FERROUS SULFATE 325 MG TABLET. PO SCH ×2 (08:12→16:34)
[2016-08-05] MEDS: MULTIVITAMIN with MINERAL TABLET. PO SCH (08:12)
[2016-08-05] MEDS: CELECOXIB 200 MG CAPSULE. PO SCH ×2 (08:12→21:36)
[2016-08-05] MEDS: HYDROXYCHLOROQUINE 200 MG TABLET PO SCH ×2 (08:12→21:36)
[2016-08-05] MEDS: MORPHINE SULFATE 4 MG/ML DISP.SYRIN. IV PRN ×2 (08:13→18:37)
--- NOTE | 2016-08-05 08:33 | PDOC2 ---
SLICK RUTHERFORD ENERGY RISK MANAGEMENT ANALYST 08/05/16 0833: CONSULT Date of Consult Date of Consult DATE: 08/05/16 TIME: 08:30 Reason for Consult Reason for Consult: medical management Referring Physician Referring Physician: Dr. Bolivar Identification/Chief Complaint Chief Complaint OA R hip with THR 08/04/16 Source Source: Chart review, Patient History of Present Illness Reason for Visit: Chronic OA R hip with progressive pain and mobility impaired due to pain. Past Medical History Cardiovascular: AFIB, HTN, Hyperlipidemia Pulmonary: Asthma GI: Constipation Heme/Onc: Anemia NOS, Other Psych: Anxiety Musculoskeletal: low back pain (DDD LS ), Osteoarthritis (R hip) Rheumatologic: Rheumatoid arthritis Renal/: Chronic renal insuff (CKD II ), Benign prostatic enlarg. ( obstructive ) Past Surgical History Past Surgical History: Cholecystectomy, Total hip replacement (L hip), Total knee replacement (R 2016), Tonsillectomy, Other (hemilaminectomy LS) Family History Family History: Diabetes Social History No ALCOHOL: occassional Drugs: None Lives: with Family Current Problem List Problem List Problems Medical Problems: (1) Degenerative joint disease of right hip Status: Acute Current Medications Current Medications Current Medications Morphine Sulfate/ Ketorolac Tromethamine/ Ropivacaine/ Epinephrine HCl/ Sodium Chloride (Toradol/Naropin 0.5%/Adrenalin/Iv Sodium Chloride 0.9% 100ml) 100 ml @ 100 mls/hr 1X PERIOP ONCE INT ART Last administered on 08/04/16 10:17; Start 08/04/16 at 06:00; Stop 08/04/16 at 06:59; Status DC Ondansetron HCl (Zofran) 4 mg PRN Q6HRS PRN IV NAUSEA/VOMITING; Start 08/04/16 at 07:00; Stop 08/05/16 at 06:59; Status DC Fentanyl Citrate (Fentanyl 2ml Vial) 25 mcg PRN Q5MIN PRN IV MILD PAIN; Start 08/04/16 at 07:00; Stop 08/05/16 at 06:59; Status DC Fentanyl Citrate (Fentanyl 2ml Vial) 50 mcg PRN Q5MIN PRN IV MODERATE PAIN Last administered on 08/04/16 17:49; Start 08/04/16 at 07:00; Stop 08/05/16 at 06: 59; Status DC Morphine Sulfate 1 mg 1 mg PRN Q10MIN PRN IV SEVERE PAIN; Start 08/04/16 at 07: 00; Stop 08/05/16 at 06:59; Status DC Lactated Ringer's (Iv Lactated Ringers) 1,000 ml @ 0 mls/hr Q0M IV Last administered on 08/04/16 17:34; Start 08/04/16 at 07:00; Stop 08/04/16 at 18:59; Status DC Lidocaine HCl 2 ml PRN 1X PRN ID PRIOR TO IV START; Start 08/04/16 at 07:00; Stop 08/05/16 at 06:59; Status DC Hydromorphone HCl (Dilaudid) 0.5 mg PRN Q10MIN PRN IV SEV PAIN, Second choice; Start 08/04/16 at 07:00; Stop 08/05/16 at 06:59; Status DC Prochlorperazine Edisylate 5 mg 5 mg PACU PRN PRN IV NAUSEA, MRX1 Last administered on 08/04/16 17:32; Start 08/04/16 at 07:00; Stop 08/05/16 at 06:59; Status DC Tranexamic Acid 1000 mg/Sodium Chloride 60 ml @ 60 mls/hr 1X PERIOP ONCE INJ Last administered on 08/04/16 10:10; Start 08/04/16 at 06:00; Stop 08/04/16 at 06: 59; Status DC Tranexamic Acid/ Sodium Chloride (Cyklokapron/Iv Sodium Chloride 0.9% 50ml) 60 ml @ 60 mls/hr 1X PERIOP ONCE INJ Last administered on 08/04/16 12:20; Start 08/04/16 at 08:00; Stop 08/04/16 at 08:59; Status DC Celecoxib (CeleBREX) 400 mg 1X PREOP PRN PO PER PROTOCOL Last administered on 09:04; Start 08/04/16 at 06:00; Stop 08/04/16 at 18:00; Status DC Acetaminophen/ Hydrocodone Bitart 2 tab 2 tab 1X PREOP PRN PO PER PROTOCOL; Start 08/04/16 at 06:00; Stop 08/04/16 at 18:00; Status DC Cefazolin Sodium/ Dextrose (Ancef 2gm Premix) 50 ml @ 100 mls/hr 1X PREOP PRN IV PRIOR TO PROCEDURE Last administered on 08/04/16t 09:55; Start 08/04/16 at 06: 00; Stop 08/04/16 at 18:00; Status DC Rocuronium [place] (Zemuron) 50 mg STK-MED ONCE .ROUTE ; Start 08/04/16 at 08:38 ; Stop 08/04/16 at 08:39; Status DC Lidocaine HCl (Lidocaine HCl 2% Abboject) 100 mg STK-MED ONCE .ROUTE ; Start 08/04/16 at 08:54; Stop 08/04/16 at 08:55; Status DC Dexamethasone Sodium Phosphate 20 mg 20 mg STK-MED ONCE .ROUTE ; Start 08/04/16 at 08:54; Stop 08/04/16 at 08:55; Status DC Propofol (Diprivan) 20 ml @ As Directed STK-MED ONCE IV ; Start 08/04/16 at 08:54 ; Stop 08/04/16 at 08:55; Status DC Ondansetron HCl (Zofran) 4 mg STK-MED ONCE .ROUTE ; Start 08/04/16 at 08:54; Stop 08/04/16 at 08:55; Status DC Famotidine (Pepcid) 20 mg STK-MED ONCE .ROUTE ; Start 08/04/16 at 08:54; Stop 08/04/16 at 08:55; Status DC Fentanyl Citrate (Fentanyl 2ml Vial) 100 mcg STK-MED ONCE .ROUTE ; Start at 08:55; Stop 08/04/16 at 08:56; Status DC Midazolam HCl (Versed) 2 mg STK-MED ONCE .ROUTE ; Start 08/04/16 at 09:12; Stop 08/04/16 at 09:13; Status DC Bupivacaine HCl (Sensorcaine Mpf 0.5%) 30 ml STK-MED ONCE .ROUTE ; Start at 09:18; Stop 08/04/16 at 09:19; Status DC Ephedrine Sulfate 50 mg STK-MED ONCE IV ; Start 08/04/16 at 10:08; Stop 08/04/16 at 10:09; Status DC Sevoflurane (Ultane) 90 ml STK-MED ONCE IH ; Start 08/04/16 at 10:08; Stop at 10:09; Status DC Morphine Sulfate 10 mg STK-MED ONCE .ROUTE ; Start 08/04/16 at 10:40; Stop at 10:41; Status DC Sodium Chloride (Sodium Chloride) 50 ml STK-MED ONCE IJ ; Start 08/04/16 at 10:40 ; Stop 08/04/16 at 10:41; Status DC Glycopyrrolate (Robinul) 1 mg STK-MED ONCE .ROUTE ; Start 08/04/16 at 12:19; Stop 08/04/16 at 12:20; Status DC Neostigmine Methylsulfate 5 mg STK-MED ONCE .ROUTE ; Start 08/04/16 at 12:19; Stop 08/04/16 at 12:20; Status DC Acetaminophen/ Hydrocodone Bitart (Lortab 7.5/325) 1 tab PRN Q3HRS PRN PO PAIN ; Start 08/04/16 at 12:45 Acetaminophen/ Hydrocodone Bitart (Lortab 10/325) 1 tab PRN Q3HRS PRN PO PAIN; Start 08/04/16 at 12:45 Tramadol HCl (Ultram) 50 mg PRN QID PRN PO PAIN; Start 08/04/16 at 12:45 Oxycodone/ Acetaminophen (Percocet 5/325) 1 tab PRN Q3HRS PRN PO PAIN Last administered on 08/05/16 04:33; Start 08/04/16 at 12:45 Oxycodone/ Acetaminophen (Percocet 7.5/ 325) 1 tab PRN Q3HRS PRN PO PAIN; Start 08/04/16 at 12:45 Tramadol HCl (Ultram) 100 mg PRN Q3HRS PRN PO PAIN; Start 08/04/16 at 12:45 Morphine Sulfate 2 mg PRN Q1HR PRN IV PAIN; Start 08/04/16 at 12:45 Fentanyl Citrate (Fentanyl 2ml Vial) 25 mcg PRN Q1HR PRN IV PAIN; Start at 12:45 Diphenhydramine HCl (Benadryl) 25 mg PRN Q6HRS PRN IV ITCHING; Start 08/04/16 at 12:45 Warfarin Sodium (Coumadin) 7.5 mg 1X ONCE PO Last administered on 08/04/16 20: 12; Start 08/04/16 at 20:00; Stop 08/04/16 at 20:02; Status DC Warfarin Sodium (Coumadin Per Pharmacy) 1 each PRN DAILY PRN MC SEE COMMENTS; Start 08/04/16 at 12:45 Multivitamins (Thera M Plus) 1 tab DAILY PO Last administered on 08/05/16 08:12 ; Start 08/05/16 at 09:00 Senna/Docusate Sodium (Senna Plus) 1 tab DAILY PO Last administered on 08:12; Start 08/05/16 at 09:00 Ferrous Sulfate (Feosol) 325 mg BIDWMEALS PO Last administered on 08/05/16 08: 12; Start 08/04/16 at 17:00 Celecoxib 200 mg 200 mg BID PO Last administered on 08/05/16 08:12; Start at 21:00 Dextrose/Sodium Chloride (Iv D5% - 1/2 NS) 1,000 ml @ 100 mls/hr Q10H IV ; Start 08/04/16 at 12:43 Magnesium Hydroxide (Milk Of Magnesia) 2,400 mg 1X PRN PRN PO CONSTIPATION; Start 08/05/16 at 06:00; Stop 08/06/16 at 05:59 Bisacodyl (Dulcolax Supp) 10 mg 1X PRN PRN [place] CONSTIPATION; Start 08/05/16 at 16 :00; Stop 08/06/16 at 15:59 Acetaminophen (Tylenol) 650 mg PRN Q4HRS PRN PO MILD PAIN / TEMP; Start at 12:45 Zolpidem Tartrate (Ambien) 5 mg PRN QHS PRN PO INSOMNIA, MAY REPEAT IN 1HR; Start 08/04/16 at 12:45 Calcium Carbonate/ Glycine (Tums) 500 mg PRN QID PRN PO INDIGESTION; Start 08/04 at 12:45 Morphine Sulfate 4 mg PRN Q1HR PRN IV PAIN Last administered on 08/05/16 08:13 ; Start 08/04/16 at 12:45 Morphine Sulfate 6 mg PRN Q1HR PRN IV PAIN; Start 08/04/16 at 12:45 Morphine Sulfate 8 mg 8 mg PRN Q1HR PRN IV PAIN; Start 08/04/16 at 12:45 Ketorolac Tromethamine/ Bupivacaine HCl/ Epinephrine HCl/ Miscellaneous (Toradol / Sensorcaine Mpf 0.25%/Adrenalin) 43.0 ml @ 258 mls/hr Q12H INT ART ; Start at 20:00; Stop 08/05/16 at 08:09; Status DC Sodium Chloride (Normal Saline Flush) 10 ml QSHIFT PRN IV AFTER MEDS AND BLOOD DRAWS; Start 08/04/16 at 12:45 Fentanyl Citrate (Fentanyl 2ml Vial) 50 mcg PRN Q1HR PRN IV PAIN; Start at 12:45 Prochlorperazine Edisylate (Compazine) 10 mg PRN Q4HRS PRN IV NAUSEA/VOMITING; Start 08/04/16 at 12:45 Dextrose 12.5 gm 12.5 gm PRN Q15MIN PRN IV SEE COMMENTS; Start 08/04/16 at 12:45 Cefazolin Sodium/ Dextrose (Ancef 2gm Premix) 50 ml @ 100 mls/hr Q6H IV Last administered on 08/05/16 08:11; Start 08/04/16 at 20:00; Stop 08/05/16 at 08:29; Status DC Atorvastatin Calcium (Lipitor) 10 mg QHS PO Last administered on 08/04/16 20:15 ; Start 08/04/16 at 21:00 Carvedilol (Coreg) 12.5 mg DAILY PO Last administered on 08/05/16 08:22; Start 08/05/16 at 09:00 Vitamin D (Vitamin D3) 1,000 unit DAILY PO Last administered on 08/05/16 08:11 ; Start 08/05/16 at 09:00 Finasteride (Proscar) 10 mg QHS PO Last administered on 08/04/16 20:26; Start 08/04/16 at 21:00 Hydroxychloroquine Sulfate (Plaquenil) 200 mg BID PO Last administered on 08:12; Start 08/04/16 at 21:00 Losartan Potassium (Cozaar) 50 mg QHS PO Last administered on 08/04/16 20:15; Start 08/04/16 at 21:00 Montelukast Sodium (Singulair) 10 mg HS PO Last administered on 08/04/16 20:11 ; Start 08/04/16 at 21:00 Tamsulosin HCl (Flomax) 0.8 mg QHS PO Last administered on 08/04/16 20:12; Start 08/04/16 at 21:00 Non-Formulary Medication 1 tab 1 tab DAILY PO ; Start 08/05/16 at 09:00; Status UNV Propofol 20 ml @ As Directed STK-MED ONCE IV ; Start 08/04/16 at 12:51; Stop 08/04 at 12:52; Status DC Propofol (Diprivan) 20 ml @ As Directed STK-MED ONCE IV ; Start 08/04/16 at 14:28 ; Stop 08/04/16 at 14:29; Status DC Vasopressin (Vasostrict) 20 unit STK-MED ONCE .ROUTE ; Start 08/04/16 at 14:53; Stop 08/04/16 at 14:54; Status DC Ondansetron HCl (Zofran) 4 mg STK-MED ONCE .ROUTE ; Start 08/04/16 at 16:17; Stop 08/04/16 at 16:18; Status DC Sevoflurane (Ultane) 90 ml STK-MED ONCE IH ; Start 08/04/16 at 16:40; Stop at 16:41; Status DC Labetalol HCl (Normodyne) 5 mg PACU PRN PRN IVP HYPERTENSION, SEE COMMENTS Last administered on 08/04/16 18:31; Start 08/04/16 at 17:45 Active Scripts Active Reported Celebrex (Celecoxib) 200 Mg Capsule 1 Cap PO 1X Hydroxychloroquine Sulfate 200 Mg Tablet 200 Mg PO BID Warfarin Sodium 7.5 Mg Tablet 7.5 Mg PO HS Vitamin D3 (Cholecalciferol (Vitamin D3)) 1,000 Unit Tablet 1 Tab PO DAILY Percocet 5-325 Mg Tablet (Oxycodone/Acetaminophen) 1 Each Tablet 1-2 Tab PO Q4- 6HRS Garlique (Garlic) 5,000 Mcg Tablet 5,000 Mcg PO DAILY Multivitamins (Multivitamin) 1 Each Tablet 1 Tab PO DAILY Krill Oil 1,000 Mg Softgel (Krill/Om3/Dha/Epa/Om6/Lip/Astx) 1 Each Capsule 1 Each PO DAILY Lipitor (Atorvastatin Calcium) 10 Mg Tablet 1 Tab PO QHS Montelukast Sodium Tablet (Montelukast Sodium) 10 Mg Tablet 1 Tab PO HS Finasteride 5 Mg Tablet 2 Tab PO QHS Losartan Potassium 50 Mg Tablet 50 Mg PO QHS Coreg (Carvedilol) 12.5 Mg Tablet 1 Tab PO DAILY Tamsulosin Hcl 0.4 Mg Cap.er.24h 0.8 Mg PO QHS Allergies Allergies: Coded Allergies: chlorhexidine (Verified Allergy, Intermediate, Rash, 08/04/16) ROS Review of System 14 point ROS with + post op pain R hip. Other sx reviewed and negative. PSYCHOLOGICAL ROS: YES: Anxiety Genitourinary: YES Other (h/o retention due to obstructive BPH ) Musculoskeletal: Yes Other (chronic LBP with h/o hemilaminectomy ) Physical Exam Physical Exam Pain R leg/hip controlled while in bed, when OOB pain severe LLE and could not step, had to slide foot/leg to chair to sit. General: Alert, Oriented X3, Cooperative, moderate distress HEENT: Atraumatic Lungs: Clear to auscultation, Normal air movement Heart: Regular rate, Normal S1, Normal S2 Abdomen: Normal bowel sounds, Soft, No tenderness Extremities: Other (swelling RLE with surgical dressing inplace R hip ) Neuro: Normal speech, Other (no acute focal neurological deficits noted ) Psych/Mental Status: Mental status NL, Mood NL MUSCULOSKELETAL: Other (surgical pain R hip ) Vitals VITALS Vital Signs Date Time Temp Pulse Resp B/P Pulse Ox O2 Delivery O2 Flow Rate FiO2 08/05/16 08:22 103 165/96 08/05/16 08:13 96 Room Air 08/05/16 06:29 97.6 18 2.0 97.6 Labs Labs Laboratory Tests Test 08/04/16 08:55 08/05/16 04:40 Prothrombin Time 14.6SEC (11.7-14.0) 15.2SEC (11.7-14.0) Prothromb Time International Ratio 1.2 (0.8-1.1) 1.3 (0.8-1.1) Activated Partial Thromboplast Time 35SEC (24-38) Laboratory Tests Test 08/04/16 08:55 08/05/16 04:40 Prothrombin Time 14.6SEC (11.7-14.0) 15.2SEC (11.7-14.0) Prothromb Time International Ratio 1.2 (0.8-1.1) 1.3 (0.8-1.1) Activated Partial Thromboplast Time 35SEC (24-38) Assessment/Plan Assessment/Plan IMPRESSION: 1. accelerated HTN 2. urine retention secondary to obstructive BPH 3. s/p R THR secondary to DJD with post op dislocation with open reduction. 4. anemia CD 5. anticoagulation therapy post THR 6. constipation 7. chronic LBP with h/o hemilaminectomy 8. anxiety 9. RA PLAN: accelerated HTN resume meds, monitor Obstructive BPH currently pryor placed post straight cath with 600cc urine obtained continue finasteride TKR continue pain meds PTOT rehab at discharge anticoag per pharmacy INR 08/05 1.3 Celebrex 200mg bid anemia CD HH pending DVT/GI ROBERT Warfarin PPI For further plan of care, please refer to the orders Thank you Dr. Bolivar for the opportunity to assist with Mr. Flowers's medical care post operative. BASSAM SMITH MD 08/05/16 1019: CONSULT Allergies Allergies: Coded Allergies: chlorhexidine (Verified Allergy, Intermediate, Rash, 08/04/16) Assessment/Plan Assessment/Plan Atrial fibrillation- coumadin. D/w patient ansd his . Accelerated hypertension- increase Coreg to 12.5 mg bid.may need Clonidine. The patient was seen and examined by me. Chart reviewed and plan of care formulated. Discussed with, reviewed and agree with OFFICE MACHINES SALES REPRESENTATIVE's notes, plan of care and orders with modifications as necessary. For more details regarding further plans, please refer to the orders. SLICK RUTHERFORD APRN August 05, 2016 08:33 BASSAM SMITH MD August 05, 2016 10:19
[2016-08-05] MEDS: IV DEXTROSE 5 %-0.45 % NACL 1,000 ML IV SCH ×2 (08:43→18:43)
[2016-08-05] MEDS ORDERED: NON FORMULARY ITEM (Multivitamin (Multivitamins) 1 TAB) PO SCH (09:00)
[2016-08-05] MEDS ORDERED: CARVEDILOL 12.5 MG TABLET. PO SCH (09:00)
[2016-08-05] MEDS: PANTOPRAZOLE 40 MG TABLET.DR. PO SCH (10:05)
[2016-08-05] MEDS: oxyCODONE/APAP 7.5/325 1 TAB TABLET PO PRN ×3 (10:06→19:37)
[2016-08-05 11:48] VITALS: BP 123/77
[2016-08-05 12:18] LABS: HEMOGLOBIN 11.5 g/dL (13.0-17.5)
[2016-08-05] MEDS ORDERED: WARFARIN 7.5 MG TABLET. PO ONE (16:00)
[2016-08-05] MEDS ORDERED: BISACODYL 10 MG SUPP.RECT. PR PRN (16:00)
[2016-08-05 17:00] VITALS: BP 126/74
--- NOTE | 2016-08-05 17:43 | PDOC ---
PROGRESS NOTES Subjective Subjective Problems overnight:hip sore and muscle spasm Objective Vital Signs Vital Signs Date Time Temp Pulse Resp B/P Pulse Ox O2 Delivery O2 Flow Rate FiO2 08/05/16 12:46 20 08/05/16 11:48 98.2 90 123/77 Room Air 98.2 08/05/16 11:00 96 2.0 Physical Exam incision c/d/i, neuro intact Labs Laboratory Tests Test 08/04/16 08:55 08/05/16 04:40 Prothrombin Time 14.6SEC (11.7-14.0) 15.2SEC (11.7-14.0) Prothromb Time International Ratio 1.2 (0.8-1.1) 1.3 (0.8-1.1) Activated Partial Thromboplast Time 35SEC (24-38) Hemoglobin 11.5g/dL (13.0-17.5) Hematocrit 35.0% (39.0-53.0) Mean Corpuscular Hemoglobin Concent 33g/dL (31-37) Laboratory Tests Test 08/05/16 04:40 Hemoglobin 11.5g/dL (13.0-17.5) Hematocrit 35.0% (39.0-53.0) Mean Corpuscular Hemoglobin Concent 33g/dL (31-37) Prothrombin Time 15.2SEC (11.7-14.0) Prothromb Time International Ratio 1.3 (0.8-1.1) Imaging postop xrays show excellent position of hip implants Assessment Assessment POD# [1], S/P [right total hip] Problems: Plan Plan of Care WBAT, no hip precautions Coumadin anticoagulation GRAICA CERVANTES MD August 05, 2016 17:43
[2016-08-05] MEDS: CARVEDILOL 12.5 MG TABLET. PO SCH (18:38)
[2016-08-05 19:00] VITALS: BP 144/79
[2016-08-05 21:00] VITALS: BP 142/90
[2016-08-05] MEDS: ATORVASTATIN CALCIUM 10 MG TABLET. PO SCH (21:35)
[2016-08-05] MEDS: MONTELUKAST SODIUM 10 MG TABLET. PO SCH (21:35)
[2016-08-05] MEDS: FINASTERIDE 5 MG TABLET. PO SCH (21:35)
[2016-08-05] MEDS: TAMSULOSIN 0.4 MG CAP.ER.24H. PO SCH (21:36)
[2016-08-05] MEDS: LOSARTAN POTASSIUM 50 MG TABLET. PO SCH (21:40)
[2016-08-06] MEDS: oxyCODONE/APAP 5/325 1 TAB TABLET PO PRN (02:26)
[2016-08-06] MEDS: IV DEXTROSE 5 %-0.45 % NACL 1,000 ML IV SCH ×2 (04:43→14:43)
[2016-08-06 07:00] VITALS: BP 151/96
[2016-08-06] MEDS: oxyCODONE/APAP 7.5/325 1 TAB TABLET PO PRN ×6 (07:00→23:40)
[2016-08-06] MEDS: CARVEDILOL 12.5 MG TABLET. PO SCH ×2 (07:00→17:53)
--- NOTE | 2016-08-06 07:15 | RAD ---
Right hip, single view, 08/05/2016: History: Postop pain Comparison is made to a study from 08/04/2016. The previously seen dislocation of the right hip prosthesis has been reduced. Alignment in this AP projection appears normal. No fracture is evident. There is no evidence of a retained surgical instrument, needle or radiopaque sponge. IMPRESSION: Satisfactory reduction of the dislocated right hip prosthesis.
[2016-08-06] MEDS: PANTOPRAZOLE 40 MG TABLET.DR. PO SCH (07:30)
[2016-08-06 07:43] LABS: CALCIUM 8.8 mg/dL (8.5-10.1); CREATININE 0.8 mg/dL (0.7-1.3); GFR 95.3; POTASSIUM 4.1 mmol/L (3.5-5.1)
[2016-08-06 08:03] LABS: INR 1.3 (0.8-1.1)
[2016-08-06] MEDS: MULTIVITAMIN with MINERAL TABLET. PO SCH (08:12)
[2016-08-06] MEDS: HYDROXYCHLOROQUINE 200 MG TABLET PO SCH ×2 (08:13→20:55)
[2016-08-06] MEDS: SENNOSIDES/DOCUSATE 8.6/50MG TABLET. PO SCH (08:13)
[2016-08-06] MEDS: FERROUS SULFATE 325 MG TABLET. PO SCH ×2 (08:13→17:04)
[2016-08-06] MEDS: CELECOXIB 200 MG CAPSULE. PO SCH ×2 (08:13→20:55)
[2016-08-06] MEDS: CHOLECALCIFEROL (VITAMIN D3) 1,000 UNIT TABLET PO SCH (08:13)
--- NOTE | 2016-08-06 08:29 | PDOC ---
CARLOSCatherineSLICK STALLWORTH CARDIOVASCULAR SURGEON 08/06/16 0829: IM PROGRESS NOTES- Subjective Subjective operative leg pain improved Objective Objective no distress, Vitals Vital Signs Date Time Temp Pulse Resp B/P (MAP) Pulse Ox O2 Delivery O2 Flow Rate FiO2 08/06/16 08:16 20 Room Air 08/06/16 07:00 97.3 100 151/96 (114) 96 97.3 08/05/16 11:00 2.0 Input & Output Intake and Output 08/06/16 07:00 Intake Total 1500 ml Output Total 400 ml Balance 1100 ml Intake Oral 1500 ml Output Urine Total 300 ml Drainage Total 100 ml # Voids 9 Physical Exam Physical Exam General appearance - alert,well appearing, and in no distress and oriented to person, place, and time Mental Status - alert, oriented to person, place, and time, affect appropriate to mood Head - normal Chest - clear to auscultation, no wheezes, rales or rhonchi, symmetric air entry Heart - S1 and S2 normal Abdomen - soft, nontender, nondistended, no masses or organomegaly Neurological - alert and oriented Musculoskeletal - no muscular tenderness noted Extremities - mild swelling RLE Skin - warm and dry Labs Laboratory Tests Test 08/04/16 08:55 08/05/16 04:40 08/06/16 04:20 Prothrombin Time 14.6 SEC (11.7-14.0) 15.2 SEC (11.7-14.0) 15.0 SEC (11.7-14.0) Prothromb Time International Ratio 1.2 (0.8-1.1) 1.3 (0.8-1.1) 1.3 (0.8-1.1) Activated Partial Thromboplast Time 35 SEC (24-38) Hemoglobin 11.5 g/dL (13.0-17.5) Hematocrit 35.0 % (39.0-53.0) Mean Corpuscular Hemoglobin Concent 33 g/dL (31-37) Sodium Level 139 mmol/L (136-145) Potassium Level 4.1 mmol/L (3.5-5.1) Chloride Level 102 mmol/L (98-107) Carbon Dioxide Level 31 mmol/L (21-32) Anion Gap 6 (6-14) Blood Urea Nitrogen 20 mg/dL (8-26) Creatinine 0.8 mg/dL (0.7-1.3) Estimated GFR (Cockcroft-Gault) 95.3 Glucose Level 96 mg/dL (70-99) Calcium Level 8.8 mg/dL (8.5-10.1) Laboratory Tests Test 08/06/16 04:20 Prothrombin Time 15.0 SEC (11.7-14.0) Prothromb Time International Ratio 1.3 (0.8-1.1) Sodium Level 139 mmol/L (136-145) Potassium Level 4.1 mmol/L (3.5-5.1) Chloride Level 102 mmol/L (98-107) Carbon Dioxide Level 31 mmol/L (21-32) Anion Gap 6 (6-14) Blood Urea Nitrogen 20 mg/dL (8-26) Creatinine 0.8 mg/dL (0.7-1.3) Estimated GFR (Cockcroft-Gault) 95.3 Glucose Level 96 mg/dL (70-99) Calcium Level 8.8 mg/dL (8.5-10.1) Meds Current Medications Bisacodyl (Dulcolax Supp) 10 mg 1X PRN PRN [place] CONSTIPATION; Start 08/05/16 at 16 :00; Stop 08/06/16 at 15:59 Carvedilol (Coreg) 12.5 mg [id number] PO Last administered on 08/06/16 07:00; Start 08/05/16 at 18:00 Carvedilol (Coreg) 12.5 mg DAILY PO Last administered on 08/05/16 08:22; Start 08/05/16 at 09:00; Stop 08/05/16 at 10:15; Status DC Multivitamins (Thera M Plus) 1 tab DAILY PO Last administered on 08/06/16 08:12 ; Start 08/05/16 at 09:00 Non-Formulary Medication 1 tab DAILY PO ; Start 08/05/16 at 09:00; Status UNV Pantoprazole Sodium (Protonix) 40 mg DAILYAC PO Last administered on 08/06/16 07:30; Start 08/05/16 at 09:30 Senna/Docusate Sodium (Senna Plus) 1 tab DAILY PO Last administered on 08:13; Start 08/05/16 at 09:00 Vitamin D (Vitamin D3) 1,000 unit DAILY PO Last administered on 08/06/16 08:13 ; Start 08/05/16 at 09:00 Warfarin Sodium (Coumadin) 7.5 mg 1X WARF ONCE PO Last administered on 16:34; Start 08/05/16 at 16:00; Stop 08/05/16 at 16:05; Status DC Assessment Assessment IMPRESSION: 1. accelerated HTN 2. urine retention secondary to obstructive BPH 3. s/p R THR secondary to DJD with post op dislocation with open reduction. 4. anemia CD 5. anticoagulation therapy post THR 6. constipation 7. chronic LBP with h/o hemilaminectomy 8. anxiety 9. RA PLAN: accelerated HTN resume meds, monitor Coreg increased to 12.5mg bid 08/05-minimal improvement ?clonidine -defer to Dr. Andrews Obstructive BPH currently pryor placed post straight cath with 600cc urine obtained continue finasteride TKR continue pain meds PTOT rehab at discharge anticoag per pharmacy INR 08/06 1.3 Celebrex 200mg bid anemia CD HH pending 08/05 Hgb 08/05 11.5 DVT/GI ROBERT Warfarin PPI For further plan of care, please refer to the orders Plan Plan For more details regarding further plans, please refer to the orders. BASSAM ANDREWS MD 08/06/16 0950: IM PROGRESS NOTES- Assessment Assessment BP is high but asymptomatic.continue to monitor.Pain control is improving. Voiding well. The patient was seen and examined by me. Chart reviewed and plan of care formulated. Discussed with, reviewed and agree with INSPECTOR FLOOR's notes, plan of care and orders with modifications as necessary. For more details regarding further plans, please refer to the orders. SLICK RUTHERFORD APRN August 06, 2016 08:29 BASSAM ANDREWS MD August 06, 2016 09:50
[2016-08-06 09:27] LABS: HEMATOCRIT 33.9 % (39.0-53.0); HEMOGLOBIN 11.5 g/dL (13.0-17.5)
--- NOTE | 2016-08-06 12:48 | OP ---
DATE OF SURGERY: 08/04/2016 PREOPERATIVE DIAGNOSIS: Degenerative joint disease of right hip. POSTOPERATIVE DIAGNOSIS: Degenerative joint disease of right hip. PROCEDURE: Right total hip arthroplasty. SURGEON: Dragan Bolivar M.D. ANESTHESIA: General. ESTIMATED BLOOD LOSS: 250 mL. COMPLICATIONS: Include a postoperative dislocation which required re-exploration. OPERATIVE INDICATIONS: The patient is known to me from previous right total knee arthroplasty that is going well through the rehabilitation process. He states now that he is very limited by the right hip pain, has had previous left total hip replacement and indicates that that pain is similar to what he had been going through before, significantly limiting his rehabilitation with sharp groin pain with activity, aching pain afterwards, worse on startup, somewhat better, but not absent with lack of activity. X-rays show [id number] degenerative change in the right hip. I had gone over with him as a review of the risks, benefits, postoperative course of the total hip arthroplasty including possibility of infection, nerve or blood vessel damage, leg length inequality, premature wear or loosening, instability, medical or other anesthetic complications among others. All his questions were answered. Consent was obtained and he agrees to proceed with operative evaluation and treatment. DESCRIPTION OF PROCEDURE: The patient was identified, procedure verified, patient placed in the supine position on operating table. After adequate amounts of general endotracheal anesthesia were administered, he was placed on the [place] table. All bony prominences were well padded, placed in traction boots and the right hip was prepped and draped in the standard sterile fashion. After timeout was performed, patient and procedure identified and verified. The hip was examined for leg length considerations under fluoroscopic guidance and an incision was made just lateral and distal to the anterior-superior iliac spine, extending obliquely down along the course of the tensor fasciae latae muscle. Dissection carried out down to the tensor fasciae latae and the fascia was split, the tensor muscle brought laterally. Interval between the tensor and the rectus was exploited and the anterior circumflex vessels were coagulated with the Aquamantys device. Overlying fat was excised. Joint capsule was exposed and split in a T fashion. Retractors were placed inside the capsule and femoral neck cut was made in a napkin-ring fashion under fluoroscopic guidance. The napkin ring bone was removed, femoral head was removed, somewhat pissed me off as had difficulty getting the correct screw to engage the bone in the femoral back, which pulled out. Nevertheless, femoral head was sized, acetabulum was prepared by removing contents of the fovea and labrum. The reaming was carried out up to a size 52. A size 54 cluster hole Continuum Marquis trabecular metal liner was placed in proper version and fixed with a single superiorly directed screw. A standard trial liner was then placed and the femur was then exposed further releasing the capsule while preserving the external rotators. The femur was then prepared with the box osteotome rat tail rasp and successive size broaches up to a size 5, which appeared to be well fitting and have excellent of the proximal femur and the diaphyseal area. Trial fitting was carried out and leg lengths were equalized with a -3.5 x 36 mm head and noted to have good stability and the trial components were then removed entirely, cross-linked 36-mm standard acetabular liner was impacted into place. Next, a size 5 Avenir stem was advanced and again noted to have excellent feel and stability. A +0 head length doubt the leg; therefore, a -3.5 was selected and stability, leg lengths, offset were all found to be restored. Thorough irrigation carried out with normal saline solution. The stability was verified in all planes including extension and external rotation. The Hemovac drain was placed as was the pain catheter. Pain catheter mixture was injected into the surrounding tissues and fascia was closed with #1 Vicryl suture, subcutaneous closure with 2-0 Vicryl, and skin closure with Monocryl suture. The sterile dressings were applied. The patient was returned to recovery room in stable condition having tolerated the procedure well. Postoperatively, he was very agitated as he was convinced that he could not pass any urine, whatsoever has had this difficulty in the past. He was thrashing around significantly in bed and trying to sit up and pulling his legs around. His postoperative x-ray actually showed a hip dislocation and I consented to admit that point for what it gone on, we would attempt a close reduction, possible open reduction with exploration, performance of any needed procedure and on return to the operating room, I was concerned that there may have been microscopic crack perhaps causing some subsidence. Incision was opened. Thorough irrigation carried out with normal saline solution. The hip was dislocated and there was no gross instability. However, I placed reinforcing cables above and below the lesser trochanter and removed the -3.5 head and again checked the stability of the stem and attempted further impaction of the stem, but did not appear to move or be unstable. The cables were tensioned, he was upsized to a +7 femoral head which, at that point, after the impaction procedure and the cabling, was found to slightly increase his leg length to restore his offset and resulted in excellent stability throughout. Thorough irrigation again carried out with normal saline solution. Closure accomplished with #1 Vicryl suture, subcutaneous buried Vicryl, subcuticular Monocryl, Steri-Strips and Mastisol placed with sterile dressings and returned to recovery room in stable condition. DRAGAN BOLIVAR MD DR: ALEJANDRO/berna JOB#: [id number] / [id number]
--- NOTE | 2016-08-06 15:49 | PDOC ---
ORTHO PROGRESS NOTES Subjective Patient is doing well. Complains of some muscle soreness and cramps in the right lower extremity. Denies numbness or tingling. Denies chest pain or shortness of breath. Pain is controlled. Participating in therapy doing well Post-op Day: 2 (Right total hip arthroplasty) Vitals Vital Signs Date Time Temp Pulse Resp B/P (MAP) Pulse Ox O2 Delivery O2 Flow Rate FiO2 08/06/16 14:35 Room Air 08/06/16 12:15 20 08/06/16 07:00 97.3 100 151/96 (114) 96 97.3 08/05/16 11:00 2.0 Labs Laboratory Tests Test 08/05/16 04:40 08/06/16 04:20 Hemoglobin 11.5 g/dL (13.0-17.5) 11.5 g/dL (13.0-17.5) Hematocrit 35.0 % (39.0-53.0) 33.9 % (39.0-53.0) Mean Corpuscular Hemoglobin Concent 33 g/dL (31-37) 34 g/dL (31-37) Prothrombin Time 15.2 SEC (11.7-14.0) 15.0 SEC (11.7-14.0) Prothromb Time International Ratio 1.3 (0.8-1.1) 1.3 (0.8-1.1) Sodium Level 139 mmol/L (136-145) Potassium Level 4.1 mmol/L (3.5-5.1) Chloride Level 102 mmol/L (98-107) Carbon Dioxide Level 31 mmol/L (21-32) Anion Gap 6 (6-14) Blood Urea Nitrogen 20 mg/dL (8-26) Creatinine 0.8 mg/dL (0.7-1.3) Estimated GFR (Cockcroft-Gault) 95.3 Glucose Level 96 mg/dL (70-99) Calcium Level 8.8 mg/dL (8.5-10.1) Laboratory Tests Test 08/06/16 04:20 Hemoglobin 11.5 g/dL (13.0-17.5) Hematocrit 33.9 % (39.0-53.0) Mean Corpuscular Hemoglobin Concent 34 g/dL (31-37) Prothrombin Time 15.0 SEC (11.7-14.0) Prothromb Time International Ratio 1.3 (0.8-1.1) Sodium Level 139 mmol/L (136-145) Potassium Level 4.1 mmol/L (3.5-5.1) Chloride Level 102 mmol/L (98-107) Carbon Dioxide Level 31 mmol/L (21-32) Anion Gap 6 (6-14) Blood Urea Nitrogen 20 mg/dL (8-26) Creatinine 0.8 mg/dL (0.7-1.3) Estimated GFR (Cockcroft-Gault) 95.3 Glucose Level 96 mg/dL (70-99) Calcium Level 8.8 mg/dL (8.5-10.1) Notes Patient is awake and alert. Sitting up in chair. Breathing unlabored, no acute distress. Incision covered with dressing, dressing is intact. Neurovascular intact right lower extremity. Problems: (1) Degenerative joint disease of right hip Assessment and Plan Continue therapy, weightbearing as tolerated Pain controlled, add when necessary muscle relaxer Anticoagulation per pharmacy Anticipate discharge tomorrow Problem Qualifiers (1) Degenerative joint disease of right hip: Osteoarthritis type: primary Qualified Codes: M16.11 - Unilateral primary osteoarthritis, right hip CORONA RIOS DERRICK WORKER WELL SERVICE August 06, 2016 15:49
[2016-08-06] MEDS ORDERED: WARFARIN 5 MG TABLET. PO ONE (16:00)
--- NOTE | 2016-08-06 16:00 | PATHOLOGY ---
PATHOLOGY REPORT * * * * * * * * FINAL DIAGNOSIS: Femoral head, right total hip arthroplasty: - Advanced degenerative arthritis. (JPM:csd; d/t: 08/06/2016) REPORT ELECTRONICALLY SIGNED BY: Haseeb Shah M.D. DATE/TIME: 08/06/2016 15:59 * * * * * * * * GROSS PATHOLOGY: The specimen is received in formalin labeled "Ian Flowers, right hip bone and tissue". Received are multiple segments of femoral head admixed with red-brown bone remains measuring 10.5 x 9.5 x 4.5 cm in aggregate dimensions. The articulating surfaces are light bolanos and granular in appearance with evidence of eburnation. The specimen is submitted representatively in cassette A1, following decalcification. (CAA; 08/05/2016) INITIAL CPT CODE(S): A; 63569, 51574 Professional services performed [place] [address] Technical services performed by [facility] at [address] [place] [address] [address] [address]. SPECIMEN(S) RECEIVED: A.Right hip bone and tissue CLINICAL HISTORY: Osteoarthritis PATIENT: IAN FLOWERS /AGE: 12 1945 (Age: 71) PATIENT #: [id number] ALT CASE #: SPECIMEN COLLECTION DATE: 08/04/2016 SPECIMEN RECEIVED DATE: 08/04/2016 [facility] - [address] [place] [address] - PHONE: [phone] * * * END OF REPORT * * *
[2016-08-06 17:55] VITALS: BP 134/77
[2016-08-06] MEDS: ATORVASTATIN CALCIUM 10 MG TABLET. PO SCH (20:55)
[2016-08-06] MEDS: MONTELUKAST SODIUM 10 MG TABLET. PO SCH (20:55)
[2016-08-06] MEDS: FINASTERIDE 5 MG TABLET. PO SCH (20:56)
[2016-08-06] MEDS: TAMSULOSIN 0.4 MG CAP.ER.24H. PO SCH (20:56)
[2016-08-06] MEDS: LOSARTAN POTASSIUM 50 MG TABLET. PO SCH (20:57)
[2016-08-07] MEDS: IV DEXTROSE 5 %-0.45 % NACL 1,000 ML IV SCH ×2 (00:43→10:43)
[2016-08-07 04:38] LABS: HEMOGLOBIN 10.4 g/dL (13.0-17.5)
[2016-08-07 04:49] LABS: INR 1.3 (0.8-1.1); PROTHROMBIN TIME PATIENT 15.5 SEC (11.7-14.0)
[2016-08-07 05:06] LABS: CALCIUM 8.1 mg/dL (8.5-10.1); CREATININE 0.8 mg/dL (0.7-1.3); GFR 95.3; POTASSIUM 3.9 mmol/L (3.5-5.1)
[2016-08-07 05:47] VITALS: BP 150/87
[2016-08-07] MEDS: CARVEDILOL 12.5 MG TABLET. PO SCH (06:31)
[2016-08-07] MEDS: PANTOPRAZOLE 40 MG TABLET.DR. PO SCH (06:32)
--- NOTE | 2016-08-07 08:28 | PDOC ---
CARLOSCatherineSLICK STALLWORTH SKIP HOIST OPERATOR 08/07/16 0828: IM PROGRESS NOTES- Subjective Subjective operative leg pain improved Objective Objective no distress, Vitals Vital Signs Date Time Temp Pulse Resp B/P (MAP) Pulse Ox O2 Delivery O2 Flow Rate FiO2 08/07/16 06:31 95 150/87 08/07/16 05:47 97.9 18 97 Room Air 97.9 Input & Output Intake and Output 08/07/16 07:00 Intake Total 1100 ml Balance 1100 ml Intake Oral 1100 ml # Voids 9 # Bowel Movements 1 Physical Exam Physical Exam General appearance - alert,well appearing, and in no distress and oriented to person, place, and time Mental Status - alert, oriented to person, place, and time, affect appropriate to mood Head - normal Chest - clear to auscultation, no wheezes, rales or rhonchi, symmetric air entry Heart - S1 and S2 normal Abdomen - soft, nontender, nondistended, no masses or organomegaly Neurological - alert and oriented Musculoskeletal - no muscular tenderness noted Extremities - mild swelling RLE Skin - warm and dry Labs Laboratory Tests Test 08/06/16 04:20 08/07/16 04:23 Hemoglobin 11.5 g/dL (13.0-17.5) 10.4 g/dL (13.0-17.5) Hematocrit 33.9 % (39.0-53.0) 31.0 % (39.0-53.0) Mean Corpuscular Hemoglobin Concent 34 g/dL (31-37) 34 g/dL (31-37) Prothrombin Time 15.0 SEC (11.7-14.0) 15.5 SEC (11.7-14.0) Prothromb Time International Ratio 1.3 (0.8-1.1) 1.3 (0.8-1.1) Sodium Level 139 mmol/L (136-145) 138 mmol/L (136-145) Potassium Level 4.1 mmol/L (3.5-5.1) 3.9 mmol/L (3.5-5.1) Chloride Level 102 mmol/L (98-107) 102 mmol/L (98-107) Carbon Dioxide Level 31 mmol/L (21-32) 31 mmol/L (21-32) Anion Gap 6 (6-14) 5 (6-14) Blood Urea Nitrogen 20 mg/dL (8-26) 21 mg/dL (8-26) Creatinine 0.8 mg/dL (0.7-1.3) 0.8 mg/dL (0.7-1.3) Estimated GFR (Cockcroft-Gault) 95.3 95.3 Glucose Level 96 mg/dL (70-99) 96 mg/dL (70-99) Calcium Level 8.8 mg/dL (8.5-10.1) 8.1 mg/dL (8.5-10.1) Laboratory Tests Test 08/07/16 04:23 Hemoglobin 10.4 g/dL (13.0-17.5) Hematocrit 31.0 % (39.0-53.0) Mean Corpuscular Hemoglobin Concent 34 g/dL (31-37) Prothrombin Time 15.5 SEC (11.7-14.0) Prothromb Time International Ratio 1.3 (0.8-1.1) Sodium Level 138 mmol/L (136-145) Potassium Level 3.9 mmol/L (3.5-5.1) Chloride Level 102 mmol/L (98-107) Carbon Dioxide Level 31 mmol/L (21-32) Anion Gap 5 (6-14) Blood Urea Nitrogen 21 mg/dL (8-26) Creatinine 0.8 mg/dL (0.7-1.3) Estimated GFR (Cockcroft-Gault) 95.3 Glucose Level 96 mg/dL (70-99) Calcium Level 8.1 mg/dL (8.5-10.1) Meds Current Medications Warfarin Sodium (Coumadin) 5 mg 1X WARF ONCE PO Last administered on 08/06/16t 17:04; Start 08/06/16 at 16:00; Stop 08/06/16 at 16:01; Status DC Assessment Assessment IMPRESSION: 1. accelerated HTN 2. urine retention secondary to obstructive BPH 3. s/p R THR secondary to DJD with post op dislocation with open reduction. 4. anemia CD 5. anticoagulation therapy post THR 6. constipation 7. chronic LBP with h/o hemilaminectomy 8. anxiety 9. RA PLAN: accelerated HTN resume meds, monitor Coreg increased to 12.5mg bid 08/05-minimal improvement improving Obstructive BPH currently pryor placed post straight cath with 600cc urine obtained continue finasteride pryor dc-emptying bladder TKR continue pain meds PTOT rehab at discharge anticoag per pharmacy INR 08/07 1.3 Celebrex 200mg bid warfarin per pharmacy anemia CD HH pending 08/05 Hgb 08/07 10 DVT/GI ROBERT Warfarin PPI For further plan of care, please refer to the orders. Plan to f/u office in 5 days when discharged. Plan Plan For more details regarding further plans, please refer to the orders. BASSAM SMITH MD 08/07/16 1001: IM PROGRESS NOTES- Assessment Assessment INR low.On Coumadin 7.5 mg daily at home- advised to increase it to 8 mg daily. PT /INR as outpt. see in office in 6 days. The patient was seen and examined by me. Chart reviewed and plan of care formulated. Discussed with, reviewed and agree with HAIR BOILER OPERATOR's notes, plan of care and orders with modifications as necessary. For more details regarding further plans, please refer to the orders. SLICK RUTHERFORD APRN August 07, 2016 08:28 BASSAM SMITH MD August 07, 2016 10:01
[2016-08-07] MEDS: FERROUS SULFATE 325 MG TABLET. PO SCH ×2 (08:46→17:00)
[2016-08-07] MEDS: CELECOXIB 200 MG CAPSULE. PO SCH (08:47)
[2016-08-07] MEDS: CHOLECALCIFEROL (VITAMIN D3) 1,000 UNIT TABLET PO SCH (08:47)
[2016-08-07] MEDS: SENNOSIDES/DOCUSATE 8.6/50MG TABLET. PO SCH (08:47)
[2016-08-07] MEDS: MULTIVITAMIN with MINERAL TABLET. PO SCH (08:47)
[2016-08-07] MEDS: oxyCODONE/APAP 7.5/325 1 TAB TABLET PO PRN ×2 (08:47→16:48)
[2016-08-07] MEDS: HYDROXYCHLOROQUINE 200 MG TABLET PO SCH (08:48)
[2016-08-07] MEDS ORDERED: WARFARIN 5 MG TABLET. PO ONE (16:00)
[2016-08-07 16:30] VITALS: BP 131/76
--- NOTE | 2016-08-07 21:16 | DS ---
DATE OF DISCHARGE: 08/07/2016 PRINCIPAL DIAGNOSIS: Degenerative joint disease of right hip. PROCEDURE: Right total hip arthroplasty. DISCHARGE MEDICATIONS: Include Percocet 7.5/325 mg 1-2 p.o. q. 4 hours p.r.n. pain, Coumadin as directed by Anticoagulation Clinic, resume preoperative medications, also, Celebrex 200 mg daily. DISCHARGE INSTRUCTIONS: Restrictions include weightbearing as tolerated, no strict total hip precautions. Report any redness, drainage, fever, or chills. Follow up in 2 weeks. DISPOSITION: Home with home health. BRIEF DESCRIPTION OF HOSPITAL COURSE: The patient underwent a right total hip arthroplasty. In postop holding, was having significant discomfort, was thrashing around lied in bed he claimed he could not void and ended up with a hip dislocation, was taken back to the operating room for open reduction and treatment, underwent cabling of the hip with this exploration and postoperatively advanced to physical therapy quite well. His urinary issues resolved. Pain was well controlled. He performed well with physical therapy, was otherwise medically stable. Additional x-ray was obtained upstairs on postop day #1 due to his increased upper thigh pain, but showed intact implant. He progressed, otherwise, through physical therapy and was discharged home in stable condition. GRACIA CERVANTES MD DR: ALEJANDRO/berna JOB#: [id number] / [id number]
== END 2016-08-07 17:15 | disposition home health service (06) | DRG 467 ==
LOC: OPSVCIP 07:55 → 4 SOUTHEST 18:50
PROVIDERS: ADMIT Orthopaedic Surgery; ATTEND Orthopaedic Surgery
PROC: 0SW90JZ Revision of Synthetic Substitute in Right Hip Joint, Open Approach (ICD-10-PCS; 2016-08-04)
PROC: 0SWR0JZ Revision of Synthetic Substitute in Right Hip Joint, Femoral Surface, Open Approach (ICD-10-PCS; 2016-08-04)
PROC: 0SR90JZ Replacement of Right Hip Joint with Synthetic Substitute, Open Approach (ICD-10-PCS; principal; 2016-08-04 09:25)
DX: M16.11 Unilateral primary osteoarthritis, right hip (principal); T84.020A Dislocation of internal right hip prosthesis, initial encounter; D64.9 Anemia, unspecified; I48.91 Unspecified atrial fibrillation; M06.9 Rheumatoid arthritis, unspecified; E78.5 Hyperlipidemia, unspecified; G89.29 Other chronic pain; K59.00 Constipation, unspecified; N18.2 Chronic kidney disease, stage 2 (mild); N40.1 Benign prostatic hyperplasia with lower urinary tract symptoms; Z96.643 Presence of artificial hip joint, bilateral; Z96.651 Presence of right artificial knee joint; F41.9 Anxiety disorder, unspecified; M62.838 Other muscle spasm; I12.9 Hypertensive chronic kidney disease with stage 1 through stage 4 chronic kidney disease, or unspecified chronic kidney disease; J45.909 Unspecified asthma, uncomplicated; Z96.642 Presence of left artificial hip joint; R33.8 Other retention of urine; Z83.3 Family history of diabetes mellitus; T81.89XA Other complications of procedures, not elsewhere classified, initial encounter
CPT/HCPCS: 36415; 72170; 73501; 76000; 80048; 85014; 85018; 85610; 85730; 86850; 86900; 86901; 88304; 88311; C1887; J0171; J0690; J0780; J1100; J1885; J2250; J2270; J2405; J2704; J2710; J2795; J3010; J3490; J7030; J7120; S0028; 97116; 97150; 97530; C1776

== ENCOUNTER 2016-08-09 18:33 | Emergency (ER) | payer MEDICARE, OTHER ==
[~2016-08-09 18:33] MED LIST changes: +CELE200C PO; -CELECOXIB 200 MG CAPSULE. PO PRN; -HYDROcodone/APAP 7.5/325MG 1 TAB TABLET PO PRN; -HYDROmorphone 2 MG/ML VIAL IV PRN; -IV RINGERS,LACTATED 1000ML 1,000 ML IV SCH; -LIDOCAINE 1% 1 ML SYRINGE. ID PRN; -MORPHINE SULFATE 2 MG/ML DISP.SYRIN. IV PRN; -MORPHINE SULFATE 5 MG, KETOROLAC TROMETHAMINE 30 MG, ROPIVacaine 0.5% PF 60 ML, EPINEPH... INT ART ONE; -ONDANSETRON PF 4 MG/2 ML VIAL. IV PRN; -PROCHLORPERAZINE 10 MG/2 ML VIAL. IV PRN; -TRANEXAMIC ACID 1,000 MG in IV NORMAL SALINE 50ML 50 ML INJ ONE; -fentaNYL PF VIAL 100 MCG/2 ML VIAL IV PRN
[2016-08-09 19:56] VITALS: BP 165/79
--- NOTE | 2016-08-09 21:03 | PHYS DOC ---
Past Medical History Past Medical History: A-Fib, Arthritis, Hypertension, Other Additional Past Medical Histor: KIDNEY DISEASE Past Surgical History: Knee Replacement, Tonsillectomy, Other Additional Past Surgical Histo: BACK, L HIP,RIGHT HIP Alcohol Use: Occasionally Drug Use: None Adult General Chief Complaint Chief Complaint: bleeding, dressing change HPI HPI Patient is a 71 year old male who recently had hip replacement surgery in the [facility], presents from home with the complaint of blood on the dressing, he was told by his visiting nurse to come to the ED and get the dressing changed. Patient states he was advised that if the dressing gets bloody, it's a good place for bacteria did grow, and he needs to come in and get it changed. He has no other complaints. He's been getting along well. He did have some postoperative swelling of the right leg but no pain anywhere else besides the joint replacement area. Orthopedic surgeon Dr. Bolivar Review of Systems Review of Systems Constitutional: Denies fever or chills [] Respiratory: Denies cough or shortness of breath [] Integument: As in history of present illness Allergies Allergies Allergies Coded Allergies Type Severity Reaction Last Updated Verified chlorhexidine Allergy Intermediate Rash 08/04/16 Yes Physical Exam Physical Exam Constitutional: Well developed, well nourished, no acute distress, non-toxic appearance. Alert, mentating normally. Neck: Normal range of motion, no stridor. [] Skin: Warm, dry, no erythema, no rash. [] Extremities: Right hip area has a dressing in place that does appear to have blood under the dressing, no drainage or blood coming out from under the dressing at this time. The dressing has been reinforced by the patient at home. Skin around the dressing is normal in appearance without evidence of cellulitis. The right lower extremity has mild swelling but is soft and appearance is not consistent with DVT. Neurologic: Alert and oriented X 3, normal motor function, normal sensory function, no focal deficits noted. [] Current Patient Data Vital Signs Vital Signs Date Time Temp Pulse Resp B/P (MAP) Pulse Ox O2 Delivery O2 Flow Rate FiO2 08/09/16 19:56 97.9 92 18 165/79 (107) 96 Room Air 97.9 EKG EKG [] Radiology/Procedures Radiology/Procedures [] Course & Med Decision Making Course & Med Decision Making Pertinent Labs and Imaging studies reviewed. (See chart for details) 71-year-old male presents for dressing change after his hip dressing is saturated with blood. ED nursing staff obtained appropriate dressing material from the surgical floor. ED nurse removed the bloody dressings, cleaned the area well with chlorhexidine sponge, dried the area well, and replaced a surgical dressing like the original one. The patient is stable for discharge. [] Dragon Disclaimer Dragon Disclaimer This electronic medical record was generated, in whole or in part, using a voice recognition dictation system. Departure Departure Impression: Primary Impression: Post-operative complication Additional Impression: Dressing change Disposition: 01 HOME, SELF-CARE Condition: STABLE Referrals: BASSAM SMITH MD (PCP) Patient Instructions: Dressing Change, [id number] Additional Instructions: Continue to follow the postoperative instructions were given. Leave the dressing in place until it is scheduled to be replaced or until it becomes bloody again, in which case return for dressing change. Problem Qualifiers JOAQUIM MORRIS MD August 09, 2016 21:03
== END 2016-08-09 21:30 | disposition home or self-care (01) ==
LOC: ER 18:33
DX: M96.89 Other intraoperative and postprocedural complications and disorders of the musculoskeletal system (principal); I10 Essential (primary) hypertension; I48.91 Unspecified atrial fibrillation; Y83.8 Other surgical procedures as the cause of abnormal reaction of the patient, or of later complication, without mention of misadventure at the time of the procedure; Y79.3 Surgical instruments, materials and orthopedic devices (including sutures) associated with adverse incidents
CPT/HCPCS: 99283

== ENCOUNTER → 2016-11-09 | Outpatient (CLI) | payer MEDICARE, OTHER ==
[~2016-11-09] MED LIST changes: +DICL100G18 TP; -DICL100G7 TP
--- NOTE | 2016-11-09 16:19 | KCIC ---
MR of the left shoulder Indication: Left shoulder pain. Progressing for several months. Technique: Standard multiplanar sequences are obtained. Findings: Acromioclavicular joint: Mildly degenerative. Rotator cuff: Small nonretracted full-thickness tear of the supraspinatus tendon footprint measures about 12 mm AP diameter. Tendinosis of the remaining rotator cuff. Mild edema within the supraspinatus and infraspinatus muscles. Trace subdeltoid bursal fluid. Glenohumeral cartilage: No acute defect or advanced DJD. Fluid: Trace joint fluid. Labrum: Mild signal in the posteroinferior through anteroinferior labrum. There is also signal within the superior labrum. Biceps tendon: Mild tendinosis. Bones: No lesion or acute fracture. Soft tissue: No acute findings. Impression: 1. Rotator cuff tendinosis. Small nonretracted full-thickness rotator cuff tear at the supraspinatus tendon. 2. Labral degeneration, with probable superior and inferior labral tearing. Electronically signed by: Fan Mohamud MD (11/09/2016 4:16 PM) [id number]
== END | disposition home or self-care (01) ==
LOC: KCIC MRI 14:55
PROVIDERS: ATTEND Nurse Practitioner Gerontology
DX: M75.102 Unspecified rotator cuff tear or rupture of left shoulder, not specified as traumatic (principal); M75.92 Shoulder lesion, unspecified, left shoulder
CPT/HCPCS: 73221

== ENCOUNTER → 2017-03-09 | Outpatient (CLI) | payer MEDICARE, OTHER ==
[2017-01-08 10:51] VITALS: BP 176/111
--- NOTE | 2017-03-09 17:09 | CARD ---
APPROVED REPORT EXAM: Two-dimensional and M-mode echocardiogram with Doppler and color Doppler. Other Information Quality : Good INDICATION Atrial Fibrillation 2D DIMENSIONS RVDd3.1 (2.9-3.5cm)Left Atrium(2D)4.6 (1.6-4.0cm) IVSd1.6 (0.7-1.1cm)Aortic Root(2D)3.6 (2.0-3.7cm) LVDd4.9 (3.9-5.9cm)LVOT Diameter2.3 (1.8-2.4cm) PWd1.4 (0.7-1.1cm)LVDs3.8 (2.5-4.0cm) FS (%) 25.0 %SV52.9 ml LVEF(%)50.0 (>50%) Aortic Valve AoV Peak Jone.106.1cm/sAoV VTI20.4cm AO Peak GR.4.5mmHgLVOT Peak Jone.107.3cm/s AO Mean GR.3mmHgAVA (VMAX)4.36cm2 OBDULIO (VTI)4.50cm2 LEFT VENTRICLE The left ventricle is normal size. There is mild concentric left ventricular hypertrophy. Left ventri phyllis systolic function is low normal. The Ejection Fraction is estimated at 50%. There is normal LV se gmental wall motion. RIGHT VENTRICLE The right ventricle is normal size. The right ventricular systolic function is normal. ATRIA The left atrium is mildly dilated. The right atrium is mildly dilated. The interatrial septum is inta ct with no evidence for an atrial septal defect or patent foramen ovale as noted on 2-D or Doppler im aging. AORTIC VALVE The aortic valve is calcified but opens well. Doppler and Color Flow revealed no significant aortic r egurgitation. There is no significant aortic valvular stenosis. MITRAL VALVE The mitral valve is normal in structure and function. There is no evidence of mitral valve prolapse. There is no mitral valve stenosis. Doppler and Color-flow revealed trace mitral regurgitation. TRICUSPID VALVE The tricuspid valve is normal in structure and function. Doppler and Color Flow revealed trace tricus pid regurgitation. There is no tricuspid valve stenosis. PULMONIC VALVE The pulmonary valve is normal in structure and function. Doppler and Color Flow revealed trace to mil d pulmonic valvular regurgitation. There is no pulmonic valvular stenosis. GREAT VESSELS The aortic root is normal in size. The ascending aorta is mildly dilated at 3.6 cm. The IVC is normal in size and collapses >50% with inspiration. PERICARDIAL EFFUSION There is no evidence of significant pericardial effusion. Critical Notification Critical Value: No <Conclusion> The left ventricle is normal size. Left ventricle systolic function is low normal. The Ejection Fraction is estimated at 50%. There is mild concentric left ventricular hypertrophy. The left atrium is mildly dilated. There is no significant aortic valvular stenosis. Doppler and Color Flow revealed no significant aortic regurgitation. Doppler and Color-flow revealed trace mitral regurgitation. Doppler and Color Flow revealed trace tricuspid regurgitation. The ascending aorta is mildly dilated at 3.6 cm.
== END | disposition home or self-care (01) ==
LOC: ECHO 12:44
PROVIDERS: ATTEND Internal Medicine Cardiovascular Disease
DX: I48.2 Chronic atrial fibrillation (principal)
CPT/HCPCS: 93306